=== PATIENT | female | born 1950 | race Caucasian/White ===

== ENCOUNTER 2019-08-28 17:59 | Inpatient (IN) | payer OTHER, MEDICAID ==
[~2019-08-28] VITALS: Ht 160 cm; Wt 64.4 kg
[2019-08-28 18:00] VITALS: Ht 160 cm; Wt 64.4 kg
[2019-08-28] MEDS ORDERED: POTASSIUM CHLO10 MEQ PO (18:42)
[2019-08-28] MEDS ORDERED: ELIQUIS2.5 MG PO (18:42)
[2019-08-28] MEDS ORDERED: AMIODARONE200 MG PO (18:43)
[2019-08-28] MEDS ORDERED: GLIPIZIDE5 M2 PO (18:43)
[2019-08-28] MEDS ORDERED: LIPITOR80 MG PO (18:43)
[2019-08-28] MEDS ORDERED: PHARMASSURE FO0.4 MG PO (18:45)
[2019-08-28] MEDS ORDERED: GOOD SENSE OMEP20 MG PO (18:45)
[2019-08-28] MEDS ORDERED: CARVEDILOL3.125 M1 PO (18:45)
[2019-08-28] MEDS ORDERED: CLARITIN LIQUI-10 MG PO (18:46)
[2019-08-28] MEDS ORDERED: PRILOSEC OTC20 M1 PO (18:48)
[2019-08-28] MEDS ORDERED: ASPIR 8181 MG PO (18:48)
[2019-08-28] MEDS ORDERED: FOLBIC RF1 TAB PO (18:48)
[2019-08-28 19:01] LABS: BASOPHIL % 0.4 % (0-2); PLATELET COUNT 207 x10^3mcL (130-400)
[2019-08-28 19:03] LABS: RED CELL DISTRIBUTION WIDTH 16.9 % (11.5-14.5)
[2019-08-28 19:22] LABS: BILIRUBIN TOTAL 0.4 mg/dL (0.20-1.00); CALCIUM 6.9 mg/dL (8.5-10.1); CARBON DIOXIDE 25.6 mmol/L (21-32); POTASSIUM SERUM 3.5 mmol/L (3.5-5.1)
[2019-08-28 19:23] LABS: ALBUMIN 1.6 g/dL (3.4-5.0); TOTAL PROTEIN, SERUM 4.8 g/dL (6.4-8.2)
[2019-08-28 19:24] LABS: CREATININE SERUM 6.3 mg/dL (0.6-1.0); FREE T4 1.37 ng/dL (0.76-1.46); FREE THYROXINE INDEX 4.3 ug/dL (1.4-4.5); T4(THYROXINE) 11.5 ug/dL (4.7-13.3)
[2019-08-28 19:39] LABS: T3 TOTAL 0.5 ng/mL
[2019-08-28 22:42] VITALS: BP 113/53
[2019-08-29 04:41] LABS: BASOPHIL % 0.3 % (0-2); PLATELET COUNT 222 x10^3mcL (130-400)
[2019-08-29 04:44] LABS: RED CELL DISTRIBUTION WIDTH 17.1 % (11.5-14.5)
[2019-08-29 05:00] LABS: CALCIUM 6.6 mg/dL (8.5-10.1); CARBON DIOXIDE 24.8 mmol/L (21-32); PHOSPHOROUS 4.2 mg/dL (2.5-4.9); POTASSIUM SERUM 4.1 mmol/L (3.5-5.1)
[2019-08-29 05:02] LABS: CREATININE SERUM 6.5 mg/dL (0.6-1.0)
[2019-08-29 07:10] VITALS: BP 105/55
[2019-08-29 11:25] VITALS: BP 130/63
[2019-08-29 16:30] VITALS: BP 155/69
[2019-08-29 22:05] VITALS: BP 165/67
[2019-08-30 06:03] VITALS: BP 164/64
[2019-08-30 06:30] LABS: BASOPHIL % 0.5 % (0-2); PLATELET COUNT 218 x10^3mcL (130-400)
[2019-08-30 06:45] LABS: RED CELL DISTRIBUTION WIDTH 16.8 % (11.5-14.5)
[2019-08-30 06:55] LABS: CALCIUM 6.9 mg/dL (8.5-10.1); CARBON DIOXIDE 23.6 mmol/L (21-32); MAGNESIUM 1.6 mg/dL (1.8-2.4); PHOSPHOROUS 4.2 mg/dL (2.5-4.9); POTASSIUM SERUM 3.3 mmol/L (3.5-5.1)
[2019-08-30 06:59] LABS: CREATININE SERUM 6.7 mg/dL (0.6-1.0)
[2019-08-30 08:35] VITALS: BP 166/71
[2019-08-30 09:00] LABS: BILIRUBIN TOTAL 0.3 mg/dL (0.20-1.00); CALCIUM 6.8 mg/dL (8.5-10.1); CARBON DIOXIDE 21.6 mmol/L (21-32); POTASSIUM SERUM 3.2 mmol/L (3.5-5.1)
[2019-08-30 09:40] LABS: ALBUMIN 1.4 g/dL (3.4-5.0); CREATININE SERUM 6.8 mg/dL (0.6-1.0); TOTAL PROTEIN, SERUM 4.5 g/dL (6.4-8.2)
[2019-08-30 12:30] VITALS: BP 189/91
[2019-08-30 16:30] VITALS: BP 162/73
[2019-08-30 22:14] VITALS: BP 193/91
[2019-08-31 00:58] VITALS: BP 118/64
[2019-08-31 06:23] LABS: BASOPHIL % 0.3 % (0-2); PLATELET COUNT 205 x10^3mcL (130-400)
[2019-08-31 06:31] VITALS: BP 131/57
[2019-08-31 06:34] LABS: RED CELL DISTRIBUTION WIDTH 16.8 % (11.5-14.5)
[2019-08-31 06:38] LABS: CALCIUM 7.1 mg/dL (8.5-10.1); POTASSIUM SERUM 3.2 mmol/L (3.5-5.1)
[2019-08-31 06:58] LABS: CREATININE SERUM 6.7 mg/dL (0.6-1.0)
[2019-08-31 08:24] VITALS: BP 150/75
[2019-08-31 12:35] VITALS: BP 145/70
[2019-08-31 16:33] VITALS: BP 147/78
[2019-08-31 20:46] VITALS: BP 128/67
[2019-09-01 05:13] VITALS: BP 133/62
[2019-09-01 06:26] LABS: BASOPHIL % 0.4 % (0-2); PLATELET COUNT 216 x10^3mcL (130-400)
[2019-09-01 06:41] LABS: RED CELL DISTRIBUTION WIDTH 16.9 % (11.5-14.5)
[2019-09-01 06:58] LABS: CALCIUM 7.8 mg/dL (8.5-10.1); CARBON DIOXIDE 22.6 mmol/L (21-32); POTASSIUM SERUM 3.3 mmol/L (3.5-5.1)
[2019-09-01 07:02] LABS: CREATININE SERUM 6.7 mg/dL (0.6-1.0)
[2019-09-01 08:37] VITALS: BP 139/68
[2019-09-01 13:33] VITALS: BP 115/55
[2019-09-01 17:04] VITALS: BP 134/69
[2019-09-01 19:20] VITALS: BP 139/67
[2019-09-02 05:42] VITALS: BP 130/69
[2019-09-02 09:04] VITALS: BP 114/82
[2019-09-02 13:08] VITALS: BP 163/75
[2019-09-02 15:00] VITALS: BP 119/61
[2019-09-02 16:13] VITALS: BP 119/61
== END 2019-09-02 16:51 | disposition home health service (06) | DRG 637 ==
LOC: ED 17:59 → IC 21:07 → DU 08-29 16:25 → IC 09-02 06:16 → DU 09-02 06:17
PROVIDERS: Emergency Medicine; Internal Medicine; ADMIT Internal Medicine
DX: E11.649 Type 2 diabetes mellitus with hypoglycemia without coma (principal); G93.41 Metabolic encephalopathy; E43 Unspecified severe protein-calorie malnutrition; I12.0 Hypertensive chronic kidney disease with stage 5 chronic kidney disease or end stage renal disease; E87.1 Hypo-osmolality and hyponatremia; N18.6 End stage renal disease; E11.22 Type 2 diabetes mellitus with diabetic chronic kidney disease; E11.65 Type 2 diabetes mellitus with hyperglycemia; D63.1 Anemia in chronic kidney disease; Z99.2 Dependence on renal dialysis; Z68.27 Body mass index [BMI] 27.0-27.9, adult; Z95.1 Presence of aortocoronary bypass graft; Z79.84 Long term (current) use of oral hypoglycemic drugs; Z86.73 Personal history of transient ischemic attack (TIA), and cerebral infarction without residual deficits
CPT/HCPCS: 78226; 82962; 83880; 84439; 87046; 87046-59; A9537; C9113; G0378; J2354; J2405; J2543; J3370; J3475; J3490; J7030; J7040; J7042; J7050; Q0092

== ENCOUNTER 2019-11-02 18:46 | Inpatient (IN) | payer OTHER, MEDICAID ==
[~2019-11-02] VITALS: Ht 154.9 cm; Wt 64.7 kg
[~2019-11-02 18:46] MED LIST: AMIODARONE200 MG PO; ASPIR 8181 MG PO; CARVEDILOL3.125 M1 PO; CLARITIN LIQUI-10 MG PO; ELIQUIS2.5 MG PO; FOLBIC RF1 TAB PO; GLIPIZIDE5 M2 PO; GOOD SENSE OMEP20 MG PO; LIPITOR80 MG PO; PHARMASSURE FO0.4 MG PO; POTASSIUM CHLO10 MEQ PO; PRILOSEC OTC20 M1 PO
--- NOTE | 2019-11-02 19:18 | NUR ---
PT BIBA TO ED FOR C/C OF BACK PAIN. PER PT, BACK PAIN BEGAN "A COUPLE OF DAYS AGO".
--- NOTE | 2019-11-02 19:44 | NUR ---
DR. PERRY AT BEDSIDE.
[2019-11-02 20:59] LABS: BASOPHIL % 0.2 % (0-2); PLATELET COUNT 223 x10^3mcL (130-400)
[2019-11-02 21:08] LABS: ALKALINE PHOSPHATASE 104 U/L (46-116); ALT/SGPT 121 U/L (14-59); AMYLASE 99 U/L (25-115); AST/SGOT 154 U/L (15-37); CALCIUM 7.4 mg/dL (8.5-10.1); CARBON DIOXIDE 27.3 mmol/L (21-32); CHLORIDE SERUM 99 mmol/L (98-107); GLUCOSE SERUM 115 mg/dL (74-106); LIPASE 42 IU/L (73-393); POTASSIUM SERUM 3.8 mmol/L (3.5-5.1); SODIUM SERUM 137 mmol/L (136-145)
[2019-11-02 21:10] LABS: ALBUMIN 1.4 g/dL (3.4-5.0); GFR1 6 mL/min; TOTAL PROTEIN, SERUM 5.2 g/dL (6.4-8.2)
[2019-11-02 21:12] LABS: CREATININE SERUM 7.1 mg/dL (0.6-1.0)
[2019-11-02 21:43] LABS: rbc morphology (normal/abnorm) ABNORMAL (NORMAL)
--- NOTE | 2019-11-02 23:44 | NUR ---
PT IS LAYING IN GURNEY AWAKE, SPEAKING IN FULL CLEAR SENTENCES. PT MEDICATED PER MD ORDER, VERBALIZED UNDERSTANDING OF ALL MEDICATIONS PRIOR TO ADMINISTRATION. RESP E/U, NAD NOTED. RESIDENT AT BEDSIDE WITH PT.
[2019-11-02] MEDS ORDERED: CALCIUM ACETAT667 M3 PO (23:49)
[2019-11-02] MEDS ORDERED: FOL1 PO (23:50)
[2019-11-03] VITALS (8 sets, daily range): BP systolic 75–129; BP diastolic 43–64
--- NOTE | 2019-11-03 00:02 | NUR ---
REPORT CALLED TO ZOHREH EDEN TO ASSUME CARE OF PT.
[2019-11-03 00:20] LABS: CHOLESTEROL/HDL RATIO 2.9
--- NOTE | 2019-11-03 00:20 | NUR ---
RECEIVED PT VIA [facility] FROM E/D, ACCOMPANIED BY RN AND MST MT/US. PT A/A/O X 4, CALM, COOPERATIVE; WEARS GLASSES (W/ PT). ON TELE # 25, SR + 1ST DEG AVB, HR 80, DENIES CHEST PAIN OR DISCOMFORT AT THIS TIME. SCD BY BEDSIDE. JOSHUA LUNGS CONGESTED, CHEST RISING EVENLY, R/A, 96%, PROD COUGH W/ CLEAR SPUTUM, HOB UP. ABD SOFT, ROUND, NON-TENDER, NORMOACTIVE BOWEL SOUNDS X 4 QUADS, LAST BM 11/02/19, DIARRHEA. ANURIC, ON NIGHTLY PD (PD SITE TO [facility]); ALSO NON-WORKING RFA SHUNT. GENERALIZED WEAKNESS, USES W/C @ HOME, C/O L UPPER BACK RADIATING TO CHEST CONSTANT SHARP PAIN 4/10, EXACERBATED BY MOVEMENT, RELIEVED BY REST AND PAIN MEDICATION; FALL RISK PROTOCOL IN PLACE. UNSTAGEABLE P/U TO R TROCHANTER, COVERED BY 4X4 GAUZE AND ISLAND DRESSING, CDI. IV SITE LH 24G, CDI. ORIENTED PT TO ROOM, BED CONTROLS, CALL LIGHT SYSTEM. SIDE RAILS UP X 2, BED IN LOW POSITION. WILL ENDORSE TO ZOHREH EDEN.
--- NOTE | 2019-11-03 04:52 | NUR ---
Pt. has c/o of coughing a lot at this time, and was coughing so much that it ended up caushing her to gag. Educated pt. to use the emesis bag to help collect her phlegm and called RT to give PRN treatment as ordered to help facilitate good breathing and to help with loosening up the secretions at this time. Otherwise, pt. stable, no c/o of SOB, no c/o of pain, chest pain, s/o distress. Will continue to monitor pt. until the end of shift and endorse to next shift RN.
[2019-11-03 07:17] LABS: CALCIUM 7.1 mg/dL (8.5-10.1); CARBON DIOXIDE 26.4 mmol/L (21-32); MAGNESIUM 1.1 mg/dL (1.8-2.4); PHOSPHOROUS 4.8 mg/dL (2.5-4.9)
--- NOTE | 2019-11-03 07:20 | NUR ---
RECEIVED REPORT FROM MEEK BRUNER. PATIENT RESTING COMFORTABLY IN BED WITH ALL NEEDS MET. SALINE LOCK TO LEFT HAND IS PATENT AND INTACT. NO REDNESS OR PAIN. TELE # 25 IN [place]. PT DENIES CHEST PAIN. PT ON ROOM AIR. NO C/O SOB AND NO DISTRESS NOTED. SWAB OF RT HIP ULCER OBTAINED BY MEEK AT THIS TIME. ALL QUESTIONS AND CONCERNS ADDRESSED.
[2019-11-03 07:28] LABS: BASOPHIL % 0.3 % (0-2); PLATELET COUNT 216 x10^3mcL (130-400)
[2019-11-03 07:38] LABS: CREATININE SERUM 7.4 mg/dL (0.6-1.0)
[2019-11-03 07:40] LABS: RED CELL DISTRIBUTION WIDTH 19.1 % (11.5-14.5)
--- NOTE | 2019-11-03 08:38 | NUR ---
NOTIFIED DR BARRAGAN OF PATIENT BP 71/36 & 78/38. ALSO NOTIFIED OF TROPONIN 0.120. DR STATED THAT THEY WILL BE BY TO SEE THE PATIENT SHORTLY.
--- NOTE | 2019-11-03 09:39 | NUR ---
SPOKE WITH DR BARRAGAN ABOUT BP AGAIN AND INQUIRED ABOUT POSSIBLE BOLUS. PT IS C/O MILD DIZZINESS BUT OTHERWISE ASYMPTOMATIC. ALSO INQUIRED ABOUT PERITONEAL DIALYSIS. DR LAZOS TO ORDER BOLUS AND STATED THAT A NEPHROLOGY CONSULT IS ORDERED.
--- NOTE | 2019-11-03 13:19 | NUR ---
IN TO RECHECK BP. BP IS 112/43, IMPROVED FROM PREVIOUS. WILL NOTIFY DR BARRAGAN.
--- NOTE | 2019-11-03 13:22 | NUR ---
RECEIVED CALL FROM DR MARLO ODONNELL NOTIFYING THAT HE ORDERED PERITONEAL DIALYSIS AND HAS TEXTED [facility]AMA. HE REQUESTED THAT I ALSO ATTEMPT TO CONTACT [facility]AMA AND LET HER KNOW THAT HE CAN BE CONTACTED DIRECTLY FOR CLAIRIFICATION OF ORDERS IF NEEDED. [facility] CALLED AND MESSAGE LEFT.
--- NOTE | 2019-11-03 14:14 | NUR ---
RECEIVED CALL FROM [facility]AMA NOTIFYING THAT SHE GOT MY MESSAGE AND WILL BE HERE FOR PERITONEAL DIALYSIS TONIGHT.
--- NOTE | 2019-11-03 14:16 | NUR ---
DR BARRAGAN NOTIFIED OF TROPONIN 0.140
--- NOTE | 2019-11-03 14:47 | NUR ---
PATIENT HAVING ECHO DONE NOW.
--- NOTE | 2019-11-03 16:10 | NUR ---
RECEIVED CALL FROM LAB INFORMING THAT ANOTHER STOOL SAMPLE WILL NEED TO BE COLLECTED FOR CULTURE AND WBC. PATIENT INFORMED TO NOTIFY WHEN SHE HAS BOWEL MOVEMENT FOR COLLECTION.
--- NOTE | 2019-11-03 16:51 | NUR ---
PT C/O CHEST AND BACK PAIN 5/10 THAT IS WORSENED WITH COUGHING. PT REPORTS PAIN IS THE SAME PAIN SHE CAME IN WITH BUT NOT SEVERE. NORCO ADMINISTERED (SEE eMAR). WILL REASSESS.
--- NOTE | 2019-11-03 19:12 | NUR ---
10 MINUTES AFTER BEGINNING INFUSION OF ZOSYN, PT C/O SEVERE SHIVERING. ZOSYN STOPPED AND NS RESUMED. REGIONAL ACCOUNT MANAGER CALL TO NOTIFY THAT PATIENT HR INCREASED TO 140'S. DR MOORE CALLED AND INFORMED THAT NO ITCHING, SWELLING, OR RASH ARE NOTED. STATED TO MONITOR FOR AND THEN RESUME ZOSYN AFTER A WHILE. IF PATIENT DEVELOPS SIMILAR SYMPTOMS THEN HE WILL D/C ZOSYN.
--- NOTE | 2019-11-03 20:21 | NUR ---
REPORT GIVEN TO MEEK BRUNER. ALL QUESTIONS AND CONERNS ADDRESSED. ALL CARES ENDORSED.
--- NOTE | 2019-11-03 20:25 | NUR ---
Pt. received from day shift, currently resting in bed, with peritoneal dialysis currently running at this time. Pt. is a/o x3, able to make needs known, able to follow commands at this time. Pt. at this time has no c/o of pain, chest pain, h/a, n/v, SOB, or s/o distress at this time. Pt. OB stool culture came back negative as per day shift, lab required a different sample, will attempt to get sample this shift. Otherwise, pt. stable, safety in check with call light placed within reach, educated pt. on when and how to use call light system. Will continue to monitor.
--- NOTE | 2019-11-04 00:25 | NUR ---
ASSUMED CARE OF PT AT THIS TIME. PT IS AWAKE, ALERT,ORIENTED X4. SHE IS WATCHING TV. NO C/O DISCOMFORT. PERITONEAL DIALYSI IN PROGRESS.
[2019-11-04 04:51] VITALS: BP 107/52
--- NOTE | 2019-11-04 05:30 | NUR ---
PERITONEAL DIALYSIS COMPLETED AT THISTIME W/ 5620 ML OUTPUT PER DIALYSIS NURSE. PT IN STABLE CONDITION.
--- NOTE | 2019-11-04 05:39 | NUR ---
PT SLEPT FAIRLY. SHE REMAINS ALERT AND ORIENTED X4. NO EPISODE OF SOB OR RESP. DISTRESS. SHE HAD NO C/O CHEST PAIN. DRESSING TO RT HIP CHANGED X1 ( WHEN PHOTO TAKEN) . PERITONEAL DIALYSIS STILL IN PROGRESS. ALL NEEDS ATTENDED TO.
--- NOTE | 2019-11-04 06:09 | NUR ---
PERITONEAL DIALYSIS DONE AT THIS TIME W/ 620 ML OUTPUT PER DIALYSIS NURSE.
--- NOTE | 2019-11-04 06:24 | NUR ---
AIR MATTRESS APPLIED TO BED .
--- NOTE | 2019-11-04 06:43 | NUR ---
PT AWAKE AND RESTING COMFORTABLY IN BED. SHE IS WATCHING TV. SHE REMAINS ALERT AND ORIENTED X4. SHE HAD NO EPISODE OF RESP. DISTRESS. SHE HAD NO C/O PAIN. PERITONEAL DIALYSIS COMPLETED THIS SHIFT W/ 620 ML OUTPUT. IV SITE TO LT HAND W/ NO S/S OF INFILTRATION. ALL NEEDS ATTENDED TO.
[2019-11-04 07:12] LABS: BASOPHIL % 0.6 % (0-2); PLATELET COUNT 220 x10^3mcL (130-400)
[2019-11-04 07:21] LABS: RED CELL DISTRIBUTION WIDTH 19.5 % (11.5-14.5)
--- NOTE | 2019-11-04 07:30 | NUR ---
RECEIVED PATIENT AWAKE/ALERT IN BED, NO C/O PAIN AT THIS TIME. TELE #25 SR W/ 1ST AVB, HR 75 NOTED. IV TO LH INTACT AND SL NOTED. POC EXPLAINED. CALL LIGHT WITHIN REACH. STUDENT ANTONELLA HELP PATIENT WITH HER BREAKFAST. CALL LIGHT WITHIN REACH.
[2019-11-04 07:35] LABS: CALCIUM 7.8 mg/dL (8.5-10.1); CARBON DIOXIDE 26.5 mmol/L (21-32); MAGNESIUM 1.6 mg/dL (1.8-2.4); PHOSPHOROUS 4.4 mg/dL (2.5-4.9); POTASSIUM SERUM 3.4 mmol/L (3.5-5.1)
[2019-11-04 07:38] LABS: CREATININE SERUM 6.9 mg/dL (0.6-1.0)
[2019-11-04 08:40] VITALS: BP 95/51
--- NOTE | 2019-11-04 10:01 | NUR ---
PATIENT IN BED ASLEEP AROUSABLE, SCOTT STUDENT NURSE REPOSITION PATIENT UP IN BED, ALL PO MEDS ADMINISTERED. PATIENT TOOK ONE PILL AT TIME AND TOLERATED. NEEDS MET. CONT TO MONITOR.
--- NOTE | 2019-11-04 11:00 | NUR ---
DR. BREWER WITH RESIDENT AT BEDSIDE DISCUSS WITH PATIENT POC AND PER DR. BREWER KEEP PATIENT ONE MORE DAY UNTIL DIARRHEA CONTROL, PATIENT REPORT DIARRHEA HAS STOP SINCE THIS MORNING.
[2019-11-04 12:39] VITALS: BP 133/63
--- NOTE | 2019-11-04 12:53 | NUR ---
DR. BARRAGAN WAS INFORM DR. ROMERO WANT DOCTOR TO DOCTOR REPORTABOUT PATIENT CARE, GAVE PHONE # [phone] BARRAGAN.
--- NOTE | 2019-11-04 13:41 | NUR ---
PATIENT SITTING UP IN BED ON BREATHING TX, NO COMPLAIN. ZOSYN IVPB INFUSING TO LH IV PATENT. NEEDS MET. CONT TO MONITOR.
--- NOTE | 2019-11-04 14:04 | NUR ---
MAGNESIUM 2 GM IVPB ADMINISTERED FOR MG 1.6 CONT TO MONITOR.
--- NOTE | 2019-11-04 15:06 | NUR ---
PATIENT SAT UP IN BED WITH FAMILY MEMBERS AT BEDSIDE, NO NEEDS ANYTHING AT THIS TIME. MGRIDER INFUSING WELL AT 25ML/HR, CONT TO MONITOR.
[2019-11-04 16:27] VITALS: BP 90/50
--- NOTE | 2019-11-04 16:33 | NUR ---
PATIENT RESTING IN BED AWAKE/ALERT, SISTER REMAIN AT BEDSIDE. BS 90 NO COVERAGE NEEDED. CALL KITCHEN FOR BROTH AND JELLO PER PATIENT REQUEST. NEED MET. CALL LIGHT WITHIN REACH
--- NOTE | 2019-11-04 18:10 | NUR ---
PATIENT EATING AT THIS TIME, STATED EVERYTHING IS OKAY, DON'T NEED ANYTHING ELSE. CALL LIGHT WITH IN REACH.
--- NOTE | 2019-11-04 19:35 | NUR ---
RECEIVED REPORT FROM AM NURSE FRANKIE. PT LAYING DOWN IN BED. PT AAOX4, ABLE TO MAKE NEEDS KNWON AND FOLLOW COMMANDS. ON TELE#25 READING SR WITH 1S AVB AT 83. DENIES CP/PRESSURE AT THIS TIME. PALPABLE PULSES TO ALL EXTREMETIES. NO EDEMA NOTED. LUNG SOUNDS DIMINISHED TO THE BASES. BREATHING EVEN AND UNLABORED ON RA. NO ACUTE DITRESS NOTED. C/O PRODUCTIVE COUGH, WITH CLEAR SPUTUM. ABD SOFT AND NONDISTENDED. ACTIVE BS X4 QUAD. DENIES N/V. STATES HAVING LOOSE STOOLS YESTERDAY. NO BM TODAY. ANURIC. ON PD. PT RECEIVING PD AT THIS TIME. DIALYSIS NURSE AT BEDSIDE. GENERALIZED WEAKNESS. CHA[place]AST AT THIS TIME. ON AIRMATTRESS. WOUND TO RIGHT HIP COVERED WITH DRESSING. DRESSING. CDI. BED AT LOWEST SETTING. SIDE RAILS X2 UP. CALL LIGHT WIHTING REACH. WILL CONT TO MONITOR.
[2019-11-04 22:23] VITALS: BP 133/90
--- NOTE | 2019-11-05 00:05 | NUR ---
PT AWAKE, BREATHING EVEN AND UNLABORED ON RA. ASSISTED PT REPOSITIONING IN BED. TOLERATING WELL. PT HAVING PD AT THIS TIME. NO ACUTE DISTRESS NOTED. BED AT LOWEST SETTING. SIDE RAILS X2 UP. CALL LIGHT WITHING REACH. WILL CONT TO MONITOR.
[2019-11-05 05:53] VITALS: BP 115/50
[2019-11-05 06:45] LABS: CALCIUM 7.9 mg/dL (8.5-10.1); CARBON DIOXIDE 26.3 mmol/L (21-32); MAGNESIUM 2.1 mg/dL (1.8-2.4); PHOSPHOROUS 4.2 mg/dL (2.5-4.9); POTASSIUM SERUM 3.6 mmol/L (3.5-5.1)
--- NOTE | 2019-11-05 06:48 | NUR ---
PT SLEPT AT INTERVALS THROUGHOUT THE NIGHT, BREATHING EVEN AND UNLABORED ON RA. NO SIGNIFICANT CHANGES DURING SHIFT. ALL NEEDS ASSESSED AND ATTENDED TO. BED AT LOWEST SETTING. SIDE RAILS X2 UP. CALL LIGHT WITHING REACH. WILL ENDORSE CARE. TO AM NURSE.
[2019-11-05 06:50] LABS: CREATININE SERUM 6.7 mg/dL (0.6-1.0)
--- NOTE | 2019-11-05 06:51 | NUR ---
RECEIVED CRITICAL LABS: BUN-33, CREATININE-6.7. PRIMARY NURSE-GEORGINA MADE AWARE.
[2019-11-05 06:57] LABS: BASOPHIL % 0.3 % (0-2); PLATELET COUNT 212 x10^3mcL (130-400)
[2019-11-05 06:58] LABS: RED CELL DISTRIBUTION WIDTH 19.8 % (11.5-14.5)
--- NOTE | 2019-11-05 07:25 | NUR ---
RECEIVED PATIENT ASLEEP AROUSABLE, NO COMPLAIN. TELE #25 SR W/ HR 73 NOTED. ABX COMPLETED IV HEPLOCK. DISCUSS POC. CALL LIGHT WITHIN REACH.
[2019-11-05 08:43] VITALS: BP 100/41
--- NOTE | 2019-11-05 09:40 | NUR ---
REPOSITION PATIENT UP IN BED, ALL PO MEDS ADMINISTERED ONE AT A TIME, TOLERATED WELL. NEEDS ATTENDED. PATIENT ABLE TO SPIT UP THICK WHITISH PHLEGM NOTED. CONT TO MONITOR.
--- NOTE | 2019-11-05 10:59 | NUR ---
WOUND CARE EVALUATION NOTE: REASON FOR EVALUATION: LOW EDGAR SCORE AND RIGHT TROCHANTER PRESSURE ULCER SKIN ASSESSMENT DONE WITH THIS 69 Y/O FEMALE PT ADMITTED TO [facility] – [place] WITH INITIAL DX COUGH AND WEAKNESS. PAST MEDICAL HX INCLUDES, DM, A -FIB, CVA, CABG, and ESRD. PT. ADMITTED WITH UN-STAGEABLE PRESSUREULCER. ALL ABOVE INFORMATION OBTAINED FROM ADMISSION H&P. PT IS AWAKE, AAX4. SKIN IS WARM AND DRY, BLE NO HAIR GROWTH, NO EDEMA. DORSAL PEDAL PULSES PRESENT AND NORMAL. CAPILLARY REFILLED < 2 SEC. PLAN OF CARE DISCUSSED WITH PRIMARY RN. RECOMMENDATION DISCUSSED WITH DR. MIRANDA. INTEGUMENTARY: -ABDOMEN DISTENTED, SOFT TO TOUCH. LLQ ABD PERITONEAL CATH IN PLACE DRESSING DRY AND CLEAN. -MOISTURE ASSOCIATE DERMATITIS (IAD) TO: B/L GROINS EXTENDED TO PERINEUM REDNESS WITH SKIN INTACT -BLANCHABLE REDNESS TO SACROCOCCYX 2X2CM -PRESSURE ULCER UN-STAGEABLE RIGHT [id number] CM DEPTH UTD, IRREGULAR SHAPE, 100% SOFT BROWN SLOUGH TO WOUND BED, NO ODOR, PER-WOUND SKIN INTACT. RECOMMENDATIONS: -SURGEON CONSULT FOR DEBRIDEMENT RIGHT TROCHANTER -KEEP SKIN DRY AND CLEAN AT ALL TIMES, PLEASE CHECK Q2H AND PRN FOR INCONTINENCY OF BOWEL AND BLADDER. -APPLY HYDRAGUARD TO R/L GROINS EXTENDED TO PERINEUM BID AND PRN IF SOILING -CLEANSE RIGHT TROCHANDAR WITH WOUND CLEANSING SOLUTION AND APPLY HYDROCOLLOID DRESSING Q3D AND PRN IF SOILING -APPLY FORM DRESSING TO SACROCOCCY Q7 DAYS AND PRN IF SOILING PREVENTION -OFFLOAD BILATERAL HEELS BY PLACING PILLOWS UNDER CALVES UNLESS OTHERWISE CONTRAINDICATED -PRESSURE REDISTRIBUTION SURFACE THERAPY -TURN AND REPOSITION Q2H, OFFLOAD SACRALCOCCYX AND RIGHT HIP -CONTINUE TO FOLLOW RD RECOMMENDATIONS ALL ABOVE RECOMMENDATIONS DISCUSSED WITH PRIMARY RN. WILL FOLLOW UP PT Q7-10 DAYS. PLEASE CONTACT WOUND CARE NURSE FOR ANY QUESTION AND CHANGE OF WOUND CONDITION.
--- NOTE | 2019-11-05 11:00 | NUR ---
DR. ZAMORA AT BEDSIDE WITH RN, EXAM PATIENT RT HIP WOUND, PER DR. ZAMORA WILL NEED TO DEBRIDE WOUND. WILL SCHEDULE FOR THURSADY AT 0800 AM. WOUND SITE CLEAN W/ NS PATTED DRY APPLIED BETADINE ORDERED, COVER W/ ISLAND DRESSING, INCONT OF BM CLARIBEL CARE PROVIDED. REPOSITIONED. CALL LIGHT WITHIN REACH.
[2019-11-05 12:20] VITALS: BP 93/41
--- NOTE | 2019-11-05 12:38 | NUR ---
CALLED AND SPOKE TO , PLANNING TO DO SURGERY ON MONDAY, MADE AWARE THAT PT IS ON ELIQUIS, SAYS TO HOLD ELIQUIS. DOING ROUNDS AND (RESIDENT ASSIGNED) AND BOTH MADE AWARE OF ABOVE. WILL HOLD THE ELIQUIS. FRANKIE BRUNER ASSIGNED TO THIS PT AWARE OF ABOVE.
--- NOTE | 2019-11-05 12:52 | NUR ---
DR. FULLER AND RESIDENT SEEN PATIENT AT BEDSIDE, INFORM MD BLOOD CULTURE POSITIVE FOR GRAM POSITIVE BACILLI; BS CHECK 60 WILL REPEAT WHEN PATIENT FINISH HER APPLESAUCE. FAMILY MEMBERS AT BEDSIDE. DEBRIDEMENT STILL SCHEDULE FOR MONDAY AND HELD ELIQUIS.
--- NOTE | 2019-11-05 13:11 | NUR ---
PATIENT SITTING UP IN BED AWAKE/ALERT STATE FEEL BETTER, EATING HER LUNCH AT THIS TIME, REFUSED DEXTROSE IVP FOR BS 56. REQUEST RN TO COME BACK LATER TO RECHECK AFTER LUNCH. CONT TO MONITOR.
--- NOTE | 2019-11-05 14:19 | NUR ---
PATIENT AWAKE/ALERT AND WORKING PT AT BEDSIDE PER PATIENT "I FEEL BETTER THAN EARLIER"; REPEAT (L) BS 39 AND (R) BS 44 ON BOTH HANDS. PATIENT STILL REFUSED D50% CONT TO MONITOR. ZOSYN IVPB INFUSING TO LH IV PATENT. CONT TO MONITOR.
[2019-11-05 14:38] VITALS: BP 93/41
--- NOTE | 2019-11-05 14:43 | NUR ---
D50% 50ML IVP ADMINISTERED BS 44. PATIENT ON BREATHING TX AT THIS TIME. CONT TO MONITOR.
--- NOTE | 2019-11-05 15:50 | NUR ---
PATIENT RESTING IN BED NO COMPLAIN, HOT TEA GIVEN PER REQUEST, REPEAT BS 150 AFTER DEXTROSE 50% GIVEN. CONT TO MONITOR.
[2019-11-05 16:17] VITALS: BP 109/48
--- NOTE | 2019-11-05 18:31 | NUR ---
PATIENT SAT UP IN BED EATING HER DINNER, NO COMPLAIN. CAITY AT BEDSIDE FIXED PD MACHINE BEEPING. NEEDS MET. CALL LIGHT WITHIN REACH.
--- NOTE | 2019-11-05 19:20 | NUR ---
RECEIVED REPORT FROM DAY SHIFT NURSE, FRANKIE BRUNER. PT IS AAOX4. SPEECH IS CLEAR. DENIES HOWARD. ON TELE #25 READING SR 80. DENIES CP. PULSES ARE PALPABLE. NO EDEMA NOTED. BREATHING IS EVEN AND UNLABORED ON RA. LUNG SOUNDS DIMINISHED JOSHUA. NO SIGNS OF RESP. DISTRESS. ABD IS SOFT AND NONDISTENDED. DENIES N/V/D. PT IS ANURIC. PD ON LLQ. AV SHUNT TO RFA NONFUNCTIONING. RECEIVING DIALYSIS NOW. GENERALIZED WEAKNESS. WHEELCHAIR BASELINE. PT BEDBOUND SINCE CVA. AIR MATTRESS APPLIED. WOUND TO R HIP, DRSG CDI. DENIES ANY PAIN AT THIS TIME. IV TO LH DRY AND INTACT. NO ERYTHEMA NOTED. BED IN LOWEST POSITION. CALL LIGHT WITHIN REACH. WILL CONTINUE TO MONITOR.
[2019-11-05 20:20] VITALS: BP 92/44
--- NOTE | 2019-11-05 21:15 | NUR ---
ROUTINE MEDICATIONS WERE GIVEN AND TOLERATED WELL. NO ACUTE DISTRESS NOTED. BREATHING IS EVEN AND UNLABORED ON RA. NO SIGNS OF RESP. DISTRESS. PT REPOSITIONED AND CLARIBEL CARE PROVIDED. DENIES ANY PAIN AT THIS TIME. BED IN LOWEST POSITION. CALL LIGHT WITHIN REACH. WILL CONTINUE TO MONITOR.
--- NOTE | 2019-11-05 23:10 | NUR ---
PT C/O 07/06 BACK PAIN. MEDICATED WITH NORCO PRN PER JAN ORDER. WILL REASSESS AND CHECK EFFECTIVENESS. BREATHING IS EVEN AND UNLABORED ON RA. NO SIGNS OF RESP. DISTRESS. BED IN LOWEST POSITION. CALL LIGHT WITHIN REACH. WILL CONTINUE TO MONITOR.
--- NOTE | 2019-11-06 01:47 | NUR ---
PT IS RESTING COMFORTABLY WITH EYES CLOSED, BUT EASILY AROUSABLE WHEN SPOKEN TO. BREATHING IS EVEN AND UNLABORED ON RA. NO SIGNS OF RESP. DISTRESS. BED IN LOWEST POSITION. CALL LIGHT WITHIN REACH. WILL CONTINUE TO MONITOR.
[2019-11-06 05:18] VITALS: BP 108/42
[2019-11-06 06:00] LABS: BASOPHIL % 0.2 % (0-2); PLATELET COUNT 204 x10^3mcL (130-400)
[2019-11-06 06:45] LABS: CALCIUM 8.2 mg/dL (8.5-10.1); CARBON DIOXIDE 28.9 mmol/L (21-32); MAGNESIUM 1.9 mg/dL (1.8-2.4); PHOSPHOROUS 4.1 mg/dL (2.5-4.9); POTASSIUM SERUM 3.2 mmol/L (3.5-5.1)
--- NOTE | 2019-11-06 06:47 | NUR ---
PT SLEPT IN SHORT INTERVALS THROUGHOUT THE NIGHT AND COMPLIED WITH NURSING CARE WITH NO ACUTE EVENTS OCCURRING DURING THE SHIFT. COMFORT AND SAFETY MEASURES MAINTAINED. ALL NEEDS ASSESSED AND ATTENDED TO. BREATHING IS EVEN AND UNLABORED ON RA. NO SIGNS OF RESP DISTRESS. PT DENIES ANY PAIN AT THIS TIME. BED IN LOWEST POSITION. CALL LIGHT WITHIN REACH. WILL CONTINUE TO MONITOR AND ENDORSE CARE TO DAY SHIFT NURSE.
[2019-11-06 06:52] LABS: CREATININE SERUM 6.4 mg/dL (0.6-1.0)
--- NOTE | 2019-11-06 06:52 | NUR ---
RECEIVED CRITICAL LAB, NUCLEAR MEDICINE PHYSICIAN 6.4. CALLED DR. MOORE. DR. MOORE STATED TO CALL CAMELIA JEAN. CALLED CAMELIA JEAN, STATED SHE IS NOT WORKING TODAY, IT IS FERNANDO JEAN. CALLED FERNANDO JEAN, NO ANSWER.
--- NOTE | 2019-11-06 07:50 | NUR ---
MIRANDA KING, AT NURSING STATION NOW. REPORTED PATIENT'S ABNORMAL LAB RESULTS TO MIRANDA KING.
--- NOTE | 2019-11-06 08:00 | NUR ---
SHIFT ASSESSMENT DONE. PATIENT A/A/OX4; GENERAL WEAKNESS. BED RESTING NOW. TELE#30; SR W/ BBB; HR =82. DENIED CHEST PAIN. BREATH SOUND DIMINISHED JOSHUA BASES, BUT CLEAR JOSHUA. O2 SAT 94% ON RA. PRODUCTIVE COUGH WITH CLEAR MUCOUS. C/O POOR APPETITE AND GURGLED WITH EATING FOOD. BUT PATIENT ABLE TO SWALLOW PILLS. SHE REFUSED TO CRASHED ORAL MEDS. ESRD. NO VOID X 2 YEARS. PERITONEAL DIALYSIS Q NIGHT. P/D ACCESS TO LLQ ABD. UNFUNCTIONAL AV SHUNT TO RT ARM. LARGE SKIN ULCER TO RT HIL. IVHL'D TO L HAND W/ 24 G NEEDLE. ON AIR MATTRESS. CALL LIGHT IN REACH.
[2019-11-06 08:40] VITALS: BP 112/53
--- NOTE | 2019-11-06 11:30 | NUR ---
BS = 43; REPEATED BS = 45; PATIENT A/A/OX4; CLEAR SPEECH. DENIED DIZZINESS. WITH P/T FOR PHYSICAL THERAPY. ORANGE JUICE W/ SUGAR 1 PACK GIVEN. PATIENT STATED WITH SWALOOW DIFFICULTY. D50 1 AMP IVP GIVEN. CONTINUE MONITOR.
--- NOTE | 2019-11-06 12:01 | NUR ---
AFTER D 50 GIVEN. RECHECKED BS =179. CONDITION STABLE. CONTINUE MONITOR.
--- NOTE | 2019-11-06 12:30 | NUR ---
DR. Cuba PURDY SAW PATIENT. NEW ORDER OF REGLAN 5MG IVP GIVEN. CONSENT OF EGD SIGNED BY PATIENT.
[2019-11-06 12:31] VITALS: BP 102/42
--- NOTE | 2019-11-06 14:05 | NUR ---
WENT TO GI LAB.
[2019-11-06 17:30] VITALS: BP 82/34
--- NOTE | 2019-11-06 17:41 | NUR ---
B/P = 82/34. NS BOLUS 600CC GIVEN IN GI LAB. REPORTED TO MIRANDA KING. NEW TELEPHONE ORDER GIVEN.
--- NOTE | 2019-11-06 18:50 | NUR ---
PRO-AMATINE PO GIVN FOR HYPOTENTION PER ORDER. PATIENT HAD NO VOIDING FOR 2 YRS. NO BM THIS SHIFT. EGD DONE. SWALLOW EVEL DONE. CHANGED TO PUREED DIET PER ORDER. ENDORSED CARE TO NOC NURSE.
--- NOTE | 2019-11-06 19:24 | NUR ---
Bedside swallow evaluation completed. Pt is alert and verbally responsive. Pt refused trials of solid diet due to c/o discomfort to swallow and took only Puree texture and Thin liquids in small quantity. WFL oral phase swallow. No cough or no vocal quality chnaged noted when pt took Puree and Thin liquids in small size. Provide Puree diet and thin liquids. Instructed pt for safe swallow strategies and pt understood well. Pt c/o discomfort to initiate dry swallow. Upper GI endocopy results indicated Exudative esophagitis per medical record. Consider to follow up with GI. Speech Pathology to follow up for diet advance trials. Informed attending Nurse.
--- NOTE | 2019-11-06 19:25 | NUR ---
RECEIVED PT IN BED AWAKE, ALERT,ORIENTED X4. NO SOB ON ROOM AIR. W/ DRESSING TO RT HIP INTACT. SHE HAS NO C/O PAIN AT THIS TIME. HEMODIALYSIS NURSE HERE AND STARTED PERITONEAL DIALYSIS ON PT. W/ HL TO LT HAND INTACT. CALL LIGHT W/IN REACH.
[2019-11-06 20:55] VITALS: BP 91/50
--- NOTE | 2019-11-06 21:15 | NUR ---
PT WAS ABLE TO SWALLOW HER PO MEDS WELL ( NOT CRUSHED).
--- NOTE | 2019-11-06 23:15 | NUR ---
PT SIGNED CONSENT FOR DEBRIDEMENT DECUBITUS ULCER RT HIP. PT VERBALIZED UNDERSTANDING. PERITONEAL DIALYSIS IN PROGRESS.
--- NOTE | 2019-11-07 05:17 | NUR ---
PT SLEPT AT LONG INTERVALS. SHE REMAINS ALERT AND ORIENTED X4. SHE IS KEPT NPO FOR SX TODAY. PERITONEAL DIALYSIS STILL ONGOING. SHE HAD NO C/O PAIN. ALL NEEDS ATTENDED TO.
[2019-11-07 05:56] VITALS: BP 94/54
[2019-11-07 06:39] LABS: BASOPHIL % 0.5 % (0-2); PLATELET COUNT 205 x10^3mcL (130-400)
[2019-11-07 06:48] LABS: CALCIUM 8.1 mg/dL (8.5-10.1); CARBON DIOXIDE 26.6 mmol/L (21-32)
[2019-11-07 06:50] LABS: RED CELL DISTRIBUTION WIDTH 19.3 % (11.5-14.5)
--- NOTE | 2019-11-07 06:58 | NUR ---
REPORT GIVEN TO OR NURSE DAY.
[2019-11-07 07:00] LABS: CREATININE SERUM 6.5 mg/dL (0.6-1.0)
--- NOTE | 2019-11-07 07:10 | NUR ---
PT TAKEN DOWN TO OR.
--- NOTE | 2019-11-07 07:16 | NUR ---
RECEIVED REPORT FROM ZOHREH MORELOS, NOC. PATIENT WAS IN OR.
--- NOTE | 2019-11-07 09:15 | NUR ---
PATIENT STILL IN OR. REPORT GIVEN TO ZOHREH WISEMAN. FOR CONTINUE CARE.
--- NOTE | 2019-11-07 09:16 | NUR ---
RECEIVED REPORT FROM ZOHREH REYES. PATIENT IS CURRENTLY IN OR FOR DEBRIDEMENT OF DECUBITUS ULCER. PATIENT HAS NOT RETURNED AT THIS TIME. WILL ASSESS PATIENT UPON RETURN.
--- NOTE | 2019-11-07 09:25 | NUR ---
PATIENT RETURNED FROM OR. VITAL SIGNS STABLE. 85 BPM, 18 RESP, 94% O2 SAT, 145/71 BP, TEMP 97.1. NO ACUTE RESP DISTRESS NOTED AT THIS TIME. NO C/O PAIN. DRESSING TO R HIP C/D/I. NO BLEEDING OR DRAINAGE NOTED. CLEAR LUNG SOUNDS. NORMOACTIVE BOWEL SOUNDS. REMAINS ON PUREE DIET DUE TO DIFFICULTY SWALLOWING SOLID FOODS S/P EGD. WILL CRASH PO MEDS FOR COMFORT. SAFETY PRECAUTION IN PLACE. CALL LIGHT WITHIN REACH. WILL CONTINUE TO MONITOR.
--- NOTE | 2019-11-07 09:35 | NUR ---
P.T. NOTES UNABLE TO SEE PATIENT AT THIS TIME DUE TO BEING DOWN IN OR.
--- NOTE | 2019-11-07 12:20 | NUR ---
PATIENT IN BED, EATING LUNCH. STABLE. FAMILY AT BEDSIDE. NO ACUTE RESP DISTRESS NOTED. NO C/O PAIN OR PRESSURE AT THIS TIME. IV INTACT AND PATENT, NO INFILTRATION NOTED. DRESSING TO RIGHT HIP C/D/I. SAFETY PRECAUTION IN PLACE. CALL LIGHT WITHIN REACH. WILL CONTINUE TO MONITOR.
--- NOTE | 2019-11-07 12:25 | NUR ---
SPOKE WITH MIRANDA KING REGARDING POTASSIUM LEVEL 3.0. PER FERNANDO, THAT IS OK. NO NEW ORDERS AT THIS TIME. WILL CONTINUE TO MONITOR.
[2019-11-07 12:40] VITALS: BP 133/63
--- NOTE | 2019-11-07 14:33 | NUR ---
PHYSICAL THERAPY DAILY NOTES CO-SIGN All documentation done by the Sales Agent Protective Service for 11/07/19 has been reviewed. I agree with the documentation. Reviewed/Co-Signed by: Fay Valentino PT Documentation Done by:KRANTHI ROTH PTA
--- NOTE | 2019-11-07 15:00 | NUR ---
PATIENT IN BED. STABLE. FAMILY AT BEDSIDE. NO ACUTE RESP DISTRESS NOTED. NO C/O PAIN OR PRESSURE AT THIS TIME. IV INTACT AND PATENT, NO INFILTRATION NOTED. DRESSING TO RIGHT HIP C/D/I. SAFETY PRECAUTION IN PLACE. CALL LIGHT WITHIN REACH. WILL CONTINUE TO MONITOR.
[2019-11-07 16:28] VITALS: BP 90/54
--- NOTE | 2019-11-07 16:43 | NUR ---
PATIENT COMPLAINING OF PAIN TO EPIGASTRIC THAT RADIATES TO THE BACK. TYLENOL PO GIVEN CRUSHED ORDERED. WILL CONTINUE TO MONITOR.
--- NOTE | 2019-11-07 18:40 | NUR ---
PATIENT IN BED, EATING DINNER. STABLE. FAMILY AT BEDSIDE. NO ACUTE RESP DISTRESS NOTED. NO C/O PAIN OR PRESSURE AT THIS TIME. STATED LAST PAIN MED WAS EFFECTIVE. IV INTACT AND PATENT, NO INFILTRATION NOTED. DRESSING TO RIGHT HIP C/D/I. SAFETY PRECAUTION IN PLACE. CALL LIGHT WITHIN REACH. WILL ENDORSE TO MANUFACTURING CHIEF ENGINEER NURSE.
--- NOTE | 2019-11-07 19:30 | NUR ---
RECEIVED PT IN BED AWAKE, ALERT,ORIENTED X4. LUNG SOUNDS CLEAR. NO SOB ON ROOM AIR. BOWEL SOUNDS ACTIVE. RT HIP W/ DRESSING CDI. SHE HAS NO C/O PAIN AT THIS TIME. DIALYSIS NURSE HERE TO START ON PT'S PERITONEAL DIALYSIS. W/ HL TO LT WRIST. INTACT. CALL LIGHT W/IN REACH.
--- NOTE | 2019-11-07 20:10 | NUR ---
REPORT RECEIVED FROM ZOHREH ERICKSON. PATIENT WAS SEEN RESTING COMFORTABLY IN BED. NO DISTRESS NOTED. PERITONEAL DIALYSIS IN PLACE AT THIS TIME TO LLQ. BREATHING EVEN AND UNLABORED. NO SOB OR RESP DISTRESS NOTED. ON ROOM AIR. DENIES CHEST PAIN/PRESSURE. NO C/O PAIN. DRESSING NOTED TO RIGHT HIP, CDI. NO DRAINAGE NOTED. IV TO THE LW, SALINE LOCK. PATENT AND INTACT. NO REDNESS OR SWELLING NOTED. COMFORT AND SAFETY MEASURES IN PLACE. CALL LIGHT IS WITHIN REACH. BED IS LOCKED AND IN THE LOWEST POSITION. SIDE RAILS UP X2. WILL CONTINUE TO MONITOR.
[2019-11-07 21:45] VITALS: BP 116/57
--- NOTE | 2019-11-07 23:33 | NUR ---
RESTING IN BED WITH EYES CLOSED. NO DISTRESS NOTED. BREATHING EVEN AND UNLABORED ON ROOM AIR. NO SOB NOTED. NO S/S OF PAIN. PD IN PROGRESS. SAFETY MEASURES IN PLACE. CALL LIGHT IS WITHIN REACH. WILL CONTINUE TO MONITOR.
--- NOTE | 2019-11-08 03:18 | NUR ---
RESTING IN BED WITH EYES CLOSED. NO APPARENT DISTRESS NOTED. BREATHING EVEN AND UNLABORED. NO S/S OF PAIN NOTED. PD IN PROGRESS. SAFETY MEASURES IN PLACE. CALL LIGHT IS WITHIN REACH. WILL CONTINUE TO MONITOR.
--- NOTE | 2019-11-08 04:40 | NUR ---
C/O 8/10 BACK PAIN RADIATING TO RIGHT ARM. ONLY TYLENOL ORDERED; PATIENT STATES ISNT EFFECTIVE. NOTIFIED DR GRIJALVA.
[2019-11-08 05:21] VITALS: BP 109/62
--- NOTE | 2019-11-08 05:58 | NUR ---
C/O 8/10 BACK PAIN. GAVE NORCO ORDERED. MED EDUCATION GIVEN. PATIENT CLEANED AND LINENS CHANGED WITH FRANCES SANTOYO. REPOSITIONED TO COMFORT. DRESSING, CDI. NO DISTRESS NOTED. WILL CONTINUE TO MONITOR.
[2019-11-08 06:19] LABS: BASOPHIL % 0.4 % (0-2); PLATELET COUNT 218 x10^3mcL (130-400)
[2019-11-08 06:27] LABS: RED CELL DISTRIBUTION WIDTH 18.1 % (11.5-14.5)
[2019-11-08 06:35] LABS: CALCIUM 8.5 mg/dL (8.5-10.1); CARBON DIOXIDE 26.9 mmol/L (21-32)
[2019-11-08 06:40] LABS: CREATININE SERUM 6.6 mg/dL (0.6-1.0); POTASSIUM SERUM 2.8 mmol/L (3.5-5.1)
--- NOTE | 2019-11-08 06:45 | NUR ---
CRITICAL LABS K 2.8 AND CR 6.6; REPORTED TO DR GRIJALVA. SHE WILL INPUT ORDERS TO REPLACE K.
--- NOTE | 2019-11-08 06:58 | NUR ---
RESTED IN LONG INTERVALS THROUGHOUT THE NIGHT. NO ACUTE CHANGES NOTED. NO DISTRESS NOTED. BREATHING EVEN ON ROOM AIR. NO SOB NOTED. GAVE NORCO X1 FOR BACK PAIN. DENIES CP. RIGHT HIP DRESSING. CDI. PD STILL IN PROGRESS. SAFETY MEASURES IN PLACE. ALL NEEDS AND CONCERNS ADDRESSED. WILL ENDORSE CARE TO DAY SHIFT RN.
--- NOTE | 2019-11-08 07:30 | NUR ---
PERITONEAL DIALYSIS DONE. 700 ML OUT REPORTS BY DIALYSIS NURSE. NO DISTRESS NOTED. DENIES PAIN. ENDORSED CARE TO ZOHREH ROSA
--- NOTE | 2019-11-08 07:57 | NUR ---
RECEIVED PATIENT FROM ZOHREH SAGASTUME. PATIENT SEATED IN BED, EATING BREAKFAST TRAY. PERITONEAL DIALYSIS COMPLETE WITH 700 ML OUT. NO COMPLAINTS OF PAIN AT THIS TIME. PATIENT AWARE TO HAVE WOUND VAC PLACEMENT TODAY WELL NEED FOR STOOL CULTURE. CALL LIGHT IN REACH AT THIS TIME, WILL WAIT FOR HYDROPULPER OPERATOR FERNANDO TO COME SPEAK WITH PATIENT.
[2019-11-08 08:14] VITALS: BP 119/56
[2019-11-08] MEDS ORDERED: DIFLUCAN100 MG PO (10:21)
[2019-11-08 12:15] VITALS: BP 128/47
--- NOTE | 2019-11-08 12:17 | NUR ---
UPDATED PATIENT AND FAMILY ABOUT PLAN FOR TODAY, INCLUDING WOUND VAC PLACEMENT AT SNF INSTEAD OF INPATIENT. PATIENT AND FAMILY AGREE W PLAN AND WILL PLAN FOR TRANSFER ONCE DETAILS COMPLETE BY CASE MANAGEMENT.
[2019-11-08 12:59] LABS: CALCIUM 8.2 mg/dL (8.5-10.1); POTASSIUM SERUM 3.1 mmol/L (3.5-5.1)
[2019-11-08 13:00] LABS: CREATININE SERUM 6.8 mg/dL (0.6-1.0)
--- NOTE | 2019-11-08 14:39 | NUR ---
PHYSICAL THERAPY DAILY NOTES CO-SIGN All documentation done by the Polisher And Buffer for 11/08/19 has been reviewed. I agree with the documentation. Reviewed/Co-Signed by: Fay Valentino PT Documentation Done by:KRANTHI ROTH PTA
--- NOTE | 2019-11-08 14:43 | NUR ---
Initial Nutrition Assessment: 225T/B TRISHA TAYLOR MR Dx: back pain, hypotension, PNA, elevated troponin PMHx: DM, Atrial fibrillation, multiple strokes, CABG, and ESRD PSHx: CABG Labs: K 2.8L, BG 253H, BUN 29H, CREAT 6.6H, ALB 1.4L Meds: Colace, D50%, Diflucan, folic acid, Humulin, Mucinex, norco, Procrit, zofran Diet: Puree, renal (protein 40g) PO intake since admission: (11/07) dinner 40%, lunch 25%, (11/05) breakfast 90%, Ht: 154.94 cm (61") Wt: 63.5 kg (140#) BMI: 26.5 kg/m2 Bed scale: 140# IBW: 105# (48 kg) %IBW: 133 UBW: 140# Age: 69/F Food Allergies: NKFA Skin: s/p debridement decub ulcer on hip Brandyn: 12 Edema: none GI: Last BM: 11/06 Per H&P, Pt is a 69-year-old with PMH of DM, Atrial fibrillation, multiple strokes, CABG, and ESRD was brought in to the ED with c/o generalized weakness, productive cough, nausea for past [address] Note (11/08): Patient said that her appetite is improving. She said that she does not have N/V however certain foods like meat maker her gag. She said she is better able to tolerate puree diet. per progress note (11/08), pt is asleep comfortable s/p decubitus ulcer debridement with wound vac. Problem with: N/V/D/C: none at this time Problems with: Chewing: Swallowing: some swallowing difficulty but is able to tolerate puree Current appetite: fair Recent wt change: none %wt change: n/a Vitamin/Supplement use: B 12 Special diet at home: Regular Physical activity: sedentary Nutrition education given: NCM handout on Diabetes with CKD stages 1-4 was provided and explained to the patient. Food-drug interactions: none Education given: n/a Estimated Nutritional Needs Based on current body weight (63.5 kg) Energy: 1481-2269 kcal/day (30-35 kcal/kg for pressure ulcer) Protein: 76-89 g/day (1.2-1.4 g/kg for pressure ulcer) Fluid: 3048-2576 mL/day (1 mL/kcal) Nutrition Diagnosis: 1. Increased nutrient needs related to increased metabolic demands as evidenced by wounds. Intervention 1. Recommend continuing renal, puree diet. 2. Diet education provided. Monitor/Evaluate Goal: PO intake at least 75% of estimated needs Monitor: PO intake, Labs, GI function F/U in 7 days as low risk 11/15
--- NOTE | 2019-11-08 14:43 | NUR ---
1. Recommend continuing renal, puree diet. 2. Diet education provided.
[2019-11-08 16:18] VITALS: BP 96/57
[2019-11-08 16:24] VITALS: BP 96/57
--- NOTE | 2019-11-08 18:14 | NUR ---
PATIENT IN BED AT THIS TIME. PERITONEAL DIALYSIS TREATMENT RUNNING AT THIS TIME. PER CREW CHIEF SRINI, PATIENT WOUND VAC HAS NOT YET BEEN ARRANGED AND PATIENT NOT LIKELY TO BE TRANSFERRED TONIGHT. WILL ENDORSE TO ONCOMING NURSE. CALL LIGHT IN REACH.
--- NOTE | 2019-11-08 19:30 | NUR ---
RECEIVED REPORT FROM AM NURSE PETER, RN. PT LAYING DOWN IN BED. ON TELE#25 READING SR AT 82, DENIES CP/PRESSURE AT THIS TIME. PALPABLE PULSES TO ALL EXTREMETIES. NO EDEMA NOTED. LUNG SOUNDS DIMISHED. BREATHING EVEN AND UNLABORED ON RA. PT C/O PRODUCTIVE COUGH WITH CLEAR SPUTUM. NO ACUTE RESP DISTRESS NOTED. ABD SOFT AND NONDISTENDED. ACTIVE BS X4 QUAD, DENIES N/V/D. PT ANURINC, ON PD. RECEIVING PD AT THIS TIME. GENERALIZED WEAKNESS. BEDBOUND AT THIS TIME. WOUND TO RIGHT HIP COVERED WITH DRESSING. DRESSING CDI. DENIES ANY PAIN AT THIS TIME. IV TO LAC PATENT AND INTACT. SITE FREE FROM REDNESS AND SWELLING. PD SITE TO LLQ, SORROUNDING SKIN WITHOUT REDNESS OR SWELLING. AV SHUNT TO RFA NO WORKING AT THIS TIME. NO ACUTE DISTRESS NOTED, BED AT LOWEST SETTING. SIDE RAILS X2 UP. CALL LIGHT WIHTING REACH.WILL CONT TO MONITOR.
[2019-11-08 20:34] VITALS: BP 99/58
--- NOTE | 2019-11-09 00:09 | NUR ---
PT LAYING DOWN IN BED WITH EYES CLOSED, BREATHING EVEN AND UNLABORED ON RA. PT RECEIVING PD AT THIS TIME. TOLERATING WELL. NO S/S OF ACUTE DISTRESS NOTED. BED AT LOWEST SETTING. SIDE RAILS X2 UP. CALL LIGHT WITHING REACH. WILL CONT TO MONITOR.
[2019-11-09 06:07] VITALS: BP 125/71
--- NOTE | 2019-11-09 06:15 | NUR ---
PT SLEPT AT LONG INTERVALS THROUGHOUT THE NIGHT, BREATHING EVEN AND UNLABORED ON RA. NO SIGNIFICANT CHANGES DURING SHIFT. PD STILL IN PROGRESS AT THIS TIME. ALL NEEDS ASSESSED AND ATTENDED TO. PT DENIES ANY PAIN AT THIS TIME. BED AT LOWEST SETTING. SIDE RAILS X2 UP. CALL LIGHT WITHING REACH. WILL ENDORSE CARE TO AM NURSE.
--- NOTE | 2019-11-09 07:55 | NUR ---
RECEIVED PATIENT FROM RN JETHRO. PATIENT IN BED AT THIS TIME, NO COMPLAINTS. PERITONEAL DIALYSIS COMPLETE WITH 724 ML OUT PER HD NURSE CAITY. SPOKE WITH PATIENT ABOUT POSSIBLE TRANSFER TODAY AND NEED FOR DRESSING CHANGE TO R HIP. WILL AWAIT FOR DELIVERY MGR FERNANDO TO COME IN AND SPEAK WITH PATIENT ABOUT PLAN.
[2019-11-09 08:44] VITALS: BP 139/60
[2019-11-09 12:18] VITALS: BP 114/49
[2019-11-09 14:51] VITALS: BP 93/52
--- NOTE | 2019-11-09 16:08 | NUR ---
PATIENT IN BED AT THIS TIME, NO COMPLAINTS OF PAIN. R HIP WOUND DRESSING SOILED. WOUND CLEANSED WITH WOUND CLEANSER, HYDROCOLLOID DRESSING AND ABDs APPLIED. CALL LIGHT IN REACH AT THIS TIME.
[2019-11-09 16:35] VITALS: BP 104/52
--- NOTE | 2019-11-09 18:51 | NUR ---
PATIENT IN BED AT THIS TIME, PERITONEAL DIALYSIS TREATMENT RUNNING. NO FURTHER COMPLAINTS. WILL ENDORSE TO ONCOMING NURSE.
--- NOTE | 2019-11-09 19:35 | NUR ---
RECEIVED PT FROM DAY SHIFT RN. PT AAOX4 DENIES HOWARD/DIZZINESS. BREATHING EVEN AND UNLABORED ON RA WITH NO SOB NOTED. MED SURG PT, DENIES CHEST PAIN/PRESSURE. ABD SOFT/DIST, ACTIVE BOWEL SOUNDS. DENIES ABD PAIN/N/V. PT ANURIC. IV LAC PATENT, SL. AV SHUNT TO RFA. PD SITE LLQ. NO SIGNS OF ACUTE DISTRESS NOTED. CALL BUTTON WITHIN REACH. SAFETY PRECAUTIONS IN PLACE. WILL CONTINUE TO MONITOR.
[2019-11-09 19:52] VITALS: BP 95/42
--- NOTE | 2019-11-10 01:00 | NUR ---
ROUNDS MADE. PT RESTING. BREATHING EVEN AND UNLABORED, ON RA WITH NO SOB NOTED. CALL BUTTON WITHIN REACH. SAFETY PRECAUTIONS IN PLACE. WILL CONTINUE TO MONITOR.
--- NOTE | 2019-11-10 05:31 | NUR ---
PT SLEPT ON AND OFF THROUGHOUT THE NIGHT, WITH NO SIGNS OF ACUTE DISTRESS. IV PATENT, SL. PT MEDICATED PER EMAR. PD THROGUHOUT THE NIGHT. PT DENIES ANY PAIN/DISTRESS. PT ABLE TO TURN AND REPOSITION NEEDED. CALL BUTTON WITHIN REACH. SAFETY PRECATIONS IN PLACE. WILL CONTINUE TO MONITOR AND ENDORSE CARE TO DAY SHIFT RN.
[2019-11-10 06:00] VITALS: BP 103/48
[2019-11-10 06:27] LABS: BASOPHIL % 0.2 % (0-2); PLATELET COUNT 225 x10^3mcL (130-400)
[2019-11-10 06:56] LABS: CALCIUM 8.7 mg/dL (8.5-10.1); CARBON DIOXIDE 27.9 mmol/L (21-32); POTASSIUM SERUM 3.4 mmol/L (3.5-5.1)
[2019-11-10 06:57] LABS: CREATININE SERUM 6.7 mg/dL (0.6-1.0)
[2019-11-10 07:06] LABS: RED CELL DISTRIBUTION WIDTH 18.8 % (11.5-14.5)
--- NOTE | 2019-11-10 07:42 | NUR ---
PT AWAKE, DENIES ANY PAIN. NO SIGNS OF DISTRESS NOTED. ENDORSED CARE TO DAY SHIFT RN, ALL QUESTIONS ADDRESSED.
--- NOTE | 2019-11-10 07:58 | NUR ---
RECEIVED PATIENT FROM ZOHREH ARZOLA. PATIENT HAVING BREATHING TREATMENT NOW, STATES THAT SHE IS FEELING NAUSEOUS. PRN ZOFRAN GIVEN PRIOR AND WILL MONITOR FOR CONTINUAL NAUSEA. SPOKE WITH PATIENT ABOUT PLAN FOR TODAY AND PATIENT AGREES, WILL WAIT FOR UPDATES FROM CRYSTAL GROWING TECHNICIAN FERNANDO.
[2019-11-10 09:50] VITALS: BP 98/51
--- NOTE | 2019-11-10 10:23 | NUR ---
PATIENT IN BED AT THIS TIME. MILD COMPLAINTS OF NAUSEA BUT NOT VOMITTING. GIS PHYSICAL SCIENTIST FERNANDO IN TO SPEAK WITH PATIENT ABOUT STILL WAITING FOR WOUND VAC AUTHORIZATION FOR SNF. PATIENT IS AWARE.
[2019-11-10 12:49] VITALS: BP 141/61
--- NOTE | 2019-11-10 17:12 | NUR ---
PATIENT IN BED, CONTINUES TO HAVE MILD NAUSEA. DR CALDERON IN TO SEE PATIENT AND AWARE OF NAUSEA. PO REGLAN ADMINISTERED AND PATIENT STATES SHE FEELS BETTER BUT STILL HAS NAUSEA. WILL CONTINUE TO MONITOR FOR NAUSEA AND HYPOTENSION. CALL LIGHT IN REACH.
[2019-11-10 18:40] VITALS: BP 85/38
--- NOTE | 2019-11-10 19:09 | NUR ---
PATIENT IN BED AT THIS TIME. EATING DINNER TRAY SLOWLY AND TOLERATING. ENDORSED TO ZOHREH NARAYAN ABOUT PATIENT STATUS. CALL LIGHT IN REACH, ZOHREH NARAYAN MADE AWARE OF PATIENT HYPOTENSION.
[2019-11-10 19:20] VITALS: BP 88/52
--- NOTE | 2019-11-10 19:20 | NUR ---
RECEIVED PT FINISHING HER DINNER AND C/O STOMACHACHE AFTER EACH MEALS BUT VERBALIZED RELIEF WITH NEW REGLAN GIVEN.NO N/V NOTED AT THIS TIME.LATEST BP 88/52 MMHG,HR 82.DENIES LIGHTHEADEDNESS.O2 SAT @ 88% RA.STARTED ON O2 @ 1L/MIN ON AND OFF COUGHING NOTED TO WHITISH PHLEGM.DRESSING TO R HIP INTACT.PERITONEAL CATH TO LLQ ABDOMEN WITH DRESSING INTACT.DR. GALAVIZ MADE AWARE OF LATEST BP.WILL CONTINUE TO MONITOR.
--- NOTE | 2019-11-10 23:08 | NUR ---
DR. MEDINA IN TO SEE PTS WITH NEW ORDERS MADE AND WILL CARRY OUT
--- NOTE | 2019-11-10 23:54 | NUR ---
PERITONEAL DIALYSIS ONGOING.PT ASLEEP AT THIS TIME.IN NO DISTRESS.
[2019-11-11] VITALS (8 sets, daily range): BP systolic 87–106; BP diastolic 41–53
--- NOTE | 2019-11-11 02:10 | NUR ---
BP RECHECKED @ 106/53 MMHG,HR 67.O2 SAT @ 99%.PLACED ON ROOMAIR AT THIS TIME.ROBITUSSIN WITH CODEINE 5ML GIVEN.PERITONEAL DIALYSIS ONGOING AND TOLERATING WELL.WILL CONTINUE TO MONITOR.
--- NOTE | 2019-11-11 04:59 | NUR ---
PT SLEPT WELL.BREATHING EASY AND NON-LABORED.OCCASSIONAL COUGHING NOTED.ROBITUSSIN DM WITH CODEINE GIVEN X2 WITH GOOD RESULT.PERITONEAL DIALYSIS ONGOING AND TOLERATING WELL.NO ASE NOTED FROM DIFLUCAN IV.ALL NEEDS MET.WILL CONTINUE TO MONITOR.
--- NOTE | 2019-11-11 07:40 | NUR ---
RECEIVED PT IN BED. ASSESSED AND DOCUMENTED. DENIES PAIN THIS TIME. STABLE. NO SOB NOTED. SAFTEY PRECAUTIONS ARE IN PLACE. WILL MONITOR.
--- NOTE | 2019-11-11 09:30 | NUR ---
INFORMED PASTEURIZER HELPER FERNANDO ABOUT BP 89/44, PT ASYMPTAMATIC. ON PROAMATIN PO Q8HR. NO DIZZINESS THIS TIME. CHARGE NURSE AWARE. STABLE.
--- NOTE | 2019-11-11 13:30 | NUR ---
PT RESTING IN BED, STABLE. BP 95/48, PROAMATIN PO GIVEN ORDERED.
--- NOTE | 2019-11-11 14:28 | NUR ---
PHYSICAL THERAPY DAILY NOTES CO-SIGN All documentation done by the Automation Sales Manager for 11/11/19 has been reviewed. I agree with the documentation. Reviewed/Co-Signed by: Fay Valentino PT Documentation Done by:KRANTHI ROTH PTA
--- NOTE | 2019-11-11 17:30 | NUR ---
DRESSING CHANGE AND PICTURE TAKEN RT HIP WOUND. MILD YELLOW DRAINAGE IN THE DRESSING NOTED, WOUND IS DRY. NO PAIN. CLEANED WITH WOUND CLEANSER, COVERED WITH HYDROCOLLOID DRESSING AND FOAM DRESSING. PT TOLEARTED WELL.
--- NOTE | 2019-11-11 19:15 | NUR ---
REPORT RECEIVED FROM DAY SHIFT RN. PATIENT WAS SEEN RESTING COMFORTABLY IN BED EATING DINNER TRAY. NO DISTRESS NOTED. BREATHING EVEN AND UNLABORED ON ROOM AIR. NO SOB OR RESP DISTRESS NOTED. DENIES CHEST PAIN/PRESSURE. NO C/O PAIN. IV TO THE LAC. SALINE LOCK. PATENT AND INTACT. NO REDNESS OR SWELLING NOTED. PERITONEAL DIALYSIS IN PROGRESS. MACHINE IS BEEPING. NOTIFIED GALAN TO FIX MACHINE. RIGHT HIP WOUND W/ DRESSING IN PLACE, CDI. NO DRAINAGE NOTED. COMFORT AND SAFETY MEASURES IN PLACE. BED IS LOCKED AND IN THE LOWEST POSITION. SIDE RAILS UP X2. BED IS LOCKED AND IN THE LOWEST POSITION. SIDE RAILS UP X2. CALL LIGHT IS WITHIN REACH. WILL CONTINUE TO MONITOR.
--- NOTE | 2019-11-11 19:20 | NUR ---
PT RESTING IN BED COMFORTABLY. DENIES ANY PAIN. STABLE. GAVE REPORT TO ROLL MACHINE OPERATOR NURSE.
--- NOTE | 2019-11-11 21:28 | NUR ---
REQUESTING COUGH MEDICATION. PRN ROBITUSSIN W/ CODEINE ADMINISTERED PER ORDER. MED EDUCATION GIVEN. ASPIRATION PRECAUTIONS MAINTAINED. DIFFICULT FOR PATIENT TO SWALLOW. STATES FOOD GETS STUCK IN THROAT SOMETIMES. NO DISTRESS NOTED. BREATHING EVEN. PD IN PROGRESS. CALL LIGHT WITHIN REACH. WILL CONTINUE TO MONITOR.
--- NOTE | 2019-11-11 22:52 | NUR ---
CALLED REPORTING BACK PAIN 05/06. REPORTS TYLENOL DOES NOT WORK AND IS REQUESTING NORCO. NOTIFIED DR GRIJALVA. AWAITING ORDERS.
--- NOTE | 2019-11-12 00:47 | NUR ---
NORCO GIVEN FOR 8/10 BACK PAIN PER ORDER. MED EDUCATION GIVEN. NO DISTRESS NOTED. REPOSITIONED PATIENT ON TO RIGHT SIDE. BREATHING EVEN AND UNLABORED. PD IN PROGRESS. SAFETY MEASURES IN PLACE. CALL LIGHT IS WITHIN REACH. WILL CONTINUE TO MONITOR.
--- NOTE | 2019-11-12 03:30 | NUR ---
RESTING IN BED WITH EYES CLOSED. NO DISTRESS NOTED. NO S/S OF PAIN NOTED. BREATHING EVEN AND UNLABORED ON ROOM AIR. PD IN PROGRESS. SAFETY MEASURES IN PLACE. CALL LIGHT IS WITHIN REACH. WILL CONTINUE TO MONITOR
--- NOTE | 2019-11-12 05:00 | NUR ---
DR GRIJALVA MADE AWARE OF LOW BP AND MAP; 98/45 (62), HR 73. NO NEW ORDERS AT THIS TIME. PATIENT IS IN NO APPARRENT DISTRESS. DENIES DIZZINESS. WILL CONTINUE TO MONITOR.
[2019-11-12 05:22] VITALS: BP 98/45
--- NOTE | 2019-11-12 06:44 | NUR ---
RESTED IN LONG INTERVALS THROUGHOUT THE NIGHT. NO ACUTE CHANGES NOTED. PERITONEAL DIAYLSIS THROUGHOUT THE NIGHT. BREATHING EVEN AND UNLABORED ON ROOM AIR. NO SOB. NO DISTRESS NOTED. C/O BACK PAIN X1 AND MEDICATED WITH PRN NORCO WITH GOOD RELIEF. DENIES CHEST PAIN/PRESSURE. DRESSING TO RIGHT HIP, CDI. NO DRAINAGE NOTED. IV TO THE LAC, SL. PATENT AND INTACT. NO REDNESS NOTED. ALL NEEDS AND CONCERNS ADDRESSED. SAFETY MEASURES IN PLACE. CALL LIGHT IS WITHIN REACH. WILL ENDORSE CARE TO DAY SHIFT RN
[2019-11-12 07:57] VITALS: BP 123/43
[2019-11-12 08:18] LABS: BASOPHIL % 0.4 % (0-2); PLATELET COUNT 247 x10^3mcL (130-400)
[2019-11-12 08:26] LABS: RED CELL DISTRIBUTION WIDTH 18.7 % (11.5-14.5)
[2019-11-12 10:27] LABS: CALCIUM 9.1 mg/dL (8.5-10.1); CARBON DIOXIDE 26.9 mmol/L (21-32)
[2019-11-12 10:40] LABS: POTASSIUM SERUM 2.6 mmol/L (3.5-5.1)
--- NOTE | 2019-11-12 10:45 | NUR ---
INFORMED CAMELIA ABOUT K=2.6 AND SHE ORDERED KRIDER. SHE IS AWARE ABOUT BUN/CREAT=30/7 AND ALSO SHE IS AWARE ABOUT WBC=12.8. NO NEW ORDER RECEIVED THIS TIME. PT IS STABLE. DENIES PAIN THIS TIME.
--- NOTE | 2019-11-12 12:00 | NUR ---
P.T CAME AND SEEN THE PT, PUT PT UP IN THE CHAIR, PT IS STABLE. FAMILY AT BEDSIDE. CALL LIGHT IN REACH.
[2019-11-12 12:03] VITALS: BP 113/47
--- NOTE | 2019-11-12 12:21 | NUR ---
WOUND CARE RE-EVALUATION: S/P DEBRIDEMENT RIGHT TROCHANTER RIGHT TROCHANTER PRESSURE ULCER 12X6CM,DEPTH IS UTD WOUND BED IS MOIST 70% PINK GRANULATING TISSUE, 30% SCATTERED SOFT YELLOW SLOUGH, IRREGULAR WOUND SHAPE.CLARIBEL WOUND SKIN TO 3 O'CLOCK DIRECTION A DEBRIDED WOUND PU WITH 1.5X1CM WOUND BED WITH SCATTERED SOFT YELLOW SLOUGH, DEPTH UTD. PER PAPER COATING [employer] CONSULTANT VAC TO DELIVERY TO FACILITY. CHARGE NURSE INFORMED OF ABOVE INFORMATION.
--- NOTE | 2019-11-12 15:00 | NUR ---
PT RESTING IN BED COMFORTABLY, STABLE. DENIES ANY PAIN. KRIDER IS INFUSING.
[2019-11-12 16:32] VITALS: BP 111/49
--- NOTE | 2019-11-12 19:15 | NUR ---
PT RESTING IN BED COMFORTABLY, DRESSING CHANGED TO RT HIP. WOUND VACC JUST DELIVERED TO ROOM NOW, ENDORSED TO FUSING MACHINE FEEDER NURSE AND GAVE REPORT. PT IS STABLE. HD NURSE AT BEDSIDE FOR STARTING PD.
--- NOTE | 2019-11-12 20:00 | NUR ---
Awake and verbally responsive. No respiratory distress noted on room air. Denies pain. Denies n/v. Peritoneal dialysis in progress at this time. PD catheter intact. Right hip wound with dressing intact. On air mattress. Repositioned for comfort. Will cont. to monitor. Call light within reach.
[2019-11-12 21:56] VITALS: BP 90/48
[2019-11-13] VITALS (7 sets, daily range): BP systolic 80–116; BP diastolic 41–57
--- NOTE | 2019-11-13 04:30 | NUR ---
Afebrile. No significant change in condition noted. Pain controlled. Turned and repositioned q2h. Kept pressure off back, wound and bony prominences. Kept skin clean and dry after each incontinence. Heels floated. On air mattress. PD in progress.
--- NOTE | 2019-11-13 07:30 | NUR ---
RECEIVED PT FROM BOARDER MACHINE RN. Chinyere/RAMIREZ. MED SURG. DENIES CHEST PAIN/PRESSURE. RESPIRATIONS EQUAL AND UNLABORED ON RA. DENIES SOB. PT DENIES ANY PAIN AT THIS TIME. PERITONEAL DIALYSIS IN PLACE TO LLQ, NO REDNESS OR DRAINAGE NOTED. PT FOUND POSITIONED ON LEFT SIDE, WITH HEELS ELEVATED ON PILLOW, SCDS IN PLACE AT BEDSIDE. DRESSING TO RIGHT HIP WOUND, CDI. NO DRAINAGE NOTED, IV TO LAC SALINE LOCKED. NO REDNESS OR SWELLING NOTED. WILL CONTINUE TO MONITOR. CALL LIGHT IN REACH. BED IN LOWEST POSITION.
--- NOTE | 2019-11-13 08:58 | NUR ---
MIRANDA Ram at bedside, Wound Vac order obtained and apply to pt. pt. tolerate procedures well, all question answered. Primary RN notified wound vac and all supplies are ordered as home unit and need to discharged with pt.
--- NOTE | 2019-11-13 09:00 | NUR ---
COUNCILOR MISA AT BEDSIDE. WOUND VAC APPLIED TO RIGHT HIP. WOUND PHOTO TAKEN. PT TOLERATED WELL. WOUND VAC DRAINING. PER MISA RN DRESSING CHANGED SHOULD BE DONE Q72HR OR PRN FOR SOILING. WILL CONTINUE TO MONITOR. CALL LIGHT IN REACH. BED IN LOWEST POSITION.
[2019-11-13 09:20] LABS: CALCIUM 9.1 mg/dL (8.5-10.1); CARBON DIOXIDE 27.1 mmol/L (21-32); POTASSIUM SERUM 3.3 mmol/L (3.5-5.1)
[2019-11-13 09:29] LABS: CREATININE SERUM 7.1 mg/dL (0.6-1.0)
[2019-11-13 09:30] LABS: BASOPHIL % 0.1 % (0-2); PLATELET COUNT 238 x10^3mcL (130-400)
--- NOTE | 2019-11-13 09:35 | NUR ---
Speech Therapy follow up: Pt tolerated Puree diet and thin liquids given in small bite/ sip size. Instructed pt for safe swallow strategies. No diet advance trials due to pt's refusal. Pt indicated she is able to tolerate Puree texture well. Continue Puree diet and Thin liquids for now. No further ST services at this time indicated. RN, Jojo made aware.ST to re-screen/ re-eval as indicated. DC from ST services for now.
[2019-11-13 09:43] LABS: RED CELL DISTRIBUTION WIDTH 18.4 % (11.5-14.5)
--- NOTE | 2019-11-13 10:06 | NUR ---
Speech Therapy addendum notes: IT APPLICATIONS MANAGER seen when the RN giving medication due to pt c/o discomfort to swallow crushed medication. RN Jojo gave meedication with applesauce and followed by liquids. Intermittent episodes of cough noted . Pt refused thicken liquid trials.Pt prefers to continue Puree and thin liquids for now. Pt aware of safe swallow strategies and aspiration precautions. No furher ST indicated
--- NOTE | 2019-11-13 10:07 | NUR ---
PT SITTING UP IN BED. NO ACUTE RESP DISTRESS NOTED ON RA. PT C/O PAIN TO LEFT LOWER BACK 8/10 SHARP. MEDICATED PER EMAR. PT INSISTING ON TAKING PILLS WHOLE, ENCOURAGED PT TO CRUSH MEDS, SINCE PT C/O DIFFICULTY SWALLOWING. PT ATTEMPTED TO SWALLOW ONE PILL BUT STATES UNABLE TO SWALLOW PILL. PT ALLOWED MEDICATION TO BE GIVEN CRUSHED WITH APPLESAUCE, PT TOLERATED WELL SMALL BITS. SPEECH THERAPIST EVELIN AT BEDSIDE ENCOURAGED PT TO BE ON THICKENED LIQUIDS. PT REFUSING THICKENED LIQUIDS. CAMELIA JEAN MADE AWARE. WILL CONTINUE TO MONITOR. CALL LIGHT IN REACH. BED IN LOWEST POSITION.
--- NOTE | 2019-11-13 11:37 | NUR ---
PT SITTING UP IN BED. PT STATES PAIN TO BACK HAS IMPROVED. BLOOD SUGAR CHECKED WAS 122. NO COVERAGE NEEDED. AND DAUGHTER AT BEDSIDE, GIVEN UPDATED ON POC. OFFERED TO GIVE PT PO MEDS. PT REFUSING AT THIS TIME. PT ASKING TO HAVE MEDICATIONS GIVEN IN A BIT. WILL CONTINUE TO MONITOR. CALL LIGHT IN REACH. BED IN LOWEST POSITION.
--- NOTE | 2019-11-13 12:10 | NUR ---
PT SITTING UP IN BED. FAMILY AT BEDSIDE. PT GIVEN PO MEDS CRUSHED IN APPLESAUCE, TOLERATED WELL. PT GIVEN POTASSIUM MIXED WITH APPLE JUICE, ENCOURAGED PT TO TAKE WITH SMALL SIPS. PT VERBALIZED UNDERSTANDING. PT STILL NOT WANTED TO HAVE THICKENED LIQUIDS. WILL CONTINUE TO MONITOR. CALL LIGHT IN REACH. BED IN LOWEST POSITION.
--- NOTE | 2019-11-13 15:50 | NUR ---
PT SITTING UP IN BED. DROWSY BUT AROUSABLE. PT DENIES ANY PAIN AT THIS TIME. GIVEN PO MEDS CRUSHED WITH APPLE SAUCE, TOLERATED WELL. IV TO LH FLUSHED WELL. NO REDNESS OR SWELLING NOTED. IV ANTIBIOTICS INFUSING ORDERED. PT REPOSITIONED ON LEFT SIDE, TOLERATED WELL. WILL CONTINUE TO MONITOR. CALL LIGHT IN REACH. BED IN LOWEST POSITION.
--- NOTE | 2019-11-13 19:15 | NUR ---
RECEIVED REPORT FROM DAY SHIFT NURSE, MERT BRUNER. PT IS AAOX4. SPEECH IS CLEAR. DENIES HOWARD. M/S PT. DENIES CP. PULSES ARE PALPABLE. NO EDEMA NOTED. BREATHING IS EVEN AND UNLABORED ON RA. LUNG SOUNDS CTA, DIMINSHED JOSHUA. DENIES SOB. NO RESP DISTRESS NOTED. ABD IS SOFT AND NONDISTENDED. BS ACTIVE. DENIES N/V/D. ANURIC. PD QNIGHT. LLQ CATH. OLD AV SHUNT TO RA, NONFUNCTIONING. GENREALIZED WEAKNESS. BED BOUND BASELINE. AIR MATTRESS APPLIED. WILL REPOSITION PT Q2H. WOUND VAC PLACED TO R HIP, DRSG CDI. DENIES ANY PAIN AT THIS TIME. IV TO LFA DRY AND INTACT. NO ERYTHEMA NOTED. SL. BED IN LOWEST POSITION. CALL LIGHT WITHIN REACH. WILL CONTINUE TO MONITOR.
--- NOTE | 2019-11-13 20:26 | NUR ---
DIALYSIS NURSE AT BEDSIDE.
[2019-11-13 20:51] LABS: BASOPHIL % 0.1 % (0-2); PLATELET COUNT 233 x10^3mcL (130-400)
[2019-11-13 20:53] LABS: CALCIUM 8.9 mg/dL (8.5-10.1); CARBON DIOXIDE 28.5 mmol/L (21-32); POTASSIUM SERUM 4.2 mmol/L (3.5-5.1)
[2019-11-13 20:55] LABS: CREATININE SERUM 7.5 mg/dL (0.6-1.0); RED CELL DISTRIBUTION WIDTH 18.3 % (11.5-14.5)
--- NOTE | 2019-11-13 21:15 | NUR ---
ROUTINE MEDICATIONS WERE CRUSHED AND GIVEN, TOLERATED WELL. NO ACUTE DISTRESS NOTED. BREATHING IS EVEN AND UNLABORED ON RA. NO SIGNS OF RESP. DISTRESS. DENIES SOB. RT AT BEDSIDE GIVING TX. BED IN LOWEST POSITION. CALL LIGHT WITHIN REACH. WILL CONTINUE TO MONITOR.
--- NOTE | 2019-11-13 21:40 | NUR ---
PT C/O 06/05 BACK PAIN. MEDICATED WITH NORCO PRN PER MAR ORDER. WILL REASSESS AND CHECK EFFECTIVENESS.
--- NOTE | 2019-11-13 22:18 | NUR ---
DR GRIJALVA AWARE OF PTS BP 80/41 (54). NO ORDERS GIVEN.
--- NOTE | 2019-11-13 22:20 | NUR ---
PLACED PT IN [place].
--- NOTE | 2019-11-13 22:53 | NUR ---
RECHECKED PT BP AFTER PLACING PT IN [place]. 98/55 (65). WILL CONTINUE TO MONITOR.
[2019-11-14] VITALS (7 sets, daily range): BP systolic 90–96; BP diastolic 42–65
--- NOTE | 2019-11-14 04:15 | NUR ---
PT IS RESTING COMFORTABLY, REPOSITIONING SELF. DENIES ANY PAIN OR SOB AT THIS TIME. BED IN LOWEST POSITION. CALL LIGHT WITHIN REACH. WILL CONTINUE TO MONITOR.
[2019-11-14 06:39] LABS: BASOPHIL % 0.3 % (0-2); PLATELET COUNT 224 x10^3mcL (130-400)
[2019-11-14 06:45] LABS: CALCIUM 8.9 mg/dL (8.5-10.1); CARBON DIOXIDE 27.2 mmol/L (21-32); MAGNESIUM 1.7 mg/dL (1.8-2.4); POTASSIUM SERUM 3.7 mmol/L (3.5-5.1)
--- NOTE | 2019-11-14 06:45 | NUR ---
PT SLEPT IN SHORT INTERVALS THROUGHOUT THE NIGHT AND COMPLIED WITH NURSING CARE WITH NO ACUTE EVENTS OCCURRING DURING THE SHIFT. COMFORT AND SAFETY MEASURES MAINTAINED. ALL NEEDS ASSESSED AND ATTENDED TO. WILL CONTINUE TO MONITOR AND ENDORSE CARE TO DAY SHIFT NURSE.
[2019-11-14 06:53] LABS: CREATININE SERUM 6.9 mg/dL (0.6-1.0)
--- NOTE | 2019-11-14 08:07 | NUR ---
RECEIVED HAND OFF REPORT FROM NIGHT NURSE. PATIENT RESTING AT THIS TIME WITH EYES CLOSED, BREATHING REGULAR. NO DISTRESS NOTED. ON ROOM AIR. PD ATTACHED AND WAS RUNNING THROUGH THE NIGHT. DIALYSIS NURE TO COME AND DISCONNECT PATIENT. CALL LIGHT WITHIN REACH OF PATIENT. WILL CONTINUE TO MONITOR
--- NOTE | 2019-11-14 08:26 | NUR ---
CAMELIA JEAN ROUNDED ON PATIENT, UPDATED ON PLAN OF CARE. INFORMED PATIENT DUE TO WBC TREND PATIENT WILL NEED SNF/[facility] AND NOT HOME HEALTH. PD NO LONGER IN PRGRESS
--- NOTE | 2019-11-14 10:57 | NUR ---
ADMINSITERED MEDIATIONS PER JAN. CRUSHED MEDS THAT COULD BE NO COUGHING OR SWALLOWINGDIFFICULTY. FAMILY NOW AT BEDSIDE. CAMELIA CHANGED PO ANTIBIOTICS TO IV
--- NOTE | 2019-11-14 11:48 | NUR ---
SCOTTY FROM PT WAS NOT ABLE TO GET PATIENT OUT OF BED. REPORTED THAT PATIENT BLOOD PRESSURE WAS LOW WHEN HE ATTEMPTED TO SIT HER UP AND THAT SHE DESATURATED WHEN MOVING. REASSESSED PATIENT BLOOD PRESSURE WAS IN 90S SYSTOLIC AND O2 SAT 93. PATIENT NOT COMPLAINING OF DIZINESS OR LIGHT HEADEDNESS, WILL CONTINUE TO MONITOR
--- NOTE | 2019-11-14 16:30 | NUR ---
PATIENT RESTING AT THIS TIME. NO NEEDS IDENITFIED CALL LIGHT WITHIN REACH
--- NOTE | 2019-11-14 18:00 | NUR ---
DIALYSIS NURSE AT BEDSIDE SETTING UP PD. LABS PROVIDED
--- NOTE | 2019-11-15 02:39 | NUR ---
HEAD TO TOE ASSESSMENT COMPLETED THIS SHIFT, PT DENIES ANY PAIN OR DISCOMFORT AT THIS TIME, WILL CONTINUE TO MONITOR FOR SAFETY. NO PROBLEMS REPORTED THIS SHIFT. PT'S BLOOD SUGAR WAS 188, 2 UNITS OF REGULAR INSULIN GIVEN SUBQ PER SLIDING SCALE. PERITONEAL DYALISIS IN SESSION NOW, NAD.
[2019-11-15 05:50] VITALS: BP 91/37
[2019-11-15 06:31] LABS: BASOPHIL % 0.2 % (0-2); PLATELET COUNT 209 x10^3mcL (130-400)
[2019-11-15 06:55] LABS: CALCIUM 8.7 mg/dL (8.5-10.1); CARBON DIOXIDE 27.7 mmol/L (21-32); POTASSIUM SERUM 3.2 mmol/L (3.5-5.1)
[2019-11-15 07:01] LABS: RED CELL DISTRIBUTION WIDTH 18.5 % (11.5-14.5)
[2019-11-15 07:04] LABS: CREATININE SERUM 6.8 mg/dL (0.6-1.0)
--- NOTE | 2019-11-15 07:50 | NUR ---
RECEIVED PATIENT RESTING IN BED, NO ACUTE DISTRESS NOTED. PATIENT AAOX4, DENIES HEADAHCE. LUNG SOUND DIMINISHED TO RIGHT BASE, AND CRACKLE NOTED TO JOSHUA LOBES, ON 2L NC. EDUCATED PATIENT ON THE IMPORTANCE OF USING INCENTIVE SPIROMETER, PATIENT VERBALIZED UNDERSTANDING. RFA AV SHUNT NOTED; NON FUNCTIONING. PATIENT RECIEVES PD DAILY OUTPUT WAS 740ML. PATIENT IS ANURIC. PATIENT IS BEDBOUND, AIR MATRESS IN PLACE, WILL REPOSITION Q2HR, OR NEEDED. WOUND VAC NOTED TO RIGHT HIP; LAST DRESSING CHANGE WAS 11/14/19. IV TO LFA CDI&PATENT, NO S/S OF INFILTRATION. CALL LIGHT WITHIN REACH, BED IN LOW POSITON, WILL CONTINUE TO MONITOR FOR CHANGES.
[2019-11-15 08:34] VITALS: BP 93/49
--- NOTE | 2019-11-15 09:02 | NUR ---
RT AT BEDSIDE FOR BREATHING TREATMENT.
--- NOTE | 2019-11-15 09:40 | NUR ---
DR. RAMOS AT BEDSIDE.
--- NOTE | 2019-11-15 11:11 | NUR ---
PATIENT WAS C/O OF BACK PAIN 04/05, REPOSITIONED PATIENT FOR COMFORT, AND MEDICATED PATIENT WITH NORCO PO PER PROTOCOL (SEE EMAR). WILL CONTINUE TO MONITOR AND MANAGE PAIN. CALL LIGHT WITHIN REACH, BED IN LOW POSITON FOR SAFETY PRECAUTION.
--- NOTE | 2019-11-15 12:15 | NUR ---
1. Recommend continuing renal, puree diet. 2. Recommend ONS Nepro BID. This will provide additional of 850 kcal and 38g protein. This will aid in meeting >75% of estimated calorie and protein needs of the patient. Paged THERAPIST PHYS Yo, waiting for call back.
--- NOTE | 2019-11-15 12:15 | NUR ---
Follow-up Nutrition Assessment: 225T/B TRISHA TAYLOR LR Dx: back pain, hypotension, PNA, elevated troponin PMHx: DM, Atrial fibrillation, multiple strokes, CABG, and ESRD Labs: K 2.8L, BG 253H, BUN 29H, CREAT 6.6H, ALB 1.4L Meds: Colace, D50%, Diflucan, folic acid, Humulin, Mucinex, norco, Procrit, zofran Diet: Puree, renal (protein 40g) PO Intake: (11/14) breakfast 60%, (11/13) dinner, breakfast 75%, lunch 50% Weights: (11/08) 63.5 kg, (11/15) 63 kg I/Os: (11/14) 1260/415 (845) Skin: sheeba colored skin Brandyn: 15 Edema: none GI: Last BM: 11/13 Note (11/15): Patient said that she ate some of her breakfast this morning. She said that she does not have N/V/D/C at this time. She said she would like to eat meats other than chicken. Patient is s/p decubitus ulcer debridement with wound vac. Patient is on peritoneal dialysis and awaiting SNF placement. Estimated Nutritional Needs Based on current body weight (63.5 kg) Energy: 4331-1619 kcal/day (30-35 kcal/kg for pressure ulcer) Protein: 76-89 g/day (1.2-1.4 g/kg for pressure ulcer) Fluid: 9634-5116 mL/day (1 mL/kcal) Nutrition Diagnosis: 1. Increased nutrient needs related to increased metabolic demands as evidenced by wounds. (ongoing) Intervention: 1. Recommend continuing renal, puree diet. 2. Recommend ONS Nepro BID. This will provide additional of 850 kcal and 38g protein. This will aid in meeting >75% of estimated calorie and protein needs of the patient. Paged MIRANDA Ram, waiting for call back. Monitor/Evaluate: Goal: Have pt meet at least 75% of estimated needs Monitor: PO intake, Labs, GI function F/U in 3-5 days as moderate risk 11/18-
[2019-11-15 12:35] VITALS: BP 91/41
--- NOTE | 2019-11-15 15:00 | NUR ---
DIALYSIS NURSE AT BEDSIDE.
[2019-11-15 16:29] VITALS: BP 93/44
--- NOTE | 2019-11-15 17:00 | NUR ---
PO MEDICATIONS GIVEN, PATIENT TOLERATED WELL. IV ABXS GIVEN. PATIENT DENIES PAIN AT THIS TIME. NO ACUTE DISTRESS NOTED. PATIENT APPEARS CONGESTED, REINFORCED TEACHING TO DEEP BREATH AND COUGH. ENCOURAGE PATIENT TO USE IS, PATIENT VERBALIZED UNDERSTANDING. PATIENT ON 2L NC. IV TO LFA CDI&PATENT, NO S/S OF INFILTRATION. CALL LIGHT WITHIN REACH, BED IN LOW POSITON, WILL CONTINUE TO MONITOR AND ENDORSE REPORT.
--- NOTE | 2019-11-15 19:20 | NUR ---
RECEIVED REPORT FROM ALONZO BRUNER. PT IS AAOX4. PT DENIES HEADACHE OR DIZZINESS AT THIS TIME. PT IS FORGETFUL AT TIMES. PT IS DROWSY AND FATIGUE. PT IS MED-SURG AND DENIES CHEST PAIN OR PRESSURE AT THIS TIME. PT PULSES ARE PALPABLE AND CAP REFILL <3 SEC. PT LUNG SOUNDS ARE DIMINISHED/CRACKLES ON 2LPM NC AT THIS TIME. PT DENIES SOB OR RESPIRATORY DISTRESS AT THIS TIME. PT ABD SOFT AND NONDISTENDED. PT DENIES N/V/D AT THIS TIME. PT HAS POOR APPETITE. PT IS ANURIC. PT HAS PD DAILY. PT HAS RFA AV SHUNT THAT IS NONFUNCTIONING AT THIS TIME. PT IS BEDBOUND WITH GENERALIZED WEAKNESS. PT IS REPOSITIONED Q2H BY NURSING CARE. PT IS ON WAFFLE MATTRESS AT THIS TIME. PT HAS WOUND VAC TO RIGHT HIP, DRESSING CDI. DRESSING CHANGED ON 11/14/19. PT HAS LFA IV THAT IS PATENT AND INTACT. CALL LIGHT WITHIN REACH. BED IN LOWEST POSITION. SIDE RAILS X2 UP. WILL CONTINUE TO MONITOR.
[2019-11-15 20:36] VITALS: BP 89/40
--- NOTE | 2019-11-15 23:00 | NUR ---
PT C/O HARD TIME BREATHING. RT MADE AWARE AND WILL REPORT TO BEDSIDE. PT V/S TAKEN. BP 118/54, HR 75, O2 SAT 87% ON SIMPLE FACE MASK. RT ASKED FOR NONREBREATHER MASK AND FOR NCT 14F. RT TRIED TO SUCTION PT BACK OF THROAT AND WAS ABLE TO SEE THAT PT HAD ASPIRATED ON HER CRUSHED MEDS WITH PUDDING. PT IS BREATHING BETTER AND DR. GRIJALVA MADE AWARE. PER DR. GRIJALVA, PT WILL BE NPO AND NO PO MEDS AT THIS TIME. WILL CONTINUE TO MONITOR.
--- NOTE | 2019-11-15 23:32 | NUR ---
PATIENT FOUND ON ROOM AIR WITH SPO2 OF 80%. HHN TX GIVEN AND PLACED ON 100% FIO2 VIA NRB. PATIENT NASOTRACHEAL SUCTIONED. MODERATE AMOUNT OF PALE BROWN SECRETIONS SUCTIONED. RN RHONDA AND DR. GRIJALVA AWARE. SPO2 INCREASED TO 91-93% POST NTS. WILL CONTINUE TO MONITOR.
[2019-11-16] VITALS (9 sets, daily range): BP systolic 78–98; BP diastolic 41–50
--- NOTE | 2019-11-16 00:15 | NUR ---
REASSESSED PT O2 SAT. CURRENTLY O2 SAT IS 96% ON NONREBREATHER MASK. WILL CONTINUE TO MONITOR.
--- NOTE | 2019-11-16 00:38 | NUR ---
PER RT, PT IS ON NC 5LPM AND O2 SAT IS 93%. WILL CONTINUE TO MONITOR.
--- NOTE | 2019-11-16 01:00 | NUR ---
PER DR. GRIJALVA, PT WILL BE NPO, NO PO MEDS DUE TO ASPIRATION PRECAUTIONS. WILL CONTINUE TO MONITOR.
--- NOTE | 2019-11-16 01:25 | NUR ---
PT ASKED TO BE REPOSITIONED. PT REPOSITIONED TO RIGHT SIDE. NO ACUTE DISTRESS NOTED AT THIS TIME. CALL LIGHT WITHIN REACH. BED IN LOWEST POSITION. SIDE RAILS X2 UP. WILL CONTINUE TO MONITOR.
--- NOTE | 2019-11-16 02:54 | NUR ---
PT SLEEPING, BUT EASILY AROUSABLE. PT BREATHING EVEN AND UNLABORED. NO ACUTE DISTRESS NOTED AT THIS TIME. CALL LIGHT WITHIN REACH. BED IN LOWEST POSITION. SIDE RAILS X2 UP. WILL CONTINUE TO MONITOR.
--- NOTE | 2019-11-16 03:32 | NUR ---
PT SLEEPING, BUT EASILY AROUSABLE. PT DENIES ANY PAIN OR DISCOMFORT AT THIS TIME. PT STATES HER BREATHING IS "BETTER". REINFORMED PT THAT SHE NEEDS TO TAKE DEEP BREATHS. PT AGREED TO TAKE DEEPER BREATHS. CALL LIGHT WITHIN REACH. BED IN LOWEST POSITION. SIDE RAILS X2 UP. WILL CONTINUE TO MONITOR.
--- NOTE | 2019-11-16 05:04 | NUR ---
PT SLEPT INTERMITTENTLY THROUGHOUT MOST OF THE NIGHT. PT COMPLIED WITH NURSING CARE THROUGHOUT THE SHIFT. PT O2 SAT 93-94% ON NC 5LPM. NO RESPIRATORY DISTRESS NOTED. SAFETY AND COMFORT MEASURES MAINTAINED DURING THE SHIFT. ALL NEEDS AND CONCERNS ADDRESSED. CALL LIGHT WITHIN REACH. BED IN LOWEST POSITION. SIDE RAILS X2 UP. WILL CONTINUE TO MONITOR. WILL ENDORSE TO DAY SHIFT NURSE.
[2019-11-16 06:05] LABS: BASOPHIL % 0.1 % (0-2); PLATELET COUNT 187 x10^3mcL (130-400)
[2019-11-16 07:00] LABS: CALCIUM 8.8 mg/dL (8.5-10.1); CARBON DIOXIDE 27.2 mmol/L (21-32); POTASSIUM SERUM 3.6 mmol/L (3.5-5.1)
[2019-11-16 07:02] LABS: CREATININE SERUM 6.6 mg/dL (0.6-1.0)
--- NOTE | 2019-11-16 07:30 | NUR ---
RECEIVED PT. IN BED A/A/O X3. PT. APPEARS DROWSY. MILD SOB NOTED WITH EXERTION. PT. IS ON O2 AT 5L VIA NC. NO N/V NOTED. PT. DENIES ANY PAIN AT THE PRESENT TIME. IV SITE NOTED TO L FA. PT. IS ON AIR MATTRESS. WOUND VAC NOTED TO R HIP. MINIMAL AMT. OF SEROSANGUINEOUS FLUID NOTED IN WOUND VAC COLLECTION CHAMBER. HEMODIALYSIS ACCESS NOTED TO LLQ OF ABDOMEN. AV SHUNT (NON-FUNCTIONING) NOTED TO R FA. SCD TO BLE MAINTAINED. BED IN LOW POS., CALL LIGHT WITHIN REACH. SIDE RAILS UP X3.
--- NOTE | 2019-11-16 09:00 | NUR ---
B/P= 88/44 (58), P= 75. REPORTED THE ABOVE B/P AND MAP TO THE NURSE PRACTITIONER CAMELIA QUINTANILLA. ORDER TO GIVE 500 CC NS IV BOLUS X1 RECEIVED.
--- NOTE | 2019-11-16 09:10 | NUR ---
NS 500 CC IV BOLUS STARTED.
--- NOTE | 2019-11-16 09:40 | NUR ---
NS 500 CC IV BOLUS COMPLETED. B/P= 95/50 (65), P= 80.
--- NOTE | 2019-11-16 10:04 | NUR ---
PHYSICAL THERAPY NOTE PATIENT HAS DECREASE IN OVERALL O2 SAT AND DECREASE IN BP 88/44. NURSING REQUEST TO WITHHOLD TREATMENT TODAY. WILL FOLLOW UP ON NEXT VISIT WITH NURSING.
--- NOTE | 2019-11-16 12:55 | NUR ---
B/P= 87/41 (56), P= 75. PT. IS ASYMPTOMATIC. THE ABOVE B/P AND MAP WERE REPORTED TO THE NURSE PRACTITIONER CAMELIA QUINTANILLA. NEW ORDERS RECEIVED.
[2019-11-16 13:39] LABS: BASOPHIL % 0.2 % (0-2); PLATELET COUNT 168 x10^3mcL (130-400)
[2019-11-16 13:40] LABS: RED CELL DISTRIBUTION WIDTH 18.8 % (11.5-14.5)
--- NOTE | 2019-11-16 14:35 | NUR ---
PER CAMELIA QUINTANILLA (NURSE PRACTITIONER), PT. NEEDS TO BE TRANSFERRED TO ICU DUE TO LOW B/P AND HYPOXIA (P O2= 53.8 IN R.A. FROM ABG RESULTS).
--- NOTE | 2019-11-16 14:45 | NUR ---
CALLED AND GAVE REPORT TO IVONE LARA) IN ICU DEPT. ; ALL QUESTIONS AND CONCERNS ADDRESSED.
--- NOTE | 2019-11-16 14:52 | NUR ---
PT. IS BEING TRANSFERRED TO ICU DEPT. WITH ALL BELONGINGS. FAMILY AT BEDSIDE AT TIME OF TRANSFER.
--- NOTE | 2019-11-16 15:00 | NUR ---
RECD PT TRANSFER FROM [facility], AAOX2. STATES FEELING WEAK, ABLE TO FOLLOW SIMPLE COMMANDS. PER REPORT FROM [facility] RN, PT'S SBP IS ON 80'S DESPITE RECEIVING NSS BOLUS AND ALBUMIN. O2 AT 5L/NC IN USE. PERITONEAL DIALYSIS ACCESS ON THE LLQ ABD IS INTACT WITH CDI DSG. WOUND ON THE RT HIP DRESSED AND WITH ATTACHED WOUND VAC. VS ARE BP 84/41 (56), HR 78, RR21, 100% O2SAT WITH 5L/NC, TEMP 98.4. NSG ASSESSMENT DONE AND DOCUMENTED. PT KEPT COMFORTABLE.
--- NOTE | 2019-11-16 15:15 | NUR ---
DR RAMOS AT BEDSIDE TO ASSESS PATIENT. PATIENT UPDATE PROVIDED TO FAMILY BEDSIDE. PER DR RAMOS, BOLUS PATIENT WITH 500 ML NS AND REPEAT LACTIC ACID LAB FOLLOWING BOLUS. WILL CARRY OUT ORDER.
--- NOTE | 2019-11-16 15:30 | NUR ---
FAMILY MEMBERS X2 CONVERSING TO PT. WILL CONTINUE TO MONITOR STATUS.
--- NOTE | 2019-11-16 15:30 | NUR ---
BOLUS OF 500 NS INITIATED AT THIS TIME.
--- NOTE | 2019-11-16 18:39 | NUR ---
LATEST BP IS 93/45 (60), HR 80, RR 19, O2SAT 100. PT REMAIN ALERT, OX2, VERBALLY RESPONSIVE WITH SIMPLE ANSWERS AND FOLLOW SIMPLE COMMANDS. NOT IN ANY DISTRESS. LACTIC ACID BEING DRAWN. IN THE ROOM. WILL CONTINUE TO MONITOR STATUS.
--- NOTE | 2019-11-16 19:05 | NUR ---
REPORT RECIEVED FROM CLINICAL SUPPORT TECH. NURSING UPDATES. POC DISCUSSED. SEE SHIFT ASSESSMENT FOR ASSESSMENT.
--- NOTE | 2019-11-16 20:00 | NUR ---
PERITENEAL DIAYLSIS STARTED BY ZOHREH CAROLINA. WILL CONT TO MONITOR. NO S/S OF DISTRESS
--- NOTE | 2019-11-16 22:44 | NUR ---
PT W/ SPUTUM NOTED GREENISH MUÑOZ COLORED. SCANT SUCTIONED W/ PT ASSISTANCE. PT NOTED OF BEING ABLE TO BREATH EASIER. CALL [place] WITHIN REACH IF MORE ASSISTANCE NEEDED. WILL CONT TO MONITOR.
--- NOTE | 2019-11-16 23:31 | NUR ---
SWALLOW EVAL DONE. PT ABLE TO TOLERATE SMALL AMOUNTS OF PO. NO S/S OF ASPIRATION. PT SUCTIONED W/ YANKER AND TOLERATED PO WATER AND APPLE SAUCE. WILL CONT TO MONITOR.
[2019-11-17] VITALS (8 sets, daily range): BP systolic 81–110; BP diastolic 44–53
--- NOTE | 2019-11-17 00:44 | NUR ---
PT BS CHECK FOR PROPHLAXIS. BS 154. WILL CONT TO MONITOR. DURING PD.
--- NOTE | 2019-11-17 02:51 | NUR ---
PT RESTING CALMLY IN BED. NO ACUTE CHANGES. WILL CONT TO MONITOR.
--- NOTE | 2019-11-17 04:00 | NUR ---
PT RESTING CALMLY IN BED. NO ACUTE CHANGES.
[2019-11-17 05:24] LABS: BASOPHIL % 0.1 % (0-2); PLATELET COUNT 178 x10^3mcL (130-400)
[2019-11-17 05:30] LABS: RED CELL DISTRIBUTION WIDTH 19.4 % (11.5-14.5)
[2019-11-17 05:34] LABS: CALCIUM 8.5 mg/dL (8.5-10.1); CARBON DIOXIDE 28.5 mmol/L (21-32); POTASSIUM SERUM 3.6 mmol/L (3.5-5.1)
[2019-11-17 05:43] LABS: CREATININE SERUM 6.2 mg/dL (0.6-1.0)
--- NOTE | 2019-11-17 06:14 | NUR ---
SWALLOW EVAL DONE. PT FAILED. PT POCKETING AND CHOKING W/ SMALL AMOUNTS OF FLUID WATER. MEDS HELD. PT DENIES DIZZINESS/LIGHTHEADEDNESS.
--- NOTE | 2019-11-17 07:00 | NUR ---
RECEIVED REPORT FROM ANNABELLA BRUNER. PATIENT RESTING COMFORTABLY IN BED. IV TO LT WRIST IS PATENT AND INTACT. NO REDNESS OR PAIN. PT ON O2 2L NC. NO C/O SOB AND NO DISTRESS NOTED. SCDS IN PLACE. AV SHUNT NOTED TO RFA WITH THRILL NOTED. PERITONEAL DIALYSIS CATHETER TO LLQ WITH 670ML NOTED OUTPUT. WOUND VAC TO RT HIP IS DRAINING MINIMAL SEROSANGUINEOUS FLUID. ALL QUESTIONS AND CONCERNS ADDRESSED.
--- NOTE | 2019-11-17 07:19 | NUR ---
REPORT GIVEN TO ZOHREH KANG. RELIEVED OF NURSING CARE.
--- NOTE | 2019-11-17 09:00 | NUR ---
DR RAMOS PRESENT AT BEDSIDE TO DISCUSS PT POC. UPDATED ON PT CURRENT STATUS. ALL QUESTIONS AND CONCERNS ADDRESSED. NEW ORDERS TO BE ENTERED AT THIS TIME.
--- NOTE | 2019-11-17 10:04 | NUR ---
NGT PLACED TO LT NARE PLACEMENT CHECKED AND KUB ORDERED. RT AT BEDSIDE FOR SUCTIONING. PT O2 INCREASED TO 4L NC. PT TOLERATED IT WELL. O2 SAT IS 95%. WILL CONTINUE TO MONITOR.
--- NOTE | 2019-11-17 10:33 | NUR ---
RADIOLOGY IN TO OBTAIN KUB TO CONFIRM NGT PLACEMENT. AWAITING RESULTS.
--- NOTE | 2019-11-17 12:40 | NUR ---
TUBE FEED OF NEPRO INITIATED AT 10 ML/HR WITH FWF AT 50ML Q6HR.
--- NOTE | 2019-11-17 16:27 | NUR ---
IN TO SEE PATIENT AND ADMINISTER MEDICATION. PT RESTING COMFORTABLY IN BED WITH ALL NEEDS MET. BLOOD GLUCOSE CHECKED AND IS 123. NO ACTION REQUIRED. TF RESIDUAL 10 ML WAS REPLACED AND RATE INCREASED TO 20ML/HR.
--- NOTE | 2019-11-17 19:23 | NUR ---
REPORT GIVEN TO AGUILA BRUNER. ALL QUESTIONS AND CONCERNS ADDRESSED. ALL CARES ENDORSED.
--- NOTE | 2019-11-17 20:01 | NUR ---
RECEIVED AWAKE IN BED, PT ALERT BUT SLOW TO RESPOND . SKIN WARM AND DRY TO TOUCH WITH PEIRTONEAL CATH TO LLQ, WOUND VACCUM TO RIGHT HIP WITH MINIMAL DRAINAGE SEROSNGINOUS FLUID. PT DENIES PAIN/DISCOMFORT AT THIS TIME. NGT TO LEFT NARES WITH NEPRO AT 20ML/HR ORDERED, TO BE TITRATED FEEDING RATE PER PATIENT'S TOLERANCE.
[2019-11-18] VITALS (7 sets, daily range): BP systolic 106–143; BP diastolic 48–61
--- NOTE | 2019-11-18 | NUR ---
RENAL FEEDING INCREASED TO 30ML/HR AT 1999 AND TOLERATED WELL. PERITONESL DIALYSIS IN PROGRESS, CONTINUES ATB IVPB FOR MANAGEMENT OF PNEUMONIA WITHIOUT ADVERSE REACTION NOTED. NO GASTRIC RESIDUAL NOTED. NGT FEEDING INCREASED TO 40ML/HR (GOAL 40ML/HR). WILL CONTINUE TO MONITOR PATIENT'S CONDITION.
--- NOTE | 2019-11-18 01:05 | NUR ---
RECEIVED PT FROM ICU VIA BED ACCOMPANIED BY 2 NURSES. PT IS AWAKE BUT APPEARS DROWSY. SHE IS ORIENTED X4. PLACED ON O2 AT 2L VIA N/C W/ HUMIDIFIER. NO SOB AT THIS TIME. W/ NGT TO LT NARE INTACT. RESIDUALS CHECKED BUT NONE OBTAINED. PT W/ ONGOING PERITONEAL DIALYSIS . WOUND TO RT HIP W/ WOUND VAC IN PLACE. W/ HL TO LT WRIST. ON TELE 11 AND SHOWING SINUS RHYTHM. W/ SCDS TO BLE. CALL LIGHT PLACED W/IN REACH.
--- NOTE | 2019-11-18 05:13 | NUR ---
PT APPEARS TO BE SLEEPING COMFORTABLY. SHE IS EASILY AROUSABLE AND ANSWERS SLOWLY WHEN QUESTIONED. PT NO RESP. DISTRESS NOTED AT THIS TIME. GT FEEDING INFUSING AT 40 CC/HR NO RESIDUALS NOTED AT THIS TIME. PERITONEAL DIALYSIS IN PROGRESS. WOUND VAC IN PLACE. ALL NEEDS ATTENDED TO.
[2019-11-18 07:13] LABS: BASOPHIL % 0.2 % (0-2); PLATELET COUNT 151 x10^3mcL (130-400)
--- NOTE | 2019-11-18 07:25 | NUR ---
RECEIVED PATIENT AWAKE/ALERT IN BED, DENIES PAIN. ASKING THE NURSE TO WIPE HER NOSE. NO DISTRESS NOTED. TELE #11 SR WITH HR 81 NOTED, IV TO LW INTACT AND INFUSING NS AT 5ML/HR, CALL LIGHT WITHIN REACH.
[2019-11-18 08:16] LABS: RED CELL DISTRIBUTION WIDTH 19.6 % (11.5-14.5)
[2019-11-18 08:44] LABS: CALCIUM 6.9 mg/dL (8.5-10.1); CARBON DIOXIDE 23.1 mmol/L (21-32)
[2019-11-18 08:57] LABS: CREATININE SERUM 5.3 mg/dL (0.6-1.0); POTASSIUM SERUM 2.8 mmol/L (3.5-5.1)
--- NOTE | 2019-11-18 11:26 | NUR ---
PATIENT AWAKEN WITH YAEL AT BEDSIDE, KYLIE OVEN DRIER TENDER IN THE ROOM WITH RN PRESENT UPDATE POC, CONSULT GURWINDER WAGNER FOR PEG PLACEMENT AND OPTIONS FOR [facility] CARE. BS 253 COVER WITH REGULAR INSULIN 9 UNITS SQ AND PROCRIT 10,000 UNIT SQ. REPOSITIONED. HOB/BLE ELEVATED
--- NOTE | 2019-11-18 13:10 | NUR ---
PATIENT RESTING IN BED EYES CLOSED, NO ACUTE DISTRESS NOTED, KRIDER 40MEQ IV X 1 INFUSING AT 68ML/HR TO LW, PATENT. ALL MEDS ADMINISTERED TO NGT, RESIDUAL 2ML AND CONT NGT FEEDING. K 2.9. TELE SR, HR 81 NOTED. TURN AND REPOSITIONED. HOB ELEVATED. CONT TO MONITOR.
--- NOTE | 2019-11-18 14:33 | NUR ---
DR. ODONNELL WITH DR. PURDY AT BEDSIDE SPOKE AND DISCUSS POC WITH YAEL -. PER DR. ODONNELL REMOVED PD CATHETER AND CONVERT TO HD. CALLED COMMUNICATION ENGINEER FERNANDO TO SPOKE WITH DR. ODONNELL OVER THE PHONEM CONSULT VASCULAR SURGEON FOR TUNNEL DIALYSIS CATHETER PLACEMENT AND REMOVED PD CATHETER, AMD PER DR. PURDY WILL PLACE PEG AFTER TUNNEL DAILYSIS CATHETER PLACEMENT.
--- NOTE | 2019-11-18 15:16 | NUR ---
YAEL PT AT THE BEDSIDE AND AWARE ABOUT ALL THE PLAN FOR HIS , FERNANDO(N.P.) DISCUSSED TO IF HE IS AGREEABLE OF PEG PLACEMENT AND IS AGREEEABLE. DR.SAMUEL ODONNELL(NEPHRO) DISCUSSED AND EXPLAIEND TO PT OF HEMODIALYSIS PLAN AND HD CATH PLACEMENT AND IS AGREEABLE OF THIS PLAN WELL. PRINT OUT EDUCATION WAS GIVEN TO . WILL AWAIT FOR SURGICAL CONSULTATION.
--- NOTE | 2019-11-18 16:47 | NUR ---
PATIENT RESTING IN BED AWAKEN. REMAIN AT BEDSIDE. PO MEDS ADMINISTERED VIA NGT, RESIDUAL 2ML. CONT WITH TF. DR. JATINDER CHURCH SEEN PATIENT'S YAEL AT BEDSIDE DISCUSS PLAN TO CHELE CATHETER IN THE NECK AT 0900. PER HOLD TF AFTER MN. COVER REGULAR INSULIN SQ 2UNITS FOR BS 178. CONT TO MONITOR.
--- NOTE | 2019-11-18 17:36 | NUR ---
CALLED AND SPOKE TO DR.HARRY CHURCH AND MADE HIM AWARE THAT [employer] HAD SPOKE TO REBECA(HOOK UP) AND MADE AWARE THAT PT IRRIGATOR HEAD HAD APPROVED SURGICAL PROCEDURE HERE FOR TUNNELED CATH PLACEMENT AND REMOVAL OF PD CATH. FRANKIE BRUNER ASSIGNED TO THIS PT MADE AWARE OF ABOVE. PT AT THE BEDSIDE MADE AWARE OF ABOVE.
--- NOTE | 2019-11-18 17:41 | NUR ---
PATIENT RESTING IN BED NO DISTRESS NOTED, TELE NSR, HR 81. YAEL AT BEDSIDE, KYLE ROJAS WITH PRIMARY RN AT BEDSIDE INFORM PATIENT THAT INSURANCE AUTHORIZE [place] FOR TUNNEL CATHER PLACEMENT, REMOVAL OF PD CATHETER, AND PEG PLACEMENT. YAEL SIGNED CONSENT FOR TUNNEL CATHETER PLACEMENT AND ANESTHIA CONSENT. NO FURTHER QUESTIONS. DIFLUCAN IVPB INFUSING AT 50ML/HR. TURN PATIENT. BUE/BLE ELEVATED. HOB ELEVATED.
--- NOTE | 2019-11-18 18:39 | NUR ---
CALLED AND SPOKE TO ADAMA(HD NURSE) AND MADE HER AWARE THAT PT IS SCHEDULE FOR TUNNELED CATH PLACEMENT TOMORROW AM AND REMOVAL OF PD CATH TOMORROW. ADAMA SAID WILL COME IN TONIGHT TO START PD AT AROUND 2000 AND END AT 0600 TOMORROW PRIOR TO THE PROCEDURE. FRANKIE BRUNER ASSIGNED TO THIS PT MADE AWARE OF ABOVE.
--- NOTE | 2019-11-18 18:42 | NUR ---
OBTAIN ONSENT FOR REMOVAL OF PERITONEAL DIALYSIS CATHETER FROM YAEL, FAMILY MEMBER REMAIN AT BEDSIDE. NO FURTHER QUESTIONS. CONT KRIDER AT 68ML/HR. CONT TO MONITOR.
--- NOTE | 2019-11-18 19:30 | NUR ---
RECEIVED PT FROM DAY SHIFT RN. PT BREATHING EVEN AND UNLABORED ON NC 2L/MIN, NO SOB NOTED. REQUESTING FOR BREATHING TX, RT PAGED. PT ALERT AND ORIENTED. SLOW SPEECH. PT DENIES HOWARD/DIZZINESS. TELE #11 NSR. PT DENIES CHEST PAIN/PRESSURE. DIALYSIS NURSE AT BEDSIDE. PT ANURIC. NGT IN PLACE TO LEFT NARE WITH TUBE FEEDING INFUSING WELL AT 50ML/HR, RISIDUAL OF 20 CC. ASPIRATION PRECAUTIONS. IV LW PATENT WITH KCL INFUSING AT THIS TIME. PT BEDBOUND. TURNED AND REPOSITIONED. RIGHT HIP WOUND VAC IN PLACE. NO SIGNS OF ACUTE DISTRESS NOTED. CALL BUTTON WITHIN REACH. SAFETY PRECAUTIONS IN PLACE. FAMILY AT BEDSIDE. WILL CONTINUE TO MONITOR.
--- NOTE | 2019-11-18 20:49 | NUR ---
RECEIVED A CALL FROM DR ALVAREZ, ANESTHESIOLOGIST REGARDING PT PROCEDURE FOR TOMORROW AND UPDATE ON PT.
--- NOTE | 2019-11-19 01:46 | NUR ---
ROUNDS MADE. PT RESTING. BREATHING EVEN AND UNLABORED, ON NC 2L/MIN. NO SOB NOTED. NO SIGNS OF ACUTE DISTRESS NOTED. CALL BUTTON WITHIN REACH. SAFETY PRECAUTIONS IN PLACE. WILL CONTINUE TO MONITOR.
--- NOTE | 2019-11-19 03:00 | NUR ---
RT AT BEDSIDE. PT 02SAT AT 88% ON NC 2L/MIN. PLACED PT ON NC 4L/MIN, O2SAT 94% NO RESP DISTRESS NOTED. WILL MONITOR
[2019-11-19 05:27] VITALS: BP 100/46
--- NOTE | 2019-11-19 06:02 | NUR ---
PT SLEPT ON AND OFF THROUGHOUT THE NIGHT. NGT IN PLACE. NPO SINCE MIDNIGHT. MEDICATED PER EMAR. PT ON NC 4L/MIN. NO SOB NOTED. RT PROTOCOL. TURNED AND REPOSITIONED Q2HRS AND NEEDED. NO ACUTE DISTRESS NOTED. CALL BUTTON WITHIN REACH. SAFETY PRECAUTIONS IN PLACE. WILL CONTINUE TO MONITOR AND ENDORSE CARE TO DAY SHIFT RN.
[2019-11-19 06:38] LABS: CALCIUM 8.1 mg/dL (8.5-10.1); CARBON DIOXIDE 27.3 mmol/L (21-32); POTASSIUM SERUM 3.3 mmol/L (3.5-5.1)
[2019-11-19 07:07] LABS: CREATININE SERUM 5.9 mg/dL (0.6-1.0)
--- NOTE | 2019-11-19 07:27 | NUR ---
PT RESTING. NO SIGNS OF ACUTE DISTRESS NOTED. CALL BUTTON WITHIN REACH. SAFETY PRECAUTIONS IN PLACE. ENDORSED CARE TO DAY SHIFT RN, ALL QUESTIONS ADDRESSED. REPOORT GIVEN TO MONTSERRAT FROM OR. ALL QUESTIONS ADDRESSED.
[2019-11-19 07:34] LABS: BASOPHIL % 0.5 % (0-2); PLATELET COUNT 144 x10^3mcL (130-400)
--- NOTE | 2019-11-19 07:35 | NUR ---
RECEIVED HAND OFF REPORT FROM NIGHT NURSE. PATIENT AWAKE WITH EYES OPEN AT THIS TIME. NO COMPLAINTS OF PAIN, VERY WEAK. 4LPM VIA NC. IV TO LEFT WRIST FLUSHING WELL. TELE [address] ON CEHST, SHOWING NSR SLOW TO RESPOND. NGT TO LEFT NARE TUBE FEEDING HELD AT THIS TIME DUE TO PENDING PROCEDURE. PD CATH IN PLACE TO ABD, MACHINE FINISHED DIALYSIS, AWAITING DIALYSIS NURSE TO DISCONNECT. CALL LIGHT WITHIN REACH
[2019-11-19 08:30] VITALS: BP 91/44
[2019-11-19 08:39] LABS: RED CELL DISTRIBUTION WIDTH 20.7 % (11.5-14.5)
[2019-11-19 08:41] LABS: burr cell (echinocyte) 1+; rbc morphology (normal/abnorm) ABNORMAL (NORMAL); target cell (codocyte) 1+; tear drop cell (dacryocyte) 1+
--- NOTE | 2019-11-19 09:47 | NUR ---
SPOKE WITH OR, DUE TO HAVING ELIQUIS YESTERDAY, PATIETN SURGICAL PROCEDURE WILL BE PUT ON HOLD. INFORMED FAMILY MEMBER.
--- NOTE | 2019-11-19 10:53 | NUR ---
DUE TO NOT HAVING SURGERY, MIRANDA KING RESTARTED TUBE FEEDING, ORDER ENTERED, ATMINISTERED MEDICATION PER MAR. AT BEDSIDE. DR CHACON ROUNDED AND UPDATED ON PLAN OF CARE AND NEED FOR DIALYSIS CATH. PATIENT STABLE AT THIS TIME. CALL LIGHT WITHIN REACH
[2019-11-19 12:35] VITALS: BP 110/54
--- NOTE | 2019-11-19 14:15 | NUR ---
DR.HARRY CHURCH CAME BY AND SEEN PT, WITH ORDER TO PLACE PT ON NPO POST MIDNIGHT FOR PROCEDURE TOMORROW. PLS SEE CPOE. ABDIEL BRUNER ASSIGNED TO THIS PT AWARE OF ABOVE.
--- NOTE | 2019-11-19 14:21 | NUR ---
PHYSICAL THERAPY NOTE PATIENT IS SEEN FOR WEEKLY PROGRESS REVIEW. PATIENT DEMONSTREATED NO IMPROVEMENT ON FUNCTIONAL MOBILITY, POOR RESPONSE ON COMMAND, TOTAL DEPENDENCE ON FUNCTIONAL MOBILITY. PATIENT IS NOT AN APPROPRIATE CANDIDATE FOR PHYSICAL THERAPY AT THIS TIME. D/C FROM PHYSICAL THERAPY AND [place] [facility] [place]. ATTENDING RN ABDIEL BELL.
--- NOTE | 2019-11-19 14:50 | NUR ---
DR CHURCH SAW PATIENT AND ENTERED ORDER FOR NPO AFTER MIDNIGHT TONIGHT FOR PENDING SURGERY TOMORROW,
--- NOTE | 2019-11-19 15:25 | NUR ---
PATIENT TOLLERATING FEEDING WELL, ADVANCED PER ORDER. REINFORCED TEACHING ABOUT PROCEDURE TO . NO COMPLAINTS FROM PATIENT. REPOSITIONED. ANTIBIOTIC HUNG PIGGYBACK PER MAR. CALL LIGHT WITHIN REACH
[2019-11-19 16:31] VITALS: BP 102/45
--- NOTE | 2019-11-19 17:37 | NUR ---
NEW IV STARTED IN RIGHT AC, 24G, FLUSHING WELL
--- NOTE | 2019-11-19 18:39 | NUR ---
PATIENT RESTING AT THIS TIME. FAMILY AT BEDSIDE. NO PAIN REPORTED, NO BM TODAY UNABLE TO SEND STOOL SAMPLE FOR ORDER. PATIENT WAS TURNED [id number] BY GALLERY HOST CALL LIGHT WITHIN REACH
[2019-11-19 19:20] VITALS: BP 128/57
--- NOTE | 2019-11-19 19:20 | NUR ---
RECEIVED PT AWAKE ALERT AND SLOW TO RESPONDS,NODS TO ACKNOWLEDGE STAFF;S QUESTION.BREATHING EASY AND NON-LABORED WITH FINE CRACKLES ON AUSCULTATION.O2 @ 4L/MIN VIA N/C AT 99%NGT TO L NARES TO CONTINOUS FEEDING SET @ 40 ML/HR AT THIS TIME.NO RESIDUAL NOTED.ABDOMEN SOFT AND NON-DISTENDED.NO N/V NOTED.HOB KEPT ELEVATED.NOTICED EDEMATOUS TO BUE/BLE.LLQ PERITONEAL DIALYSIS SHUNT WITH DRESSING INTACT.WOUND VAC TO R HIP @ 125 MMHG.NO DRAINAGE AT THIS TIME.HIP OFF LOADED BY PILLOWS.LATEST BP 128/57 MMHG,HR 78.WILL CONTINUE TO MONITOR.
--- NOTE | 2019-11-19 21:32 | NUR ---
INFORMED MD OF MUCINEX PO CANNOT BE CRUSHED AND BS TONIGHT @ 179 MG/DL.SUPPOSE TO GET 3 UNITS REG INSULIN.HELD D/T PT WILL BE NPO FOR TUNNELED CATH PLACEMENT TOMORROW.ALSO REPORTED K LEVEL 3.3.
--- NOTE | 2019-11-19 22:49 | NUR ---
PT NOTED HAND TANGLED ON THE NGT AND NOTICEABLE LINES LONGER THAN NORMAL.ADVANCE NGT AND SECURED.CALLED AND OBTAIN XRAY ORDER TO CHECK FOR PLACEMENT BEFORE RESTARTING FEEDING.
[2019-11-20] VITALS (10 sets, daily range): BP systolic 92–128; BP diastolic 50–67
--- NOTE | 2019-11-20 | NUR ---
XRAY RESULT. NGT SITS WELL IN THE STOMACH.PT PLACED ON NPO AT THIS TIME.PD ONGOING AT THIS TIME AND TOLERATING WELL.WILL CONTINUE TO MONITOR.
--- NOTE | 2019-11-20 04:49 | NUR ---
PT AWAKE MOST OF THE NIGHT.BREATHING EASY AND NON-LABORED.O2@ 4L/MIN VIA N/C.ON RT PROTOCOL.FINE CRACKLES ON AUSCULTATION.NPO AT THIS TIME.NGT TO L NARES CLAMPED.PERITONEAL DIALYSIS ON GOING AND TOLERATING WELL.PT ANURIC.NO BM THIS SHIFT.TURNED AND REPOSITIONED.ALL NEEDS ANTICIPATED.WILL CONTINUE TO MONITOR.
--- NOTE | 2019-11-20 05:11 | NUR ---
LATEST BP 112/53 MMHG.NO ASE NOTED FROM CLEOCIN IV ATB.BS THIS AM @ 278 MG/DL.WILL HOLD 6 UNITS REGULAR INSULIN.PT NPO AT THIS TIME.SCHEDULE TUNNEL CATH PLACEMENT @ 10AM TODAY. MADE AWARE.WILL ENDORSE TO AM NURSE.
[2019-11-20 06:45] LABS: CALCIUM 8.7 mg/dL (8.5-10.1); CARBON DIOXIDE 26.6 mmol/L (21-32); POTASSIUM SERUM 3.5 mmol/L (3.5-5.1)
[2019-11-20 07:13] LABS: CREATININE SERUM 5.8 mg/dL (0.6-1.0)
--- NOTE | 2019-11-20 07:24 | NUR ---
RECEIVED HAND OFF REPORT FROM ZOHREH NARAYAN. PATIENT NEARLY DISPLACED NGT LAST NIGHT BUT CHEST XRAY CONFIRMED PALCEMENT IN STOMACH. TODAY PATIENT IS AWAKE AND VERY WEAK, UNABLE TO RAISE ARMS WITHOUT ASSISTANCE. EDEMA NOTED TO BUE 1+ PITTING. TELE [address] PATIENT SHOWING NSR, FINE CRACKLES HEARD IN LUNG BASES. SURGERY SCHEDULED THIS AM FOR TUNNELED CATH PLACEMENT. CHECKLIST FINISHED, CONSENT SIGNED, TUNDE WIPES TO BE DONE. SUGAR WAS HIGH LAST NIGHT, NO COVERAGE GIVEN DUE TO NPO STATUS AFTER MIDNIGHT. CALL LIGHT IN PATIETN HAND, WILL CONTINUE TO MONITOR
[2019-11-20 07:39] LABS: BASOPHIL % 0.3 % (0-2); PLATELET COUNT 149 x10^3mcL (130-400)
--- NOTE | 2019-11-20 08:20 | NUR ---
DIALYSIS NURSE DISCONECTED PATIENT FROM PD. 622ML OUT REPORTED NURSE MADE AWARE OF TUNNELED CATH PLACEMENT TODAY
[2019-11-20 08:40] LABS: RED CELL DISTRIBUTION WIDTH 21.2 % (11.5-14.5)
[2019-11-20 08:43] LABS: rbc morphology (normal/abnorm) ABNORMAL (NORMAL)
--- NOTE | 2019-11-20 09:00 | NUR ---
PATIENT PO MEDICATIONS HELD DUE TO NPO STATUS AND PENDING SURGICAL PROCEDURE. MIDODRINE 5MG NOT GIVEN DUE TO BLOOD PRESSURE ABOVE PARAMETERS AT 123/59.
--- NOTE | 2019-11-20 09:30 | NUR ---
SHAY CAME UP TO TRANSPORT PATIENT TO SURGICAL DEPARTMENT. TELE 11 REMOVED FROM PATIENT AND TAKEN TO [facility], COUNTY SUPERVISOR. AND DAUGHTER ARRIVED AFTER PATIENT TRANSPORTED, ESCORTED TO SURGICAL WAITING AND INFORMED STAFF MEMBERS OF ARRIVAL OF FAMILY.
--- NOTE | 2019-11-20 11:02 | NUR ---
RECEIVED CALL FROM SHAY IN [facility], PATIENT PROCEDURE IS FINISHED, NEW TUNNELED CATH TO RIGHT CHEST. PD CATH STILL REMAINS IN PLACE. PATIENT DID NOT GETANESTESIA BUT LOCAL ONLY. DUE TO LOW 02 SAT. PATIENT NEEDING NON REBREATHIER IN OR. NOW ON 4L NC WITH 92%. EBL 7ML PATIENT BEING TRANSPORTED UP AT THIS TIME.
--- NOTE | 2019-11-20 11:45 | NUR ---
PATIENT WAS BROUHGT UP BY SHAY RN. NO POST OP RECOVERY DUE TO ONLY LOCAL ANESTESIA BEING USED. PAITNET BROUGHT UP AND BED MOVED BACK INTO ROOM. PATIENT ON 4LNC SATING AT 85%, SHAY STATNIG THAT PATIENT WAS SATING AT 92% DOWNSTAIRS, (NEEDING NONREBREATHER FOR SAT OF 94%) REPOSITIONED PATIENT AND WAS NOT ABLE TO OBTAIN SAT OF HIGHER THAN 84%. PAITENT AWAKE, DROWSY, BUT ROUSABLE. LUNGS SOUND CONGESTED. PLACED PATIETN ON NRB AT 10LMP AND CALLED RT, O2 SAT ADVNACED TO 98% ON 10LMP NRB. BREATHING TREATMENT BEING ADMINSTERED BY RT AT THIS TIME. SUCTIONING TO BE ATTEMPTED
--- NOTE | 2019-11-20 12:33 | NUR ---
CALLED CAMELIA AND INFORMED ON PATIENT CONDITION AND POST SURGERY STATUS. MADE AWARE OF RT INTERVENTIONS AND CURRENT RESPONCE TO TREATMENT. INFOMRED ABOUT RESULT OF SURGERY AND PD CATH STILL IN PLACE. RECEIVED ORDER TO CONTINUE TUBE FEEDING PREVIOUSLT ORDERED
--- NOTE | 2019-11-20 13:21 | NUR ---
Follow-up Nutrition Assessment- Terry Ruthie 206T-B Dx: PNA, Elevated troponin, hypotension Labs: (11/20) BH, BUN:35H, Cr:5.8H, WBC:13.9H, H/H:8.9/28L Meds: Cleocin, Colace, Diflucan, Folic acid, Humulin PRN, Lactinex, Levaquin, Lipitor, Procrit, Reglan, Zofran Diet: NPO for procedure on 11/20 Weights: (11/15) 63kg (11/20) 65kg possibly due to dialysis Skin: wound to right upper hip with wound vac Edema: BUE Last BM: 11/17 Per progress note 11/20, pt noted to be om PD and 4 LPM via NC. Tunnel catheter placement is pending. Plan: surgical consult for PD removal and tunnel catheter placement with Dr. Pink. During visit, pt was seen asleep and unarousable, just having come back from surgery. Order received to resume TF. Estimated Nutritional Needs based on current body weight:63.5kg Energy: 1905-2220kcal/day (30-35kcla/kg for wound healing and dialysis) Protein: 76-89g/day (1.2-1.4g/day for wound healing and dialysis) Fluid: 1-1.2L +output for dialysis Nutrition Diagnosis 1. Increased nutrient needs related to increased metabolic demands as evidenced by wounds (ongoing) Intervention/RDN Recommendation(s): 1. Recommend Nepro at 45ml/hr. to provide 1944kcal, 87g protein and 785ml fluid. This meets 100% caloric and protein needs. Monitor/Evaluate Goal: PO intakes to meet at least 75% of estimated needs with acceptable tolerance and wound healing within 2-3 days. Monitor: PO intakes, Labs, GI function, Skin integrity, Weights. F/U in 2-3 days as high risk 11/22-
--- NOTE | 2019-11-20 13:22 | NUR ---
1. Recommend Nepro at 45ml/hr. to provide 1944kcal, 87g protein and 785ml fluid. This meets 100% caloric and protein needs.
--- NOTE | 2019-11-20 14:34 | NUR ---
CALLED DR ODONNELL AND INFORME DOF RESULT OF SURGERY. UPDATED ON LABS, DR ODONNELL STATED THAT DUE TO PLACEMENT OF TUNNELED CATH AND LABS, NO NEED FOR PD TONIGHT WILL PLAN FOR HD TOMORROW. CALLED ZOHREH GALAN AND INFORMED. HD CONSENT SIGNED BY
--- NOTE | 2019-11-20 15:17 | NUR ---
RT GAVE BREATHING TREATMENT AND NOW NOY IS ON OXIMIZER AT 7LT. O2 SAT 94%. WILL CONTINUE TO MONITOR
--- NOTE | 2019-11-20 16:10 | NUR ---
ASSESSMENT OF PATIENT FOUND PATIENT TO BE RESPONSIVE ONLY TO PHYSICAL STIMULI. BLOOD PRESSURE LOW 60/49 O2 SAT 88% ON 7LPM OXYMIZER. ADMINISERED MIDODRINE 10 VIA NGT AND STARTED 500 BOLUS PER CAMELIA JEAN ORDER. CHARGE NURSE LUCERO CALLED RAPID RESPONSE, DOCUMENTATION PER RAPID RESPONSE TEAM SHEET. DR GUTHRIE INTUBAED PATIENT @1621 7.5 ET, 22 @ LIP, RESPIRATIONS ASSISTED VIA BVM , DOPAMINE STARTED AT 20MG/KG @1616, BLOOD SUGAR 192. NEW IV STARTED TO LEFT AC. PATIENT RESPONDED WELL, BP 201/86 HR 82, SPO2 98%. DOPAMINE STOPPED @1620. PATIENT TRANSPORTED TO ICU. REPORT GIVEN TO YEVGENIY BRUNER. CAMELIA JEAN AWARE OF TRANSFER TO ICU.
--- NOTE | 2019-11-20 16:15 | NUR ---
RECEIVED PT ON UNIT BY [facility], [facility] CHARGE NURSE, 2 RT, AND DR. BUSTOS. PT OBTUNDED ON NO SEDATION. UNABLE TO FOLLOW COMMANDS OR MAKE NEEDS KNOWN. PUPILS DILATED @ 5MM AND FIXED. NO GAG REFLEX PRESENT. LIJ TUNNELED CATH PLACED TODAY INTACT/SECURED. 7.5 ETT @ 22CM LL. L NARE NGT INTACT/SECURED. TRACHEA MIDLINE. ETT TO VENT: VCV/AC MODE = 5 PEEP, 100% FIO2, 20 RATE, 350 VT. BREATHING E/U. SYMMETRICAL CHEST WALL EXPANSION. RONCHI AUSCULTATED TO BUL, DIM TO BLL. NO S/SX OF RESP DISTRESS. SINUS TACHYCARDIA. HR = 122, BP = 121/64 (81), RR = 20, O2 SAT = 99%. WEAK PULSES X4. CAP REFILL DELAYED. EDEMA NOTED TO BUE. SKIN WARM/DRY TO TOUCH, PALE IN COLOR. PIV TO LAC AND RAC INTACT/SECURED. NS 500ML BOLUS NOTED, LEVOPHED @ 2MCG/MIN. ABD IS LARGE, SOFT, FLAT, NONTENDER. HYPOACTIVE BOWEL SOUNDS X4. NO BM. ANURIC. HD PT. LLQ PERITONEAL DIALYSIS CATH INTACT/SECURED, DRESSING CDI. WOUND VAC NOTED TO RIGHT BUTTOCKS/LEG. DRESSING INTACT/SECURED. ASSUMING CARE AND RECEIVING ORDERS FROM DR. BUSTOS AND CAMELIA JEAN.
--- NOTE | 2019-11-20 16:40 | NUR ---
JOANNA DENISE NOTIFIED THAT RAPID RESPONSE WAS CALLED DUE TO LOW BP (60/29) AND PATIENT WAS NON-RESPONSIVE TO VERBAL STIMULATION. RAPID RESPONSE TEAM ARRIVED IN TIME, BOLUS WITH NS STARTED, DR GUTHRIE CAME TO THE ROOM AND INTUBATED PATIENT. DOPAMINE STARTED PER MD ORDER. PATIENT TRANSFERRED TO ICU BED 1. ATTENDING NURSE ABDIEL BELL.
--- NOTE | 2019-11-20 17:00 | NUR ---
MAP OF 48. PER DR. BUSTOS, TITRATE LEVO TO 10 MCG/MIN.
--- NOTE | 2019-11-20 17:16 | NUR ---
BS OF 197. NOT GIVING INSULIN. PT NOT ON TUBE FEEDINGS.
--- NOTE | 2019-11-20 17:18 | NUR ---
NIBP = 131/61 (75). LEVOPHED TITRATED TO 8MCG/MIN
--- NOTE | 2019-11-20 17:30 | NUR ---
MELL ADAMS AT BEDSIDE PULLING BACK ETT TO 21CM LL AND CHANGING PEEP TO 8.
--- NOTE | 2019-11-20 17:39 | NUR ---
MAP OF 62. LEVOPHED TITRATED TO 10 MCG/MIN.
[2019-11-20 18:11] LABS: BASOPHIL % 0.4 % (0-2); PLATELET COUNT 176 x10^3mcL (130-400)
[2019-11-20 18:19] LABS: RED CELL DISTRIBUTION WIDTH 21.3 % (11.5-14.5)
[2019-11-20 18:29] LABS: CALCIUM 8.8 mg/dL (8.5-10.1); CARBON DIOXIDE 26.9 mmol/L (21-32); CHLORIDE SERUM 104 mmol/L (98-107); GFR1 7 mL/min; GLUCOSE SERUM 224 mg/dL (74-106); POTASSIUM SERUM 4.5 mmol/L (3.5-5.1); SODIUM SERUM 142 mmol/L (136-145)
--- NOTE | 2019-11-20 18:33 | NUR ---
MAP OF 78. LEVO TITRATED TO 8MCG/MIN
[2019-11-20 18:46] LABS: rbc morphology (normal/abnorm) ABNORMAL (NORMAL)
--- NOTE | 2019-11-20 19:00 | NUR ---
REPORT GIVEN TO ANNABELLA BRUNER. ALL QUESTIONS ANSWERED AND ADDRESSED. RN TO ASSUME CARE AT THIS TIME
--- NOTE | 2019-11-20 19:01 | NUR ---
RECIEVED REPORT FROM ZOHREH VUONG. NURSING UPDATES POC DISCUSSED. SEE SHIFT ASSESSMENT FOR ASSESSMENT.
--- NOTE | 2019-11-20 20:54 | NUR ---
CONSISTENT MAP < 65. TITRATED LEVO FROM 8MCG/MIN TO 10MCG/MIN TO MAINTAIN MAP > 65. WILL CONT TO MONITOR.
--- NOTE | 2019-11-20 21:29 | NUR ---
CONSISTENT MAP > 65. TITRATED LEVO FROM 10MCG/MIN TO 8MCG/MIN TO MAINTAIN MAP > 65. WILL CONT TO MONITOR.
--- NOTE | 2019-11-20 21:58 | NUR ---
CONTROL VALVE TECHNICIAN @ BEDSIDE.
--- NOTE | 2019-11-20 22:54 | NUR ---
NOTIFIED PER LAB LACTIC ACID 2.1. TRENDING DOWN. WILL ENDORSE.
[2019-11-21] VITALS (16 sets, daily range): BP systolic 96–142; BP diastolic 45–65
--- NOTE | 2019-11-21 | NUR ---
NO ACUTE CHANGES. WILL CONT TO MONITOR.
--- NOTE | 2019-11-21 01:00 | NUR ---
NO ACUTE CHANGES. WILL CONT TO MONITOR.
--- NOTE | 2019-11-21 02:00 | NUR ---
DR MEDINA @ BEDSIDE. NURSING UPDATES. POC DISCUSSED. AWAITING NEW ORDERS.
--- NOTE | 2019-11-21 02:36 | NUR ---
NOTIFIED PER RT FI02 SAT TO 80%, PT TOLERATED WELL. O2 SAT 99%. WILL CONT TO MONITOR.
--- NOTE | 2019-11-21 05:25 | NUR ---
NOTIFIED PER RT FIO2 60%. PT TOLERATED WELL O2 SAT 96% CONSISTENTLY. WILL CONT TO MONITOR.
[2019-11-21 05:46] LABS: CALCIUM 8.6 mg/dL (8.5-10.1); MAGNESIUM 1.8 mg/dL (1.8-2.4); POTASSIUM SERUM 4.5 mmol/L (3.5-5.1)
[2019-11-21 05:48] LABS: BASOPHIL % 0.1 % (0-2); PLATELET COUNT 180 x10^3mcL (130-400)
[2019-11-21 05:54] LABS: CREATININE SERUM 5.9 mg/dL (0.6-1.0)
--- NOTE | 2019-11-21 07:30 | NUR ---
RC'D PT INTUBATED, NO SEDATION. PT RESPONDS TO TACTILE SIMTULUS AND ABLE TO FOLLOW SIMPLE COMMANDS. PUPILS 3MM AND SLUGGISH BILAT. NO GAG RELFEX NOTED. 7.5 ETT INTACT AND SECURED, 21 LL. LEFT NGT INTACT AND SECURED. ETT TO VENT, AC; TV 350, PEEP 8, FIO2 70%, RATE 20. RESP E/U. LUNGS DIM TO BASES, CONGESTION NOTED. SPO2 96%, NO RESP DISTRESS NOTED. ORAL CARE PROVIDED PER VAP PROTOCOL. NSR ON CM, HR 82. S1S2 AUSC. NO S/S OF CP. WEAK PALP PULSES TO BUE/BLE, EDEMA NOTED TO BUE/BLE, ELEVATED. SKIN COOL TO TOUCH AND CONSISTENT WITH ETHNICITY. GENERALIZED WEAKNESS. PT REPOSITIONED Q2H AND PRN FOR PRESSURE REDUCTION PER PROTOCOL. PT NPO AT THIS TIME. ABDOMEN SOFT. HYPOACTIVE BS. NO BM NOTED. PD ACCESS NOTED TO MID ABDOMEN. PT ANURIC. RIGHT BUTTOCK/HIP WOUND VAC IN PLACE. RUC CLYDE SPLINT CATH IN PLACE. BED IN LOW POSITION. WILL CONT TO MONITOR
--- NOTE | 2019-11-21 08:50 | NUR ---
WOUND VAC DRESSING IN PLACE, NO CHANGE OF WOUND CONDITION.
--- NOTE | 2019-11-21 10:24 | NUR ---
FAMILY PRESENT AT BEDSIDE. UPDATED ON PTS CURRENT STATUS. ALL QUESTIONS AND CONCERNS ADDRESSED. WILL CONT TO MONITOR CLOSELY
--- NOTE | 2019-11-21 10:40 | NUR ---
BP 132/53 (83), LEVOPHED TITRATED TO 6MCG/MIN. WILL CONT TO MONITOR
--- NOTE | 2019-11-21 11:00 | NUR ---
NIBP 111/49, MAP 71. LEVOPHED DRIP TITRATED DOWN TO 4 MCG/MIN. WILL CONTINUE TO MONITOR.
--- NOTE | 2019-11-21 11:05 | NUR ---
MIRANDA KING MADE AWARE THAT PATIENT WILL NOT BE HAVING HEMODIALYSIS TODAY D/T THE CT ANGIO CHEST BEING ON HOLD AND TO BE DONE RIGHT BEFORE HEMODIAYSIS. PATIENT ALSO HAS A PENDING ORDER FOR CT HEAD. PATIENT IS SCHEDULED FOR HEMODIALYSIS TOMORROW 11/22/19. MIRANDA KING IS OKAY WITH DOING BOTH THE CT HEAD AND CT ANGIO CHEST TOMORROW 11/22/19 PRIOR TO GETTING HEMODIALYSIS. ZOHREH HATCH MADE AWARE. WILL FOLLOW AND CONTINUE TO MONITOR.
--- NOTE | 2019-11-21 11:18 | NUR ---
BP 92/42 (58), LEVOPHED TITRATED TO 5MCG/MIN
--- NOTE | 2019-11-21 13:34 | NUR ---
DR PURDY PRESENT AT BEDSIDE TO DISCUSS POC. UPDATED ON PTS CURRENT STATUS. ALL QUESTIONS AND CONCERNS ADDRESSED
--- NOTE | 2019-11-21 15:52 | NUR ---
BP 137/58 (92), LEVOPHED TITRATED TO 4MCG/MIN. WILL CONT TO MONITOR
--- NOTE | 2019-11-21 16:25 | NUR ---
PUMONOLOGIST PRESENT AT BEDSIDE. UPDATED ON PT CURRENT STATUS. ALL QUESTIONS AND CONCERNS ADDRESSED. NO NEW ORDERS AT THIS TIME
--- NOTE | 2019-11-21 16:31 | NUR ---
DR PEREZ AND TEAM PRESENT AT BEDSIDE FOR CENTRAL LINE INSERTION. WILL CONTINUE TO MONITOR CLOSELY
--- NOTE | 2019-11-21 16:53 | NUR ---
CENTRAL LINE COMPLETE AT THIS TIME. VSS. AWAITING NEW ORDERS AT THIS TIME. WILL CONT TO MORGAN CLOSELY
--- NOTE | 2019-11-21 17:04 | NUR ---
XRAY PRESENT AT BEDSIDE
--- NOTE | 2019-11-21 17:15 | NUR ---
LIJ CVC INTACT, PORTS PATENT, DRESSING CDI.
--- NOTE | 2019-11-21 17:47 | NUR ---
FAMILY PRESENT AT BEDSIDE. UPDATED ON PTS CURRENT CONDITION. PT CLEANED AND REPOSITIONED. ORAL CARE PROVIDED. LEVOPHED TITRATED TO 2MCG/MIN AT THIS TIME. WILL CONT TO MONITOR
--- NOTE | 2019-11-21 19:16 | NUR ---
REPORT GIVEN TO ANNABELLA BRUNER. UPDATED ON PTS CURRENT STATUS. ALL QUESTIONS AND CONCERNS ADDRESSED. CARE ENDORSED AT THIS TIME
--- NOTE | 2019-11-21 19:16 | NUR ---
REPORT RECIEVED FROM ZOHREH FRITZ. NURSING UPDATES. POC DISCUSSED. RESUMED CARE OF PT. SEE SHIFT ASSESSMENT FOR ASSESSMENT.
--- NOTE | 2019-11-21 20:00 | NUR ---
PT RESTING CALMLY IN BED. NO ACUTE CHANGES.
--- NOTE | 2019-11-21 21:00 | NUR ---
PT RESTING CALMLY IN BED. NO ACUTE CHANGES.
--- NOTE | 2019-11-21 22:00 | NUR ---
PT RESTING CALMLY IN BED. NO ACUTE CHANGES.
--- NOTE | 2019-11-21 23:00 | NUR ---
PT RESTING CALMLY IN BED. NO ACUTE CHANGES.
[2019-11-22] VITALS (17 sets, daily range): BP systolic 124–190; BP diastolic 50–81
--- NOTE | 2019-11-22 00:42 | NUR ---
TITRATED LEVO FROM 1MCG/MIN TO OFF PER PT BP TOLERATING WNL MAP > 65. WILL CONT TO MONITOR.
--- NOTE | 2019-11-22 01:10 | NUR ---
REPORT GIVEN TO ZOHREH LANG. NURSING UPDATES. POC DISCUSSED. RELIEVED OF PT CARE.
[2019-11-22 05:43] LABS: PLATELET COUNT 150 x10^3mcL (130-400)
[2019-11-22 06:01] LABS: CALCIUM 8.5 mg/dL (8.5-10.1); POTASSIUM SERUM 4.4 mmol/L (3.5-5.1)
[2019-11-22 06:02] LABS: RED CELL DISTRIBUTION WIDTH 21.8 % (11.5-14.5)
[2019-11-22 06:11] LABS: CREATININE SERUM 6.3 mg/dL (0.6-1.0)
--- NOTE | 2019-11-22 07:45 | NUR ---
RC'D PT INTUBATED, NO SEDATION. PT RESPONDS TO TACTILE SIMTULUS AND ABLE TO FOLLOW SIMPLE COMMANDS. PUPILS 3MM AND SLUGGISH BILAT. NO GAG RELFEX NOTED. 7.5 ETT INTACT AND SECURED, 21 LL. LEFT NGT INTACT AND SECURED. ETT TO VENT, AC; TV 350, PEEP 8, FIO2 50%, RATE 20. RESP E/U. LUNGS DIM TO BASES, CONGESTION NOTED. SPO2 100%, NO RESP DISTRESS NOTED. ORAL CARE PROVIDED PER VAP PROTOCOL. NSR ON CM, HR 62. S1S2 AUSC. NO S/S OF CP. WEAK PALP PULSES TO BUE/BLE, EDEMA NOTED TO BUE/BLE, ELEVATED. SKIN COOL TO TOUCH AND CONSISTENT WITH ETHNICITY. GENERALIZED WEAKNESS. PT REPOSITIONED Q2H AND PRN FOR PRESSURE REDUCTION PER PROTOCOL. NEPHRO @ 30 WITH FWF 50 Q4H. NO RESIDUAL NOTED. ABDOMEN SOFT. HYPOACTIVE BS. NO BM NOTED. PD ACCESS NOTED TO MID ABDOMEN. PT ANURIC. RIGHT BUTTOCK/HIP WOUND VAC IN PLACE. RUC CLYDE SPLINT CATH IN PLACE. LIJ CVC INTACT, PORTS PATENT, DRESSING CDI. BED IN LOW POSITION. WILL CONT TO MONITOR
[2019-11-22 07:47] LABS: BAND NEUTROPHIL 5 % (0-10); MONOCYTE 4 % (0-7); SEGMENTED NEUTROPHILS 86 % (37-75)
[2019-11-22 07:49] LABS: burr cell (echinocyte) 2+; target cell (codocyte) 1+
[2019-11-22 07:52] LABS: rbc morphology (normal/abnorm) ABNORMAL (NORMAL)
--- NOTE | 2019-11-22 08:08 | NUR ---
RT PRESENT AT BEDSIDE
--- NOTE | 2019-11-22 08:57 | NUR ---
PT TAKEN TO CT AT THIS TIME WITH RT, CORINNE BRUNER AND BIANCA PRESENT AT BEDSIDE
--- NOTE | 2019-11-22 09:23 | NUR ---
PT BACK FROM CT AT THIS TIME. VSS. WILL CONT TO MONITOR
--- NOTE | 2019-11-22 09:30 | NUR ---
HD RN PAGED AT THIS TIME FOR HD STAT, HD RN NOTIFIED AND MADE AWARE. AWAITING ARRIVAL
--- NOTE | 2019-11-22 10:55 | NUR ---
DR PURDY PRESENT AT BEDSIDE TO DISCUSS PT POC. UPDATED ON PTS CURRENT STATUS. ALL QUESTIONS AND CONCERNS ADDRESSED. NO NEW ORDERS AT THIS TIME
--- NOTE | 2019-11-22 11:04 | NUR ---
FAMILY PRESENT AT BEDSIDE. UPDATED ON PTS CURRENT STATUS. ALL QUESTIONS AND CONCERNS ADDRESSED.
--- NOTE | 2019-11-22 11:15 | NUR ---
HD NURSE PRESENT AT BEDSIDE
--- NOTE | 2019-11-22 12:20 | NUR ---
Follow-up Nutrition Assessment: IC01/A TRISHA TAYLOR FU HR Dx: back pain, hypotension, PNA, elevated troponin PMHx: DM, Atrial fibrillation, multiple strokes, CABG, and ESRD Labs: (11/22) NA 135L, BG 318H, BUN 55H, CREAT 6.3H, ALB 1.4L, WBC 18.8H, HGB 7.7L Meds: Colace, D50%, Diflucan, folic acid, Humulin, Lactinex, levophed, norco, Lipitor, reglan Procrit, zofran Diet: Nepro (NG) @ 10 ml/hr, goal 40 ml/hr, advance Q4H, FWF 50 ml Q4H PO Intake: NPO Weights: (11/08) 63.5 kg, (11/15) 63 kg, (11/17) 66 kg (11/21) 62 kg - fluctuations d/t dialysis I/Os: (11/21) 824/10 (814) Skin: R hip buttock wound with wound vac Brandyn: 13 Edema: BUE/BLE GI: Last BM: 11/13 RD Note (11/22): Patient is intubated, no sedation. Patient is getting Nepro @ 30 ml/hr and is tolerating it well. Per RN, TF will be increased to goal of 40 ml/hr this morning. Per progress note (11/21) Patient is s/p tunneled dialysis catheter placement. HD to be initiated, PD catheter removal pending. Estimated Nutritional Needs Based on current body weight (63.5 kg) Energy: 6805-8548 kcal/day (30-35 kcal/kg for wound healing and dialysis) Protein: 76-89 g/day (1.2-1.4 g/kg for wound healing and dialysis) Fluid: 1-1.2L + dialysis output Nutrition Diagnosis: 1. Increased nutrient needs related to increased metabolic demands as evidenced by wounds, HD. (ongoing) Intervention: 1. Recommend Nepro @ 45ml/hr. This will provide 1944 kcal, 87g protein and 785 ml fluid. This meets 100% calorie and protein needs. Discussed with MIRANDA Ram and she is agreeable. Monitor/Evaluate: Goal: Have pt meet at least 75% of estimated needs Monitor: PO intake, Labs, GI function F/U in 2-3 days as high risk 11/24-
--- NOTE | 2019-11-22 13:32 | NUR ---
HD COMPLETE AT THIS TIME, 1L OUT. VSS, FOLLOWED; BP 135/58 HR 74 RESP 20 SPO2 100%. WILL CONT TO MONITOR
--- NOTE | 2019-11-22 13:54 | NUR ---
RT PRESENT AT BEDSIDE. PT TRANSITIONED TO CPAP PER DR BRINK. WILL CONT TO MONITOR CLOSELY
--- NOTE | 2019-11-22 16:02 | NUR ---
DR DA SILVA PRESENT AT BEDSIDE TO DISCUSS PT POC. UPDATED ON PTS CURRENT STATUS. ALL QUESTIONS AND CONCERNS ADDRESSED.
--- NOTE | 2019-11-22 18:10 | NUR ---
PT TRANSITIONED BACK TO AC MODE AT THIS TIME.
--- NOTE | 2019-11-22 18:45 | NUR ---
PT HAD LOOSE BM, CLEANED AND REPOSITIONED. TUNDE WIPED. LINEN AND CHUX CHANGED. ORAL CARE PROVIDED PER VAP PROTOCOL. WILL CONT TO MONITOR
--- NOTE | 2019-11-22 22:58 | NUR ---
REPORT GIVEN TO EMILY BRUNER. UPDATED ON PTS CURRENT STATUS. ALL QUESTIONS AND CONCERNS ADDRESSED. CARE ENDORSED.
--- NOTE | 2019-11-22 23:00 | NUR ---
RECEIVED REPORT FROM CATRINA BRUNER. PT ATTACHED TO FULL COMPUTERIZED MILL MILL RECORDER/CONT PULSE OXIMETRY. INTUBATED TO VENT INTACT. BED IN LOW POSITION. CALL LIGHT IN REACH. HOB ELEVATED 30 DEGREES. SEE SHIFT ASSESSMENT FOR FURTHER DETAILS. ASSUMING ALL CARE
[2019-11-23] VITALS (19 sets, daily range): BP systolic 106–159; BP diastolic 51–76
--- NOTE | 2019-11-23 01:56 | NUR ---
DR. COONEY AT BEDSIDE. UPDATED ON PT'S CURRENT STATUS. ALL QUESTIONS/CONCERNS ADDRESSED. NO NEW ORDERS RECEIVED
[2019-11-23 05:22] LABS: PLATELET COUNT 142 x10^3mcL (130-400)
[2019-11-23 05:34] LABS: RED CELL DISTRIBUTION WIDTH 22.4 % (11.5-14.5)
[2019-11-23 05:36] LABS: CALCIUM 7.6 mg/dL (8.5-10.1); CARBON DIOXIDE 27.7 mmol/L (21-32); MAGNESIUM 1.6 mg/dL (1.8-2.4); POTASSIUM SERUM 3.6 mmol/L (3.5-5.1)
[2019-11-23 05:39] LABS: CREATININE SERUM 4.1 mg/dL (0.6-1.0)
[2019-11-23 06:17] LABS: ATYPICAL LYMPH 2 %; BAND NEUTROPHIL 5 % (0-10); PLATELET MORPHOLOGY PLATELETS DECREASED; SEGMENTED NEUTROPHILS 85 % (37-75); rbc morphology (normal/abnorm) ABNORMAL (NORMAL)
--- NOTE | 2019-11-23 07:05 | NUR ---
REPORT GIVEN TO KIYA BRUNER FOR CONTINUITY OF CARE. ALL QUESTIONS/CONCERNS ADDRESSED. ENDORSING ALL CARE
--- NOTE | 2019-11-23 17:03 | NUR ---
DR. GUTHRIE AT BEDSIDE FOR ROUNDS, UPDATE PROVIDED BY NURSING. STATED ABG FOR 11/14/19. ORDERS NOTED AND CARRIED OUT.
--- NOTE | 2019-11-23 19:02 | NUR ---
REPORT AT THIS TIME GIVEN TO ZOHREH DIAZ. ALL QUESTIONS ANSWERED.
--- NOTE | 2019-11-23 19:05 | NUR ---
RECEIVED REPORT FROM KIYA BRUNER. PT ATTACHED TO FULL ASSISTANT COMMUNITY MANAGER/CONT PULSE OXIMETRY. INTUBATED TO VENT INTACT. BED IN LOW POSITION. CALL LIGHT IN REACH. HOB ELEVATED 30 DEGREES. FAMILY AT BEDSIDE. SEE SHIFT ASSESSMENT FOR FURTHER DETAILS.
[2019-11-24] VITALS (18 sets, daily range): BP systolic 92–138; BP diastolic 46–67
--- NOTE | 2019-11-24 01:30 | NUR ---
ETT REMAINS INTACT/SECURED, NO CHANGES NOTED TO VENT SETTINGS. BREATHING IS E/U. NO S/S OF ACUTE DISTRESS NOTED. PT ATTACHED TO FULL RADIATION CONTROL WORKER/CONT PULSE OX MONITORING. BED IN LOW POSITION. CALL LIGHT IN REACH. WILL CONT TO MONITOR
--- NOTE | 2019-11-24 05:30 | NUR ---
FULL BED BATH PROVIDED WITH TUNDE WIPES. GOWN, LINENS, AND CHUCKS CHANGES. PERICARE AND ORAL CARE PROVIDED. OPEN WOUND NOTED TO SACRAL AREA MEASURING 2 CM X 1 CM, OPTIFIOM IN PLACE. ISOGEL MATTRESS IN PLACE. PICTURES TAKEN AND PLACED IN THE CHART.
[2019-11-24 05:47] LABS: PLATELET COUNT 154 x10^3mcL (130-400)
[2019-11-24 05:49] LABS: RED CELL DISTRIBUTION WIDTH 22.1 % (11.5-14.5)
[2019-11-24 06:07] LABS: ATYPICAL LYMPH 2 %; BAND NEUTROPHIL 5 % (0-10); MONOCYTE 5 % (0-7); PLATELET MORPHOLOGY PLATELETS NORMAL; SEGMENTED NEUTROPHILS 85 % (37-75); rbc morphology (normal/abnorm) ABNORMAL (NORMAL)
[2019-11-24 06:39] LABS: CALCIUM 7.9 mg/dL (8.5-10.1); CARBON DIOXIDE 24.1 mmol/L (21-32); POTASSIUM SERUM 3.5 mmol/L (3.5-5.1)
[2019-11-24 06:50] LABS: CREATININE SERUM 4.5 mg/dL (0.6-1.0)
--- NOTE | 2019-11-24 07:07 | NUR ---
REPORT GIVEN TO KIYA BRUNRE FOR CONTINUITY OF CARE. ALL QUESTIONS/CONCERNS ADDRESSED. ENDORSING ALL CARE
--- NOTE | 2019-11-24 08:29 | NUR ---
BEGAN CPAP TRIAL PS 14 PEEP 8. WILL CONTINUE TO MONITOR.
--- NOTE | 2019-11-24 10:09 | NUR ---
PLACED PATIENT BACK ONTO AC/VC VENT SETTINGS POST ABG RESULTS. ACVC 350 RATE 20 PEEP 8 FIO2 30%. WILL CONTINUE TO MONITOR.
--- NOTE | 2019-11-24 14:55 | NUR ---
TUBE FEEDINGS CHANGED AT THIS TIME. NO PROBLEMS NOTED. WILL CONTINUE TO MONITOR.
--- NOTE | 2019-11-24 15:17 | NUR ---
Follow-up Nutrition Assessment- Ruthie Stewart ICU-1 Dx: PNA, Elevated troponin, hypotension Labs: (11/24) Na:134L, BH, BUN:59H, Cr:4.5H, Ca:7.9L, WBC:18.5H, H/H:8.2/26L Meds: Albuminar, C Colace, Diflucan, Folic acid, Humulin PRN, Lactinex, Lipitor, Mg oxide, Merrem, Procrit, Reglan, Zofran, Vancomycin, Current Nutrition Support: Nepro at 40ml/hr, FWF:50ml q 4hr via NGT GRV: (11/24) 0ml TF intake: (11/23) 1033ml (11/24) 959ml I/O: (11/03) 1638/1400(+238ml) (11/24) 1701/200(+1501ml) Weights: (11/15) 63kg (11/20) 65kg possibly due to dialysis (11/24) 61kg Skin: skin tear noted to sacral area and right buttock wound vac Edema: +3 to BUE, +1 BLE Last BM: 11/22 Per progress note 11/20, pt is lethargic and noted to be intubated. Pt is on IV abx. Wound vac continues to be in place. Pt now has a tunnel cath for HD. PD catheter is still in place, however, not being used. During visit, pt was undergoing HD. Per master certified rv technician, pt is tolerating TF with minimal GRV. Estimated Nutritional Needs based on current body weight:63.5kg Energy: 1905-2220kcal/day (30-35kcla/kg for wound healing and dialysis) Protein: 76-89g/day (1.2-1.4g/day for wound healing and dialysis) Fluid: 1-1.2L +output for dialysis Nutrition Diagnosis 1. Increased nutrient needs related to increased metabolic demands as evidenced by wounds (ongoing) Intervention/RDN Recommendation(s): 2. Recommend Nepro at 45ml/hr. to provide 1944kcal, 87g protein and 785ml fluid. This meets 100% caloric and protein needs. Monitor/Evaluate Goal: PO intakes to meet at least 75% of estimated needs with acceptable tolerance and wound healing within 2-3 days. Monitor: PO intakes, Labs, GI function, Skin integrity, Weights. F/U in 2-3 days as high risk 11/25-
--- NOTE | 2019-11-24 15:18 | NUR ---
2. Recommend Nepro at 45ml/hr. to provide 1944kcal, 87g protein and 785ml fluid. This meets 100% caloric and protein needs.
--- NOTE | 2019-11-24 19:00 | NUR ---
DR COONEY AT BEDSIDE ALL UPDATES GIVEN, NO NEW ORDERS AT THIS TIME.
--- NOTE | 2019-11-24 19:06 | NUR ---
REPORT AT THIS TIME GIVEN TO ZOHREH COLLADO ALL QUESTIONS ANSWERED.
--- NOTE | 2019-11-24 19:10 | NUR ---
RECEVIED PT FROM KIYA BRUNER. PT ON FULL VASCULAR NEUROLOGIST AND CONTINUOUS PULSE OXIMETRY. PT INTUBATED TO VENT INTACT. HOB ELEVATED 30 DEGREES, CALL LIGHT WITHIN REACH, BED AT LOWEST SETTING. SEE NURSING SHIFT ASSESSMENT FOR MORE DETAILS.
[2019-11-25] VITALS (19 sets, daily range): BP systolic 101–136; BP diastolic 48–64
--- NOTE | 2019-11-25 04:40 | NUR ---
FULL BED BATH PROVIDED WITH TUNDE CHG WIPES. GOWN, LINENS, AND CHUCKS CHANGED. PERICARE AND ORAL CARE PROVIDED. CENTRAL LINE DRESSING CHANGED TO LIJ, NO REDNESS OR DRAINAGE NOTED TO SITE, NO S/S OF INFECTION, USED STERILE TECHNIQUE, DRESSING PLACED CDI.
[2019-11-25 06:31] LABS: CARBON DIOXIDE 26.1 mmol/L (21-32); CREATININE SERUM 3.5 mg/dL (0.6-1.0); POTASSIUM SERUM 3.3 mmol/L (3.5-5.1)
[2019-11-25 06:32] LABS: CALCIUM 7.7 mg/dL (8.5-10.1); MAGNESIUM 1.8 mg/dL (1.8-2.4)
[2019-11-25 06:42] LABS: PLATELET COUNT 123 x10^3mcL (130-400); RED CELL DISTRIBUTION WIDTH 22.9 % (11.5-14.5)
--- NOTE | 2019-11-25 07:10 | NUR ---
REPORT RECEIVED FROM HEAVEN BRUNER. ALL CARE ASSUMED AT THIS TIME.
--- NOTE | 2019-11-25 07:15 | NUR ---
GAVE REPORT TO ASHA BRUNER. UPDATES PROVIDED, QUESTIONS ANSWERED. ENDORSED CARE.
--- NOTE | 2019-11-25 07:50 | NUR ---
DR. RAMOS AT BEDSIDE. UPDATES PROVIDED, QUESTIONS ANSWERED. DR. RAMOS REQUESTED PLACING THE PT ON CPAP FOR 1 HR FOR EXERCISE AND TO OBTAIN ABG AFTER CPAP (RT VIVIAN AWARE); SHE ALSO SUGGESTED SETTING UP AN APPOINTMENT WITH HERSELF AND THE WHEN HE'S AVAILABLE TO DISCUSS HOSPICE D/T PT'S POOR PROGNOSIS. WILL CARRY OUT NEW ORDERS AND ENDORSE TO ONCOMING RN.
--- NOTE | 2019-11-25 07:59 | NUR ---
PT PLACED ON CPAP 15/5 30% FIO2 BY VIVIAN SILVA WILL CONTINUE TO MONITOR.
--- NOTE | 2019-11-25 11:07 | NUR ---
DR. PURDY AT BEDSIDE, PRIMARY RN PRESENT. UPDATES PROVIDED, QUESTIONS ANSWERED. NEW ORDERS RECEIVED FOR FERRLECIT, D/C COLACE, D/C REGLAN, OBTAIN STOOL CX FOR C. DIFF, MIDODRINE DECREASED TO 5 MG FROM 10 MG PER DOSE, SOLU-CORTEF DECREASED TO 50 MG/DOSE FROM 100 MG/DOSE, AND TO HAVE T4 & TSH LABS CHECKED. WILL CARRY OUT NEW ORDERS.
[2019-11-25 11:14] LABS: BAND NEUTROPHIL 0 % (0-10); BASOPHIL 0 % (0-2); MONOCYTE 1 % (0-7); SEGMENTED NEUTROPHILS 98 % (37-75)
[2019-11-25 11:15] LABS: PLATELET MORPHOLOGY PLATELETS DECREASED; rbc morphology (normal/abnorm) ABNORMAL (NORMAL)
--- NOTE | 2019-11-25 11:43 | NUR ---
DR. RAMOS TO MEET WITH OF PT AT 1200 TOMORROW 11/26.
--- NOTE | 2019-11-25 12:52 | NUR ---
PT PLACED BACK ON A/C FROM CPAP. PT TOLERATED CPAP FOR 4 HOURS.
[2019-11-25 13:46] LABS: FREE T4 0.53 ng/dL (0.76-1.46)
--- NOTE | 2019-11-25 18:00 | NUR ---
, SON, DAUGHTER AT BEDSIDE.
--- NOTE | 2019-11-25 19:15 | NUR ---
RECEIVED REPORT FROM ASHA BRUNER. WILL RESUME CARE.
--- NOTE | 2019-11-25 19:20 | NUR ---
RECEIVED PT INTUBATED WITH NO SEDATION. PT IS RESPONSIVE TO VERBAL STIMULI. R PUPIL 3MM AND L PUPIL 2MM SLUGGISH. BILATERAL SCLERAL EDEMA NOTED. 7.5 ETT AT 21CM LL INTACT AND SECURED. ON VENT VCV-AC MODE WITH SETTINGS OF VT 350, FIO2 30%, R 20, PEEP 5. BREATHING E/U. LUNG SOUNDS DIMINISHED BILATERALLY. S1S2 AUSCULTATED. NO S/SX OF ANY PAIN AT THIS TIME. CAP REFIL <3 SEC. PULSES PALPABLE. +2 EDEMA TO BUE'S. GENERALIZED WEAKNESS. JOINTS INTACT. ON NEPRO AT 40CC/HR WITH FWF OF 50 Q4HRS WITH 10CC OF RESIDUAL NOTED. PLACEMENT CHECKED. R HIP/BUTTOCK WOUND WITH WOUND VAC. SACRAL SKIN TEAR WITH OPTIFOAM IN PLACE. FLEXISEAL IN PLACE DRAINING VIA GRAVITY LOOSE BROWN STOOL. BS ACTIVE X 4. NO N/V. PT ANURIC, RECEIVES HD. BED IN LOW POSITION. WILL CONTINUE TO MONITOR.
--- NOTE | 2019-11-25 19:23 | NUR ---
REPORT GIVEN TO SOFIYA BRUNER. ALL CARES ENDORSED AT THIS TIME.
--- NOTE | 2019-11-25 22:15 | NUR ---
DR. COONEY AT BEDSIDE ASSESSING PT. UPDATES PROVIDED. NO NEW ORDERS AT THIS TIME.
[2019-11-26] VITALS (16 sets, daily range): BP systolic 80–145; BP diastolic 41–73
--- NOTE | 2019-11-26 04:30 | NUR ---
PT CLEANED. ALL LINENS, CHUCKS, AND GOWN CHANGED. 50CC OF BROWN LOOSE STOOL OUTPUT IN FLEXISEAL. PT OFFLOADED ON PILLOWS IN A SUPINE POSITION. BED IN LOW POSITION.
[2019-11-26 05:29] LABS: BASOPHIL % 0.1 % (0-2); PLATELET COUNT 140 x10^3mcL (130-400)
[2019-11-26 05:33] LABS: RED CELL DISTRIBUTION WIDTH 24.4 % (11.5-14.5)
[2019-11-26 05:43] LABS: CALCIUM 7.9 mg/dL (8.5-10.1); CARBON DIOXIDE 24.6 mmol/L (21-32); POTASSIUM SERUM 3.1 mmol/L (3.5-5.1)
[2019-11-26 05:50] LABS: CREATININE SERUM 4.1 mg/dL (0.6-1.0)
--- NOTE | 2019-11-26 06:23 | NUR ---
DR. GRIJALVA MADE AWARE OF LAB VALUE K+ 3.1.
--- NOTE | 2019-11-26 07:22 | NUR ---
REPORT RECEIVED FROM SOFIYA BRUNER. ALL CARE ASSUMED AT THIS TIME.
--- NOTE | 2019-11-26 07:45 | NUR ---
PT HYPOTENSIVE, MAP'S IN 50'S. DRIVING INSTRUCTOR FERNANDO AWARE.
--- NOTE | 2019-11-26 08:00 | NUR ---
PT PLACED ON CPAP 15/5 30% FIO2 BY MELL SILVA WILL CONTINUE TO MONITOR.
--- NOTE | 2019-11-26 08:30 | NUR ---
FERNANDO FLIGHT TEST SUPERVISOR AT BEDSIDE. UPDATES PROVIDED, QUESTIONS ANSWERED. MIDODRINE DOSE INCREASED TO 10 MG/DOSE FROM 5MG/DOSE D/T HYPOTENSION. NO FURTHER ORDERS RECEIVED. WILL CONTINUE TO MONITOR.
--- NOTE | 2019-11-26 10:50 | NUR ---
WOUND CARE RE-EVALUATION: PRESSURE ULCER RIGHT TROCHANTER, AND SACRALCOCCYX -SACRALCOCCYX PRESSURE ULCER STAGE 2 2X1X0.1CM WOUND BED 100% GRANULATING TISSUE, WOUND BED MOIST, NO ODOR, CLARIBEL WOUND SKIN DENUDED, WITH REDNESS INDICATED FURTHER DAMAGED -LEFT UPPER ARM SKIN TEAR 2X1.5 WITH SUPERFICIAL DEPTH,WOUND BED IS MOIST CLEAN NO ODOR -RIGHT UPPER ARM +2 EDEMA WEEPING ,SKIN INTACT -RIGHT TROCHANTER PRESSURE ULCER 9X11CM, DEPTH IS UTD WOUND BED IS 10% SCATTERED PINK GRANULATING TISSUE, 90% SOFT YELLOW SLOUGH TO WOUND BED AND WOUND EDGE, IRREGULAR WOUND SHAPE.CLARIBEL WOUND SKIN TO 3 O'CLOCK DIRECTION PREVIOUS DEBRIDED WOUND PRESSURE ULCER WITH 3.5X4CM AND DEPTH UTD WOUND BED IS SOFT YELLOW SLOUGH, DEPTH UTD, NO ODOR.OBSERVE 150 ML BROWN DRAINAGE TO CANISTERDR. TWO WOUNDS EDGE MAY MERGED TOGETHER IN SHORT PERIOD OF TIME. RECOMMENED FOR RIGHT TROCHANTER DEBRIDEMENT AND NO WOUND VAC TREATMENT. WAS PAGED BY CHARGE NURSE INFORMED OF ABOVE INFORMATION. MOIST TO DRY DRESSING APPLY AT THIS TIME. POC DISCUSSED WITH PRIMARY RN. -CLEANSE SACRALCOCCYX WITH NS, PAT DRY APPLY Z-GUARD AND OPTIFOAM QD AND PRN IF SOILING -CLEANSE LEFT ARM SKIN TEAR WITH NS, PAT DRY, APPLY VERSATEL DRESSING Q5DAYS AND PRN IF SOILING MIRANDA KING , NOTIFIED ABOVE INFORMATION, ORDERS WITH NO WOUND VAC DRESSING APPLICATION NOW.
--- NOTE | 2019-11-26 10:53 | NUR ---
RECEIVED CALL FROM DR. ODONNELL. UPDATES PROVIDED, QUESTIONS ANSWERED. DR. ODONNELL WOULD LIKE THE PT TO BE DIALYZED TODAY WITH ALBUMIN, RN TO CALL DIALYSIS COMPANY AND HAVE THEM CALL HIM FOR ORDER. [facility]
--- NOTE | 2019-11-26 10:58 | NUR ---
RECEIVED CALL FROM DR. ODONNELL AT THIS TIME, REQUESTED INCREASING SYNTHROID DOSE TO 50 MCG PER DOSE FROM 25 MCG PER DOSE. WILL UPDATE ORDER.
--- NOTE | 2019-11-26 11:14 | NUR ---
MISA ASSIGNMENT MANAGER AT BEDSIDE. WOUND VAC REMOVED AT THIS TIME FROM RIGHT HIP WOUND, WOUND CLEANED WITH GAUZE & SALINE, NEW PHOTO TAKEN AND PLACED IN CHART. MISA STATED THAT SHE DOES NOT THINK THE WOUND VAC SHOULD BE PLACED AT THIS TIME D/T MARGINS APPEARING TO HAVE NECROTIC TISSUE INDICATING POSSIBLE DEBRIDEMENT, AND THAT SHE WOULD LIKE SERA CONSULTED TO SEE THE WOUND TO GET HIS OPINION. WILL CONTACT DR. ZAMORA AND CONTINUE TO MONITOR.
--- NOTE | 2019-11-26 11:43 | NUR ---
PT PLACED BACK ON A/C VCV ON THE VENT AT THIS TIME BY MLEL ADAMS. VT 350, RATE 20, FIO2 30, PEEP 5.
--- NOTE | 2019-11-26 12:00 | NUR ---
WOUND CARE RE-EVALUATION: PRESSURE ULCER RIGHT TROCHANTER RIGHT TROCHANTER PRESSURE ULCER 9X11CM, DEPTH IS UTD WOUND BED IS 10% SCATTERED PINK GRANULATING TISSUE, 90% SOFT YELLOW SLOUGH TO WOUND BED AND WOUND EDGE, IRREGULAR WOUND SHAPE.CLARIBEL WOUND SKIN TO 3 O'CLOCK DIRECTION PREVIOUS DEBRIDED WOUND PRESSURE ULCER WITH 3.5X4CM AND DEPTH UTD WOUND BED IS SOFT YELLOW SLOUGH, DEPTH UTD, NO ODOR.OBSERVE 150 ML BROWN DRAINAGE TO CANISTERDR. RECOMMENED FOR DEBRIDEMENT AND NO WOUND VAC TREATMENT. TWO WOUNDS EDGE MAY MERGED TOGETHER IN SHORT PERIOD OF TIME. WAS PAGED BY CHARGE NURSE INFORMED OF ABOVE INFORMATION. MOIST TO DRY DRESSING APPLY AT THIS TIME. POC DISCUSSED WITH PRIMARY RN.
--- NOTE | 2019-11-26 12:20 | NUR ---
FAMILY MEETING HELD WITH PT'S & DAUGHTER AT THIS TIME. PRIMARY RN, DR. RAMOS, AND CAUSTIC LIQUOR MAKER FIDENCIO ALSO PRESENT. PER THE PT'S , HE STATED THAT SHE'S A STRONG PERSON AND WOULD CONTINUE TO WANT EVERYTHING DONE MEDICALLY TO SUSTAIN HER. DR. RAMOS TOLD THE FAMILY THAT THE PATIENT WOULD EVENTUALLY NEED A TRACHEOSTOMY DUE TO THE RISKS ASSOCIATED WITH HAVING THE ENDOTRACHEAL TUBE, AND WOULD EVENTUALLY NEED A PEG TUBE FOR NUTRITION DUE TO THE RISKS ASSOCIATED WITH THE NASOGASTRIC TUBE. THE FAMILY VERBALIZED UNDERSTANDING OF THIS. DR. RAMOS ALSO MENTIONED THAT BECAUSE SHE IS CONTRACTED WITH [employer], THAT [facility] MIGHT WANT TO DO THE AFOREMENTIONED PROCEDURES THERE RATHER THAN HERE. AGAIN, THE FAMILY VERBALIZED UNDERSTANDING. DR. RAMOS ADDITIONALLY TOLD THE FAMILY THAT THE PATIENT MAY NEED TO GO TO A [facility] FACILITY BEFORE GOING HOME FOR CONTINUITY OF CARE AND HELP WITH TRANSITIONING/REHABILITATIVE THERAPY. WILL CONTINUE TO PROVIDE CARE AND MONITOR AT THIS TIME.
--- NOTE | 2019-11-26 13:00 | NUR ---
DR. RAMOS AT BEDSIDE. UPDATES PROVIDED, QUESTIONS ANSWERED. SHE REQUESTED GIVING THE PT A 250 ML BOLUS OF NS PRIOR TO DIALYSIS IF THE PT'S BP IS PERSISTENTLY LOW, AND ADDING CVP MONITORING. SHE ALSO SUGGESTED ADDING LEVOPHED IF DURING HD THE PT'S BP REMAINS LOW. WILL ENTER AND IMPLEMENT ORDERS APPROPRIATE.
--- NOTE | 2019-11-26 14:25 | NUR ---
HEMODIALYSIS STARTED AT THIS TIME BY ADAMA BRUNER. WILL CONTINUE TO MONITOR.
--- NOTE | 2019-11-26 14:26 | NUR ---
SPOKE TO FAMILY MEMBERS ALL QUESTIONS ANSWERED, ALL COMORBIDITIES RELATED TO DELAY WOUND HEALING AND FURTHER SKIN BREAKS EXPLAINED, THEY VERBALIZES UNDERSTANDING.
--- NOTE | 2019-11-26 15:11 | NUR ---
NIBP 74/40, MAP 48. LEVOPHED DRIP TITRATED UP TO 10 MCG/MIN. ADAMA HD NURSE AWARE. WILL CONTINUE TO MONITOR.
--- NOTE | 2019-11-26 15:44 | NUR ---
NIBP 80/46, MAP 57. LEVOPHED DRIP TITRATED UP TO 12 MCG/MIN. ADAMA, HD NURSE MADE AWARE. WILL CONTINUE TO MONITOR.
--- NOTE | 2019-11-26 16:48 | NUR ---
LEVOPHED GTT TITRATED TO 16 MCG/MIN FOR MAP 49, FROM 14 MCG/MIN.
--- NOTE | 2019-11-26 16:56 | NUR ---
MAP 55, LEVOPHED TITRATED TO 18 MCG/MIN FROM 16 MCG/MIN.
--- NOTE | 2019-11-26 17:15 | NUR ---
DR. RAMOS CALLED BACK RETURNING PAGE. UPDATES PROVIDED ON LEVOPHED GTT BEING AT 16 MCG/MIN. DR. RAMOS RECOMMENDED GIVING PT 5% ALBUMIN 250 ML. WILL ENTER ORDER AND CARRY OUT.
--- NOTE | 2019-11-26 17:25 | NUR ---
PT NOT RESPONDING AT THIS TIME TO VERBAL, TOUCH, OR PAINFUL STIMULUS. FERNANDO BOLT HEADER AWARE, FERNANDO STATED SHE IS GOING TO MAKE DR. RAMOS AWARE RIGHT NOW. AWAITING ORDERS.
--- NOTE | 2019-11-26 17:36 | NUR ---
CALL RECEIVED FROM DR. RAMOS AT THIS TIME. SHE RECOMMENDED GOING DOWN ON THE LEVOPHED GTT TOLERATED, ADDING 1X DOSE OF 100 MG SOLUCORTEF IVP NOW, INCREASING SOLUCORTEF DOSE FROM 25 MG Q6 TO 100 MG Q6H, AND STARTING INSULIN GTT IF BLOOD SUGAR GOES ABOVE 400 WITH ACCUCHECKS Q1H. WILL ENTER NEW ORDERS AND CONTINUE TO MONITOR.
--- NOTE | 2019-11-26 17:42 | NUR ---
LEVOPHED GTT TITRATED TO 12 MCG/MIN FROM 16 MCG/MIN FOR BP 139/66 (100).
--- NOTE | 2019-11-26 17:46 | NUR ---
NIBP 129/61, MAP 83. LEVOPHED DRIP TITRATED DOWN TO 10 MCG/MIN. WILL CONTINUE TO MONITOR.
--- NOTE | 2019-11-26 18:00 | NUR ---
NIBP 127/61, MAP 85, LEVOPHED DRIP TITRATED DOWN TO 8 MCG/MIN. WILL CONTINUE TO MONITOR.
--- NOTE | 2019-11-26 18:15 | NUR ---
PT RESPONDING AT THIS TIME TO VERBAL AND TOUCH STIMULUS BY ATTEMPTING TO OPEN EYES.
--- NOTE | 2019-11-26 18:15 | NUR ---
NIBP 130/57, MAP 88. LEVOPHED DRIP TITRATED DOWN TO 6 MCG/MIN. WILL CONTINUE TO MONITOR.
--- NOTE | 2019-11-26 18:40 | NUR ---
AND DAUGHTER AT BEDSIDE, UPDATED ON UNRESPONSIVENESS DURING HEMODIALYSIS. BOTH AGREED TO CONTINUE TO DO EVERYTHING MEDICALLY SUPPORTIVE FOR THE PT.
--- NOTE | 2019-11-26 19:05 | NUR ---
RECEIVED REPORT FROM ASHA BRUNER. ASSUMING ALL CARE
--- NOTE | 2019-11-26 19:30 | NUR ---
RECEIVED PT LAYING IN BED. PT IS INTUBATED AND ON NO SEDATION. PT RESPONDS TO PAINFUL STIMULI. PT ATTEMPTS TO OPEN EYES ON STIMULATION, UNABLE TO SQUEEZE HANDS OR FOLLOW COMMANDS. PERRLA NOTED BILAT, SLUGGISH 3 MM. NO GAG REFLEX NOTED WHEN SUCTIONED. 7.5 ETT INTACT/SECURED, 21 CM @ LL. LIJ CVC INTACT/SECURED, DRESSING CDI. LEFT NGT INTACT/SECURED. BREATHING IS E/U ON VENT. VENT SETTINGS: VCV AC MODE, RATE 20, VT 350, FIO2 40%, PEEP 5. LUNGS SOUND CLEAR TO BUL AND DIMIN TO BLL. SYMMETRICAL CHEST EXPANSION NOTED. S1/S2 HEART SOUNDS AUSCULTATED. CHEST WALL EQUAL AND SYMMETRICAL. NO S/S OF CP NOTED. HR 82, NIBP 143/61 MAP 88. LEVOPHED GTT INFUSING @ 6 MCG/MIN. PT ON NEPRO TF INFUSING @ 40 ML/HR WITH 50 CC FWF Q4H. GRV=20, REPLACED. TOLERATING WELL. NO S/S OF N/V NOTED. ABD IS SOFT, FLAT, NONTENDER TO PALPATION. BOWEL SOUNDS ACTIVE X4 QUADRANTS. FLEXISEAL INTACT/SECURED, DRAINING VIA GRAVITY WITH LOOSE DARK BROWN COLORED STOOL. PT IS ANURIC. RIGHT UPPER CHEST CLYDE CATH IN PLACE WITH DRESSING CDI. PERITONEAL DIALYSIS CATH IN PLACE TO [facility], NOT IN USE. RIGHT HIP/BUTTOCK WOUND PACKED BY WOUND CARE NURSE WITH DRESSING CDI. SKIN TEAR NOTED TO LUE WITH VERSATILE DRESSING IN PLACE. SKIN TEAR TO SACRAL AREA WITH OPTIFOAM IN PLACE. BED IN LOW POSITION. CALL LIGHT IN REACH. WILL CONT TO MONITOR
--- NOTE | 2019-11-26 19:45 | NUR ---
NIBP 143/68 MAP 93. LEVOPHED GTT TITRATED TO 4 MCG/MIN
--- NOTE | 2019-11-26 20:30 | NUR ---
NIBP 132/53 MAP 82. LEVOPHED GTT TITRATED TO 2 MCG/MIN
--- NOTE | 2019-11-26 20:45 | NUR ---
NIBP 140/60 MAP 86. LEVOPHED GTT TITRATED OFF AT THIS TIME
--- NOTE | 2019-11-26 21:00 | NUR ---
NIBP 87/40 MAP 53. LEVOPHED GTT RESUMED AT 1 MCG/MIN
--- NOTE | 2019-11-26 21:45 | NUR ---
NIBP 142/61 MAP 88. LEVOPHED GTT TURNED OFF
--- NOTE | 2019-11-26 23:15 | NUR ---
DR. COONEY AT BEDSIDE. UPDATED ON PT'S CURRENT STATUS. ALL QUESTIONS/CONCERNS ADDRESSED. NO NEW ORDERS RECEIVED AT THIS TIME.
[2019-11-27] VITALS (18 sets, daily range): BP systolic 87–141; BP diastolic 47–69
--- NOTE | 2019-11-27 03:15 | NUR ---
NIBP 100/47 MAP 63. LEVOPHED GTT RESUMED AT 0.5 MCG/MIN
--- NOTE | 2019-11-27 05:17 | NUR ---
DR. GRIJALVA MADE AWARE MOST RECENT BLOOD SUGAR READ 423. MADE AWARE OF DR. RAMOS'S ORDER TO START INSULIN GTT IF BS IS >400. PER DR. GRIJALVA, ADMINISTER 10 UNITS OF REGULAR INSULIN SUB Q NOW AND CHECK BLOOS SUGAR IN 1 HR. IF BLOOD SUGAR IS GREATER THAN 400, WILL START INSULIN GTT. WILL CARRY OUT ORDER
--- NOTE | 2019-11-27 05:45 | NUR ---
NIBP 90/49 MAP 59. LEVOPHED GTT TITRATED TO 1 MCG/MIN
[2019-11-27 06:03] LABS: PLATELET COUNT 135 x10^3mcL (130-400)
[2019-11-27 06:11] LABS: BASOPHIL % 0 % (0-2); RED CELL DISTRIBUTION WIDTH 25.7 % (11.5-14.5)
[2019-11-27 06:14] LABS: CALCIUM 7.8 mg/dL (8.5-10.1); CARBON DIOXIDE 28.5 mmol/L (21-32); CREATININE SERUM 2.7 mg/dL (0.6-1.0); MAGNESIUM 1.7 mg/dL (1.8-2.4); PHOSPHOROUS 2.1 mg/dL (2.5-4.9); POTASSIUM SERUM 3.3 mmol/L (3.5-5.1)
--- NOTE | 2019-11-27 06:33 | NUR ---
PT'S BLOOD SUGAR POST ADMINISTRATION OF 10 UNITS REGULAR INSULIN: 394. DR. GRIJALVA PAGED TO PROVIDE AN UPDATE. WILL AWAIT CALL BACK.
--- NOTE | 2019-11-27 07:17 | NUR ---
BP 128/66, AND MAP 101. LEVOPHED TITRATED FROM 1MCG/MIN DOWN TO 0.5MCG/MIN.
--- NOTE | 2019-11-27 07:30 | NUR ---
PATIENT REMAINS INTUBATED WITH NO SEDATION. PATIENT OPENS HER EYES TO TACTILE STIMULI BUT UNABLE TO FOLLOW ANY SIMPLE COMMANDS AT THIS TIME. JOSHUA PUPILS WITH SLUGGISH REACTION TO LIGHT. NGT IS SECURED TO LEFT NARE AND CONNECTED TO TUBE FEEDING WITH NEPRO AT 40ML/HR AND FREE WATER FLUSHED 50ML/Q4HR. NGT PLACEMENT IS VERIFIED WITH SOME AIR BOLUS. NO GASTRIC RESIDUAL NOTED AT THIS TIME. ETT 7.[address] AND SECURED AT 22CM AT LIPLINE. ETT TO VENT VIA VCV/AC MODE: FIO2 35%, RATE 20, VT 350, AND PEEP 5. CVC AT LIJ WITH DRESSING INTACT. TELE # 1 SHOWS NORMAL SINUS RHYTHMS. PATIENT IS ON LEVOPHED AT 0.5MCG/MIN AT THIS TIME. OTHER IV HEPLOCKS AT LAC AND RAC. CLYDE CATH TO RIGHT UPPER CHEST WITH DRESSING INTACT. PERITONEAL PORT TO LOW ABDOMEN WITH DRESSING INTACT. FLEXISEAL IN PLACE AND DRAINING DARK BROWN LIQUID STOOL. ISOGEL MATTRESS IN USE. BED IS AT LOWEST POSITION. HEAD OF BED ELEVATED. EXTREMITIES ELEVATED.
--- NOTE | 2019-11-27 08:55 | NUR ---
RT MONTE IS AT BEDSIDE PLACING THE PATIENT ON CPAP MODE: FIO2 35%, PEEP 5 AND PVS 12.
--- NOTE | 2019-11-27 09:02 | NUR ---
BP 131/62, MAP 85. LEVOPHED TURNED OFF.
--- NOTE | 2019-11-27 09:05 | NUR ---
FERNANDO, CIVIL DEFENSE DIRECTOR IS AT BEDSIDE EXAMING THE PATIENT; UPDATE PROVIDED TO FERNANDO.
--- NOTE | 2019-11-27 11:58 | NUR ---
DR. RAMOS WAS INFORMED THAT THE BS 439. DR. RAMOS ORDERED START REG INSULIN DRIP PER SLIDING SCALE AND CHECK BS Q1HR. WILL CARRY OUT THE ORDER.
--- NOTE | 2019-11-27 12:41 | NUR ---
INSULIN DRIP WAS INITIATED AT 5UNITS/HR PER SLIDING SCALE WITH WITNESS OF THE CHARGE NURSE.
--- NOTE | 2019-11-27 16:50 | NUR ---
BP 81/40 (53), AND RECHECKED BP 78/39 (46). LEVOPHED RESUMED AT 1MCG/MIN.
--- NOTE | 2019-11-27 17:05 | NUR ---
BP 109/51 AND MAP 70; LEVOPHED TITRATED FROM 1MCG/MIN DOWN TO 0.5MCG/MIN.
--- NOTE | 2019-11-27 17:36 | NUR ---
RT MONTE SWITCHES THE VENT SETTING BACK TO VCV/AC PREVIOUS MODE: FIO2 35%, RATE 20, VT 350, PEEP 5.
--- NOTE | 2019-11-27 17:59 | NUR ---
PATIENT WAS GIVEN A BATH; OPTIFOAM AT SACRAL AREA CHANGED. GOWN AND LINEN CHANGED.
--- NOTE | 2019-11-27 18:02 | NUR ---
BP 144/64, AND MAP 100. LEVOPHED IS TURNED OFF.
--- NOTE | 2019-11-27 18:55 | NUR ---
BS CHECKED VIA FINGER STICK WAS 292; REGULAR INSULIN DRIP WAS TITRATED FROM 4U/HR DOWN TO 3UNITS/HR BASED ON INSULIN DRIP SLIDING SCALE. PATIENT REMAINS ON VENT VIA VCV/AC MODE: FIO2 35%, RATE 20, VT 350, AND PEEP 5. PATIENT IS NOT ON ANY SEDATION THROUGHOUT THE SHIFT.
--- NOTE | 2019-11-27 19:00 | NUR ---
RECEIVED REPORT FROM GLEN BRUNER. ASSUMING ALL CARE
--- NOTE | 2019-11-27 19:25 | NUR ---
RECEIVED PT LAYING IN BED. PT IS INTUBATED AND ON NO SEDATION. PT RESPONDS TO TACTILE STIMULI. PT ABLE TO FOLLOW SIMPLE COMMANDS. PERRLA NOTED, SLUGGISH 3 MM BILAT. 7.5 ETT INTACT/SECURED, 22 CM @ LL. LIJ CVC INTACT/SECURED. LEFT NGT INTACT/SECURED. SCLERA EDEMA NOTED BILAT. BREATHING IS E/U ON VENT. VENT SETTINGS: VCV AC MODE, RATE 20, VT 350, FIO2 35%, PEEP 5. LUNGS SOUND CLEAR TO BUL AND DIMIN TO BLL. SYMMETRICAL CHEST EXPANSION NOTED. LAC AND RAC IV'S PATENT/SALINE LOCKED. SCD IN PLACE. INSULIN GTT INFUSING @ 3 UNITS/HR. PT ON NEPRO TF INFUSING @ 40 ML/HR WITH 50 CC FWF Q4H. GRV=15, REPLACED. FLEXISEAL INTACT/SECURED, DRAINING VIA GRAVITY WITH WATERY DARK BROWN COLORED STOOL. PT ANURIC. RIGHT UPPER CHEST CLYDE CATH IN PLACE WITH DRESSING CDI. PERITONEAL DIALYSIS CATH IN PLACE TO [facility], NOT IN USE. RIGHT HIP/BUTTOCK WOUND WITH DRESSING IN PLACE, CDI. SKIN TEAR NOTED TO LUE WITH VERSATILE DRESSING IN PLACE. SKIN TEAR TO SACRAL AREA WITH OPTIFOAM IN PLACE. ISOGEL MATTRESS IN PLACE. BED IN LOW POSITION. CALL LIGHT IN REACH. WILL CONT TO MONITOR
--- NOTE | 2019-11-27 21:51 | NUR ---
BLOOD SUGAR 240. INSULIN GTT TITRATED TO 2 UNITS/HR PER INSULIN GTT PROTOCOL
--- NOTE | 2019-11-27 22:30 | NUR ---
DR. COONEY AT BEDSIDE BEDSIDE. UPDATED ON PT'S STATUS. ALL QUESTIONS/CONCERNS ADDRESSED. ENDORSING ALL CARE
[2019-11-28] VITALS (17 sets, daily range): BP systolic 105–123; BP diastolic 46–57; Ht 154.9 cm; Wt 64.7 kg
[2019-11-28 04:50] LABS: PLATELET COUNT 170 x10^3mcL (130-400)
[2019-11-28 05:03] LABS: BAND NEUTROPHIL 3 % (0-10); MONOCYTE 2 % (0-7); SEGMENTED NEUTROPHILS 90 % (37-75)
[2019-11-28 05:04] LABS: CALCIUM 8.1 mg/dL (8.5-10.1); CARBON DIOXIDE 27.7 mmol/L (21-32); CREATININE SERUM 3.2 mg/dL (0.6-1.0); MAGNESIUM 2.2 mg/dL (1.8-2.4); PHOSPHOROUS 2.4 mg/dL (2.5-4.9); POTASSIUM SERUM 3.6 mmol/L (3.5-5.1)
[2019-11-28 05:14] LABS: rbc morphology (normal/abnorm) ABNORMAL (NORMAL)
--- NOTE | 2019-11-28 06:49 | NUR ---
BLOOD SUGAR 224. INSULIN GTT TITRATED TO 2 UNITS/HR PER ORDER
--- NOTE | 2019-11-28 07:05 | NUR ---
REPORT GIVEN TO ASHA BRUNER FOR CONTINUITY OF CARE. ALL QUESTIONS/CONCERNS ADDRESSED. ENDORSING ALL CARE
--- NOTE | 2019-11-28 07:05 | NUR ---
REPORT RECEIVED FROM EMILY BRUNER.
--- NOTE | 2019-11-28 07:40 | NUR ---
RT MCNEIL ATTEMPTED CPAP AT THIS TIME, VENT ALARMED APNEA AND OBSERVATION CONFIRMED NO ATTEMPT AT SPONTANEOUS RESPIRATION. PT PROMPTLY PLACED BACK ON FULL VENT SUPPORT.
--- NOTE | 2019-11-28 08:00 | NUR ---
PT SITTING UP IN BED WITH HOB ELEVATED 30 DEGREES. PT LETHARGIC, OPENS EYES TO TOUCH. PUPILS SLUGGISH 3MM. INTUBATED ETT 7.5 AT LL 22 CM. VENTILATOR A/C FIO2:35, TIDAL VOLUME:350, RATE:20, PEEP:5. NO ACUTE RESP DISTRESS NOTED, 02 SAT 100%. LIJ TRIPLE LUMEN CENTRAL LINE IN PLACE, DRESSING CDI. INSULIN DRIP INFUSING AT 2 UNITS/HR TO LIJ, PER PROTOCOL, BLOOD GLUCOSE WAS 231. CVP:10 TO LIJ. IV TO LAC AND RFA SALINE LOCKED, FLUSHED WELL, NO SIGNS OF INFILTRATION NOTED. FLEXISEAL IN PLACE. DRESSING TO RIGHT HIP AND SACRUM, CDI. PT POSITIONED ON RIGHT SIDE WITH HEELS ELEVATED. BED IN LOWEST POSITION. SAFETY MAINTAINED. WILL CONTINUE TO MONITOR.
--- NOTE | 2019-11-28 08:10 | NUR ---
INSULIN GTT REMAINS AT 2 UNITS/HR FOR POC GLUCOSE 237.
--- NOTE | 2019-11-28 09:15 | NUR ---
CALLED PHARMACY REGARDING FERRLECIT IV SCHEDULED AT 0900, PER IRAJ WILL BRING IN DOSE.
--- NOTE | 2019-11-28 10:41 | NUR ---
SPOKE WITH FENRANDO INGOT BUGGY OPERATOR REGARDING DEPRESSED ST WAVE, PER FERNANDO INGOT BUGGY OPERATOR ORDER EKG, ORDER PLACED TORB.
--- NOTE | 2019-11-28 11:15 | NUR ---
PT BLOOD SUGAR CHECKED WAS 292, INCREASED INSULIN DRIP TO 3 UNITS/HR PER PROTOCOL. WILL CONTINUE TO MONITOR.
--- NOTE | 2019-11-28 12:30 | NUR ---
SPOKE TO AND ALL QUESTIONS ANSWERED, ALL COMORBIDITIES RELATED TO DELAY WOUND HEALING AND FURTHER SKIN BREAKS EXPLAINED, HE VERBALIZES UNDERSTANDING.
--- NOTE | 2019-11-28 13:02 | NUR ---
SPOKE WITH FERNANDO NEUROSURGICAL PHYSICIAN ASSISTANT, PER FERNANDO NEUROSURGICAL PHYSICIAN ASSISTANT WILL PUT IN DISCHARGE ORDERED PLAN IS TO TRANSFER PT TO CONTRACTED FACILITY FOR TRACH PLACEMENT.
[2019-11-28] MEDS ORDERED: MERREM IV1 GM INJ (13:04)
[2019-11-28] MEDS ORDERED: MIDODRINE HYDRO10 M1 PO (13:04)
--- NOTE | 2019-11-28 14:16 | NUR ---
PT BLOOD SUGAR CHECKED WAS 249. DECREASED INSULIN DRIP TO 2 UNITS/HR PER PROTOCOL. WILL CONTINUE TO MONITOR.
--- NOTE | 2019-11-28 14:47 | NUR ---
DR. DA SILVA AT BEDSIDE. DR. DA SILVA MADE AWARE OF EKG DONE TODAY, PER DR. DA SILVA WILL CHECK EKG AND GIVE RECOMMENDATIONS.
--- NOTE | 2019-11-28 15:08 | NUR ---
WOUND VAC AND WOUND VAC SUPPLIES SHOULD ALL BE SENT WITH YAEL TAYLOR, SINCE WOUND VAC AND WOUND VAC SUPPLIES ARE ALREADY BILLED TO PT. WILL MAKE AWARE.
--- NOTE | 2019-11-28 15:13 | NUR ---
CALLED YA[facility] TAYLOR, MADE AWARE REGARDING WOUND VAC AND WOUND VAC SUPPLIES.
--- NOTE | 2019-11-28 16:06 | NUR ---
DIALYSIS NURSE AT BEDSIDE.
--- NOTE | 2019-11-28 18:32 | NUR ---
RECEIVED CALL FROM JAH BEST SECOND JOBS FROM [facility]. PER JAH BED IS AVAILABLE AT [place], WILL SET UP TRANSPORT WITH [facility] AND CALL BACK WITH BED NUMBER, ACCEPTING AND FIRER LOCOMOTIVE TIME.
--- NOTE | 2019-11-28 19:10 | NUR ---
RECEIVED REPORT FROM MERT BRUNER. ETT ATTCHED TO VENT. BREATHING IS E/U. PT ATTACHED TO PASSENGER RELATIONS REPRESENTATIVE AND CONT PULSE OX MONITORING. NO S/S OF DISTRESS NOTED. HOB 30 DEGREES. SEE ASSESSMENT FOR FULL DETAILS. BED IN LOW POSITION. CALL LIGHT IN REACH. WILL CONT TO MONITOR.
--- NOTE | 2019-11-28 19:11 | NUR ---
CARE ENDORSED TO VICE PRESIDENT MEDICAL AFFAIRS RN. ALL QUESTIONS AND CONCERNS ADDRESSED.
--- NOTE | 2019-11-28 19:59 | NUR ---
REPORT GIVEN TO GERSON BRUNER AT [facility] FOR CONTINUITY OF CARE. ALL QUESTIONS/CONCERNS ADDRESSED.
--- NOTE | 2019-11-28 20:18 | NUR ---
PT'S AT BEDSIDE. PT IN AGREEMENT WITH TRANSFER, CONSENT SIGNED. WOUND VAC WITH 5 BOXES OF SUPPLIES RETURNED TO PT'S , CONSENT SIGNED FOR RETURN AND PLACED IN CHART.
--- NOTE | 2019-11-28 21:15 | NUR ---
REPORT GIVEN TO [facility] FOR TRANSFER. ALL QUESTIONS/CONCERNS ADDRESSED. PT CONNECTED TO [facility] GREEN INSPECTOR AND CONTINOUS PULSE OX. PT TRANSFERED TO THE [facility] WITH NO COMPLICATIONS. ETT REMAINS ATTACHED TO VENT. BREATHING IS E/U. FLEXISEAL REMAINS INTACT/SECURED. LAC/RAC IV'S PATENT/SALINE LOCKED. LIJ TLC CVC INTACT/SECURED. NO S/S OF DISTRESS NOTED. GERSON BRUNER AT [facility] TO ASSUME CARE. PT TRANSFERRED AT THIS TIME
== END 2019-11-28 21:00 | disposition short-term general hospital (02) | DRG 207 ==
LOC: ED 18:46 → IC 23:08 → DU 23:08 → IC 23:08 → DU 11-03 00:22 → MU 11-09 09:56 → DU 11-16 06:50 → IC 11-16 14:29 → DU 11-17 23:59 → IC 11-20 16:24 → DU 11-20 16:25 → IC 11-20 16:26
PROVIDERS: Emergency Medicine; Family Medicine; General Practice; Internal Medicine; Internal Medicine Critical Care Medicine; Internal Medicine Gastroenterology; Surgery; ADMIT Internal Medicine
PROC: 3E1M39Z Irrigation of Peritoneal Cavity using Dialysate, Percutaneous Approach (ICD-10-PCS; 2019-11-04)
PROC: 0DB58ZX Excision of Esophagus, Via Natural or Artificial Opening Endoscopic, Diagnostic (ICD-10-PCS; 2019-11-06)
PROC: 0HBHXZZ Excision of Right Upper Leg Skin, External Approach (ICD-10-PCS; 2019-11-07)
PROC: 0BH18EZ Insertion of Endotracheal Airway into Trachea, Via Natural or Artificial Opening Endoscopic (ICD-10-PCS; 2019-11-20)
PROC: 05HM33Z Insertion of Infusion Device into Right Internal Jugular Vein, Percutaneous Approach (ICD-10-PCS; 2019-11-20)
PROC: 5A1955Z Respiratory Ventilation, Greater than 96 Consecutive Hours (ICD-10-PCS; principal; 2019-11-20 10:30)
PROC: 05HN33Z Insertion of Infusion Device into Left Internal Jugular Vein, Percutaneous Approach (ICD-10-PCS; 2019-11-21)
DX: J69.0 Pneumonitis due to inhalation of food and vomit (principal); A41.9 Sepsis, unspecified organism; I21.A1 Myocardial infarction type 2; E43 Unspecified severe protein-calorie malnutrition; N18.6 End stage renal disease; J96.01 Acute respiratory failure with hypoxia; R65.21 Severe sepsis with septic shock; B37.81 Candidal esophagitis; I13.11 Hypertensive heart and chronic kidney disease without heart failure, with stage 5 chronic kidney disease, or end stage renal disease; F10.188 Alcohol abuse with other alcohol-induced disorder; J44.1 Chronic obstructive pulmonary disease with (acute) exacerbation; I25.10 Atherosclerotic heart disease of native coronary artery without angina pectoris; R13.10 Dysphagia, unspecified; E86.0 Dehydration; E87.6 Hypokalemia; E11.65 Type 2 diabetes mellitus with hyperglycemia; E11.22 Type 2 diabetes mellitus with diabetic chronic kidney disease; L89.210 Pressure ulcer of right hip, unstageable; L89.310 Pressure ulcer of right buttock, unstageable; I48.0 Paroxysmal atrial fibrillation; R74.0 Nonspecific elevation of levels of transaminase and lactic acid dehydrogenase [LDH]; D63.1 Anemia in chronic kidney disease; Z99.2 Dependence on renal dialysis; Z79.84 Long term (current) use of oral hypoglycemic drugs; Z79.01 Long term (current) use of anticoagulants; Z79.82 Long term (current) use of aspirin; Z95.1 Presence of aortocoronary bypass graft; Z86.73 Personal history of transient ischemic attack (TIA), and cerebral infarction without residual deficits
CPT/HCPCS: 31500; 36556; 36600; 43235; 82962; 83880; 84439; 87046; 87046-59; 92526-GN; 92610-GN; 94150; 97110-GP; 97116-GP; 97530-GP; A4301; A4628; G0378; J0132; J0456; J0690; J0696; J0885-EC; J1200; J1450; J1610; J1642; J1644; J1720; J1815; J1956; J2001; J2185; J2250; J2310; J2405; J2543; J2765; J2916; J2997; J3010; J3370; J3475; J3480; J3490; J7030; J7040; J7050; J7060; J7120; J8597; P9045; P9047; Q0092; Q9967